=== PATIENT | male | born 1935 | race Caucasian/White ===

== ENCOUNTER 2016-08-20 17:32 | Day surgery (SDC) | payer MEDICARE, OTHER ==
[~2016-08-20] VITALS: Ht 182.9 cm; Wt 130.1 kg
[~2016-08-20 17:32] MED LIST: ASPI-611 PO; FEXO1TAB11 PO; LISI-621 PO; LISI1TAB13 PO; NAPR220T61 PO; PANT40TA27 PO; PROP120C2 PO
--- OUTSIDE RECORDS SUMMARY | 2016-08-20 17:42 | XMS REPORT | Continuity of Care Document ---
Author Author [facility] Organization [facility] Address Unknown Phone Unavailable Support Name Relationship Address Phone TORIE NASH MD Caregiver [address] [place] [address] [phone] HEBER FRENCH MD Caregiver [facility] [address] [place] [address] SNEHAL DIETZ Next Of Kin [phone] [id number] Insurance Providers Payer Name Policy Number Subscriber Name Relationship Medicare [id number] Dion Dietz 20 Self Blue Cross Select Plan 65 [id number] Dion Dietz 20 Self Advance Directives Directive Response Recorded Date/Time Ordered Resuscitation Status Full Code 05/01/14 1:49pm Problems No known problems or medical conditions. Medications Medication Dose Route Sig Days/Qty Instructions Order Date Discontinued Date Status Tamsulosin Hcl 0.4 Mg PO DAILY 08/11/08 Active Pantoprazole Sodium 40 Mg PO DAILY 08/11/08 Active Propranolol Hcl 120 Mg PO TWICE A DAY 08/11/08 Active Triamterene/Hydrochlorothiazid 1 Cap PO DAILY 08/11/08 11/10/12 Discontinued Amlodipine Besylate 5 Mg PO DAILY 08/11/08 Active Aspirin 81 Mg PO DAILY 08/11/08 Active Bumetanide 2 Mg PO DAILY 11/10/12 05/01/14 Discontinued Lisinopril 1 Tab PO DAILY 05/01/14 Active Lisinopril/Hydrochlorothiazide 1 Tab PO DAILY 05/01/14 Active Fexofenadine/Pseudoephedrine 0.5 Tab PO DAILY 05/01/14 Active Naproxen Sodium 220 Mg PO NEEDED PRN PAIN Take 1 tablet, by mouth, daily with breakfast. 05/01/14 Active Sulfamethoxazole/Trimethoprim 1 Tab PO TWICE A DAY 28 Qty 05/03/14 Active Social History Social History Problem Response Recorded Date/Time Smoking Status Never smoker 05/01/2014 12:09pm Chewing Tobacco Status No 11/09/2012 12:52pm Hx Substance Use No 05/01/2014 12:09pm Hx Alcohol Use No 05/01/2014 12:09pm Has the pt used tobacco in the last 12 months No 05/01/2014 12:09pm Query Response Start Date Stop Date Smoking Status Never smoker Hospital Discharge Instructions No hospital discharge instructions. Plan of Care No plan of care. Functional Status No functional status results. Allergies, Adverse Reactions, Alerts Allergen Type Severity Reaction Status Last Updated No Known Drug Allergies Allergy Unknown Active 01/14/11 Immunizations Name Given Type Hx Influenza Vaccination Y MAR 2014 Historical Hx Pneumococcal Vaccination Y 2007 Historical Hx Influenza Vaccination Y MAR 2014 Historical Hx Tetanus Diptheria Yes Historical Vital Signs Acute Vital Signs Vital Response Date/Time Temperature (Fahrenheit) 97.0 deg F (96.8 - 99.1) Temperature (Calculated Celsius) 36.45548 degrees C (36.0 - 37.3) Temperature Source Oral Pulse Rate (adult) 48 bpm (60 - 100) Respiratory Rate 16 breaths/min (10 - 20) O2 Sat by Pulse Oximetry 95 % (90 - 100) Oxygen Delivery Method Room Air Blood Pressure 149/65 mm Hg Blood Pressure Source Automatic Cuff Height 6 ft 0 in Weight 274 lb Body Mass Index 37.0 kg/m^2 Results Test Source Date Result Interp. Ref. Range Comments Activated Partial Thromboplast Time May 02, 2014 7:56am 32.3 SEC N 24-36 COMMENT TO SCU AT 0700 Alanine Aminotransferase (ALT/SGPT) May 02, 2014 7:56am 31 U/L N 21 -72 COMMENT TO SCU AT 0700 Albumin May 02, 2014 7:56am 4.1 G/DL N 3.5-5.0 COMMENT TO SCU AT 0700 Albumin/Globulin Ratio May 02, 2014 7:56am 1.3 RATIO N 1.1-2.2 COMMENT TO SCU AT 0700 Alkaline Phosphatase May 02, 2014 7:56am 68 U/L N 38-126 COMMENT TO SCU AT 0700 Anion Gap May 02, 2014 7:56am 13 MEQ/L N 5-15 COMMENT TO SCU AT 0700 Aspartate Amino Transf (AST/SGOT) May 02, 2014 7:56am 24 U/L N 17- 59 COMMENT TO SCU AT 0700 B-Type Natriuretic Peptide July 31, 2009 9:30pm 76 PG/ML N 15-100 BUN/Creatinine Ratio May 02, 2014 7:56am 20 RATIO N 6-26 COMMENT TO SCU AT 0700 Basophils # (Auto) May 02, 2014 7:56am 0.1 T/MM3 N 0-0.2 COMMENT TO SCU AT 0700 Basophils (%) (Auto) May 02, 2014 7:56am 1.1 % N 0-2 COMMENT TO SCU AT 0700 Blood Urea Nitrogen May 02, 2014 7:56am 18.0 MG/DL N 9-20 COMMENT TO SCU AT 0700 Calcium Level May 02, 2014 7:56am 9.5 MG/DL N 8.4-10.2 COMMENT TO SCU AT 0700 Calculated Osmolality May 02, 2014 7:56am 279 MOSM/KG N 261-280 COMMENT TO SCU AT 0700 Carbon Dioxide Level May 02, 2014 7:56am 29 MEQ/L N 22-30 COMMENT TO SCU AT 0700 Chemistry Specimen Hemolysis May 02, 2014 7:56am < 15 0-25 0-25 : No Hemolysis.26-70: Slight Hemolysis - can falsely elevate K and Urine Protein. 71-285: Moderate Hemolysis - can falsely elevate K, Troponin I, CA 19-9, PTH, CSF GLucose, and Urine Protein, and can falsely decrease Phenytoin. 286-999: Gross Hemolysis - can falsely elevate K, Troponin I, CA 19-9, PTH, CSF Glucose, and Urine Protine, and can falsely decrease Phenytoin. Recommend specimen recollection. Chloride Level May 02, 2014 7:56am 102 MEQ/L N 98-107 COMMENT TO SCU AT 0700 Creatine Kinase MB December 24, 2012 11:46am 1.3 NG/ML N 0-3.4 Creatinine May 02, 2014 7:56am 0.9 MG/DL N 0.8-1.5 COMMENT TO SCU AT 0700 D-Dimer December 24, 2012 11:46am < 150 NG/ML 0-230 <224 NG/ML= PRESUMPTIVE NEGATIVE FOR PE OR DVT>224 NG/ML=ADDITIONAL EVALUATION FOR PE OR DVT RECOMMENDED Eosinophils # (Auto) May 02, 2014 7:56am 0.3 T/MM3 N 0-0.5 COMMENT TO SCU AT 0700 Eosinophils (%) (Auto) May 02, 2014 7:56am 3.1 % N 0-4 COMMENT TO SCU AT 0700 Erythrocyte Sedimentation Rate January 14, 2011 1:40pm 11 MM/HR N 0-15 Globulin May 02, 2014 7:56am 3.2 G/DL N 2.4-3.6 COMMENT TO SCU AT 0700 Glomerular Filtration Rate Calc May 02, 2014 7:56am 82 - COMMENT TO SCU AT 0700 Glucose Level May 02, 2014 7:56am 104 MG/DL N 75-110 COMMENT TO SCU AT 0700 Hematocrit May 02, 2014 7:56am 45.4 % N 41-53 COMMENT TO SCU AT 0700 Hemoglobin May 02, 2014 7:56am 15.3 GM/DL N 13.5-17.5 COMMENT TO SCU AT 0700 Icterus Index May 02, 2014 7:56am < 2 0-7 COMMENT TO SCU AT 0700 Immature Granulocyte # (Auto) May 02, 2014 7:56am 0.01 T/MM3 N 0.00 -0.03 COMMENT TO SCU AT 0700 Immature Granulocyte % (Auto) May 02, 2014 7:56am 0.1 % N 0.0-0.5 COMMENT TO SCU AT 0700 Lab Scanned Report February 14, 2014 12:05pm LAB TEST FORM REQUEST [id number] - Lymphocytes # (Auto) May 02, 2014 7:56am 2.6 T/MM3 N 1-4.8 COMMENT TO SCU AT 0700 Lymphocytes (%) (Auto) May 02, 2014 7:56am 31.4 % N 23-45 COMMENT TO SCU AT 0700 Mean Corpuscular Hemoglobin May 02, 2014 7:56am 29.0 UUG N 26-34 COMMENT TO SCU AT 0700 Mean Corpuscular Hemoglobin Concent May 02, 2014 7:56am 33.7 GM/DL N 31-37 COMMENT TO SCU AT 0700 Mean Corpuscular Volume May 02, 2014 7:56am 86.0 UM3 N 80-100 COMMENT TO SCU AT 0700 Mean Platelet Volume May 02, 2014 7:56am 10.9 UM3 N 9.4-12.4 COMMENT TO SCU AT 0700 Monocytes # (Auto) May 02, 2014 7:56am 0.6 T/MM3 N 0-0.8 COMMENT TO SCU AT 0700 Monocytes (%) (Auto) May 02, 2014 7:56am 7.4 % N 0-9.0 COMMENT TO SCU AT 0700 Neutrophils # (Auto) May 02, 2014 7:56am 4.8 T/MM3 N 1.8-7.7 COMMENT TO SCU AT 0700 Neutrophils (%) (Auto) May 02, 2014 7:56am 56.9 % N 33-66 COMMENT TO SCU AT 0700 Platelet Count May 02, 2014 7:56am 204 T/MM3 N 130-400 COMMENT TO SCU AT 0700 Potassium Level May 02, 2014 7:56am 3.8 MEQ/L N 3.6-5 COMMENT TO SCU AT 0700 Prothromb Time International Ratio May 02, 2014 7:56am 1.05 N 0.81- 1.09 THERAPUTIC RANGE=2.00-3.00 FOR ANTI-THROMBOSIS THERAPUTIC RANGE=2.50- 3.50 FOR IMPLANTED VALVE RDW Standard Deviation May 02, 2014 7:56am 43.5 FL N 36.9-50.2 COMMENT TO SCU AT 0700 Red Blood Count May 02, 2014 7:56am 5.28 M/MM3 N 4.50-5.90 COMMENT TO SCU AT 0700 Sodium Level May 02, 2014 7:56am 144 MEQ/L N 134-144 COMMENT TO SCU AT 0700 Total Bilirubin May 02, 2014 7:56am 1.10 MG/DL N 0.20-1.30 COMMENT TO SCU AT 0700 Total Protein May 02, 2014 7:56am 7.3 G/DL N 6.3-8.2 COMMENT TO SCU AT 0700 Troponin I December 24, 2012 11:46am 0.015 ng/ml N 0-0.12 Turbidity May 02, 2014 7:56am < 20 0-20 COMMENT TO SCU AT 0700 Urine Bacteria February 14, 2014 11:15am 3+ H - Urine Bilirubin February 14, 2014 11:15am Negative - Urine Blood February 14, 2014 11:15am 2+ H - Urine Collection Type February 14, 2014 11:15am Voided-not cc-midstr - Urine Color February 14, 2014 11:15am [place] - Urine Culture Indicated February 14, 2014 11:15am Cult reflexed &setup - Urine Glucose (UA) February 14, 2014 11:15am Trace H - Urine Ketones February 14, 2014 11:15am 1+ H - Urine Leukocyte Esterase February 14, 2014 11:15am 2+ H - Urine Nitrite February 14, 2014 11:15am Positive H - Urine Protein February 14, 2014 11:15am 2+ H - Urine RBC February 14, 2014 11:15am 10-20 /HPF H - Urine Renal Epithelial Cells February 14, 2014 11:15am 1-3 /HPF - Urine Specific [place] February 14, 2014 11:15am 1.025 - Urine Squamous Epithelial Cells February 14, 2014 11:15am 0-5 - Urine Turbidity February 14, 2014 11:15am Clear - Urine Urobilinogen February 14, 2014 11:15am >=8.0 EU/DL H - Urine WBC February 14, 2014 11:15am Tntc /HPF H - Urine WBC Clumps February 14, 2014 11:15am Moderate H - Urine pH February 14, 2014 11:15am 5.0 - White Blood Count May 02, 2014 7:56am 8.4 T/MM3 N 4.5-11.0 COMMENT TO SCU AT 0700 Urine Culture Urine, Voided-Not Cc-Midstream February 14, 2014 12:04pm Enterobacter Aerogenes Name: DION DIETZ Unit #: [id number] : 1935 Sex: M Loc / Svc: [facility] DOS: 02/14/14 Signed Report #: [id number] DIAGNOSTIC IMAGING REPORT TYPE OF EXAM: US BLADDER Dictated By: AYSE QUINN MD INDICATION: ITS.REASON: 600.2, 595.0 BPH WITH URINARY PROBLEM US BLADDER: Comparison: None Findings: Grayscale and color Doppler imaging of the bladder shows the presence of bilateral ureteral jets. Bladder volume is somewhat low. There is an impression on the bladder base by the prostate which appears mildly enlarged, but is incompletely evaluated. Very minimal emptying of the bladder on postvoid images with some debris seen in the dependent aspect. Pre-void bladder volume was 250.2 mL. Postvoid bladder volume is 186.1 mL. Impression: Very minimal bladder emptying with a postvoid residual of 74%. . Procedures Procedure Status Date Provider(s) Transurethral resection of prostate (TURP) completed 05/02/14 TORIE NASH MD Encounters Encounter Location Date/Time Registered [facility] 02/14/14 11:52am Registered [facility] 02/14/14 11:37am
--- OUTSIDE RECORDS SUMMARY | 2016-08-20 17:42 | XMS REPORT | Summary of Care ---
Author Author Gordon Ayoub M.D. Organization Unknown Address [address] [place], [place] [id number] Phone Unavailable Care Team Providers Care Dba Developer Name Role Phone Naima Arauznuno MORGAN Unavailable Functional Status Functional Status Health Issues* Name Dates Details Functional status health issues are not documented Status: Cognitive Status Health Issues* Name Dates Details Cognitive status health issues are not documented Status: Problems Name Dates Details Migraine without aura, intractable (346.11, G43.019) Status: Active Medications Name Dates Details Inderal LA 120 MG Oral Capsule Extended Release 24 Hour TAKE 1 CAPSULE TWICE DAILY. Quantity: 60 * Started 08-Feb-2013 ActiveFexofenadine HCl - 180 MG Oral Tablet TAKE 1/2 TABLET DAILY * Refills: 0 * Started 08-Feb-2013 ActiveLisinopril 20 MG Oral Tablet TAKE 1 TABLET DAILY. * Refills: 0 * Started 08-Feb-2013 ActiveLisinopril-Hydrochlorothiazide 20-25 MG Oral Tablet * Refills: 0 * Started 08-Feb-2013 ActivePantoprazole Sodium 40 MG Oral Tablet Delayed Release TAKE 1 TABLET DAILY. * Quantity: 30 Refills: 12 * Started 08-Feb-2013 ActiveMeloxicam 7.5 MG Oral Tablet 10mg, patient is using this medicine as a research drug for arthritis * Refills: 0 * Started 08-Feb-2013 ActiveAspirin 81 MG Oral Tablet TAKE 1 TABLET DAILY. 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, K22.70) Status: Resolved History of cluster headache (V12.49, Z86.69) Status: Resolved History of deafness (V12.49, Z86.69) Status: Resolved History of dizziness (V13.89, Z87.898) Status: Resolved History of head injury (V15.59, Z87.828) Status: Resolved History of hypertension (V12.59, Z86.79) Status: Resolved History of Numbness (782.0, R20.0) Status: Resolved History of pollen-food allergy (V15.05, Z91.018) Status: Resolved History of sleep apnea (V13.89, Z87.898) Status: Resolved History of tinnitus (V12.49, Z86.69) Status: Resolved History of Vision problems (V41.0, H54.2) Status: Resolved Procedures Procedure Dates Details History of Back Surgery History of Knee Surgery History of Gallbladder Surgery History of Appendectomy Procedures not documented Immunization Name Dates Details Immunizations not documented Family History Mother* Name Dates Details Family history of Mother At Age ____ Status: Active Family history of Hypertension (V17.49) Status: Active Father* Name Dates Details Family history of Father At Age ____ Status: Active Family history of Hypertension (V17.49) Status: Active Family history of Stroke Syndrome (V17.1) Status: Active Social History Name Dates Details Smoking Status* Never smoker Vital Signs Date Test Result Details 20-Jul-2014 15:34 BP Systolic 136 mm[Hg] Status: BP Diastolic 60 mm[Hg] Status: Heart Rate 60 /min Status: Weight 287.5 lb Status: Results Date Description Value Details Results not documented Plan of Care Planned Observations* Name Dates Details Planned Goals not documented Goal Planned Encounters* Appointment; Provider: Gordon Ayoub On 19-Jul-2015 16:00 Instructions * Instructions not documented Encounters Appointment; Gordon Ayoub Encounter Diagnosis: Problem not documented On 20-Jul-2014 15:15 Appointment; Gordon Ayoub Encounter Diagnosis: Problem not documented On 14-Feb-2014 14:15 Appointment; Gordon Ayoub Encounter Diagnosis: Problem not documented On 08-Feb-2013 10:00
--- OUTSIDE RECORDS SUMMARY | 2016-08-20 17:42 | XMS REPORT | Summary of Care ---
Author Author Lul Argueta M.D. Unknown Address [address] [place] [address] [place] [address] Phone Unavailable Care Team Providers Care Cloth Measurer Name Role Phone Carlito Arauz PP Unavailable Functional Status Functional Status Health Issues* Name Dates Details Functional status health issues are not documented Status: Cognitive Status Health Issues* Name Dates Details Cognitive status health issues are not documented Status: Problems Name Dates Details Migraine without aura, intractable (346.11, G43.019) Status: Active BPH (benign prostatic hypertrophy) with urinary obstruction (600.01, N40.1) Status: Active Incomplete bladder emptying (788.21, R33.9) Status: Active Prostate cancer (185, C61) Status: Active Medications Name Dates Details Inderal [...] dizziness (V13.89, Z87.898) Status: Resolved History of Encounter for postoperative care (V58.49, Z48.89) Status: Resolved History of head injury (V15.59, Z87.828) Status: Resolved History of hypertension (V12.59, Z86.79) Status: Resolved History of Numbness (782.0, R20.0) Status: Resolved History of pollen-food allergy (V15.05, Z91.018) Status: Resolved History of sleep apnea (V13.89, Z87.09) Status: Resolved History of tinnitus (V12.49, Z86.69) Status: Resolved History of urinary tract infection (V13.02, Z87.440) Status: Resolved History of Vision problems (V41.0, H54.7) Status: Resolved Procedures Procedure Dates Details History of Back Surgery History of Knee Surgery History of Gallbladder Surgery History of Appendectomy History of Colonoscopy History of Reported Hx Of Knee Replacement History of Cholecystectomy Laparoscopic History of Hernia Repair History of Transurethral Resection Of Prostate (TURP) Procedures not documented Immunization Name Dates Details Immunizations not documented Family History Unknown Family Member* Name Dates Details No family history of breast cancer Comments: Other Status: Active No family history of kidney disease (V49.89, Z78.9) Comments: Family History Status: Active Family history of cerebrovascular accident (CVA) (V17.1, Z82.3) Comments: Family History Status: Active Mother* Name Dates Details Family history of Mother At Age ____ Status: Active Family history of Hypertension (V17.49) Status: Active Father* Name Dates Details Family history of Father At Age ____ Status: Active Family history of Hypertension (V17.49) Status: Active Family history of Stroke Syndrome (V17.1) Status: Active Social History Name Dates Details Smoking Status* Never smoker Vital Signs Date Test Result Details 16-May-2015 14:18 BP Systolic 140 mm[Hg] Status: BP Diastolic 78 mm[Hg] Status: Heart Rate 65 /min Status: Height 73 in Status: Weight 287 lb Status: Body Mass Index Calculated 37.87 kg/m2 Status: Body Surface Area Calculated 2.51 m2 Status: Results Date Description Value Details Results not documented Plan of Care Planned Observations* Name Dates Details Planned Goals not documented Goal Planned Encounters* Appointment; Provider: Lul Argueta On 21-May-2016 13:30 * Appointment; Provider: Gordon Ayoub On 19-Jul-2015 16:00 Instructions * Instructions not documented Encounters Appointment; Lul Argueta Encounter Diagnosis: Problem not documented On 16-May-2015 14:00 Appointment; Gordon Ayoub Encounter Diagnosis: Problem not documented On 20-Jul-2014 15:15 Appointment; Gordon Ayoub Encounter Diagnosis: Problem not documented On 14-Feb-2014 14:15
--- OUTSIDE RECORDS SUMMARY | 2016-08-20 17:42 | XMS REPORT | Summary of Care ---
Author Author Lul Argueta M.D. Unknown Address [address] [place] [address] [place] [address] Phone Unavailable Care Team Providers Care Case Making Machine Operator Name Role Phone Lul Argueta M.D. Unavailable Unavailable Mason Banks Unavailable Unavailable Functional Status Name Dates Details Functional status health issues are not documented Status: Name Dates Details Cognitive status health issues are not documented Status: Problems Name Dates Details Incomplete bladder emptying (788.21, R33.9) Status: Active Diplopia (368.2, H53.2) Status: Active Migraine without aura, intractable (346.11, G43.019) Status: Active Prostate cancer (185, C61) Status: Active BPH (benign prostatic hypertrophy) with urinary obstruction (600.01, N40.1) Status: Active Medications Name Dates Details Inderal LA 120 MG Oral Capsule Extended Release 24 Hour TAKE 1 CAPSULE TWICE DAILY. Quantity: 60 * Start 08-Feb-2013 Active Fexofenadine HCl - 180 MG Oral Tablet TAKE 1/2 TABLET DAILY * Refills: 0 * Start 08-Feb-2013 Active Lisinopril 20 MG Oral Tablet TAKE 1 TABLET DAILY. * Refills: 0 * Start 08-Feb-2013 Active Lisinopril-Hydrochlorothiazide 20-25 MG Oral Tablet * Refills: 0 * Start 08-Feb-2013 Active Pantoprazole Sodium 40 MG Oral Tablet Delayed Release TAKE 1 TABLET DAILY. * Quantity: 30 Refills: 12 * Start 08-Feb-2013 Active Meloxicam 7.5 MG Oral Tablet 10mg, patient is using this medicine as a research drug for arthritis * Refills: 0 * Start 08-Feb-2013 Active Aspirin 81 MG TABS TAKE 1 TABLET DAILY. * Refills: 0 * Start 08-Feb-2013 Active Allergies and Adverse Reactions Name Dates Details No Known Drug Allergies (Allergy) Status: Active Past Medical History Name Dates [...] History of Transurethral Resection Of Prostate (TURP) PSA ( PROSTATE SPECIFIC ANTIGEN) 3100 Ordered: 21-May-2016 Immunization Name Dates Details Immunizations not documented Family History Name Dates Details No family history of breast cancer Comments: Other Status: Active No family history of kidney disease (V49.89, Z78.9) Comments: Family History Status: Active Family history of cerebrovascular accident (CVA) (V17.1, Z82.3) Comments: Family History Status: Active Name Dates Details Family history of Mother At Age ____ Status: Active Family history of Hypertension (V17.49) Status: Active Name Dates Details Family history of Father At Age ____ Status: Active Family history of Hypertension (V17.49) Status: Active Family history of Stroke Syndrome (V17.1) Status: Active Social History Name Dates Details - Status: Name Dates Details Never smoker Vital Signs Date Test Result Details 21-May-2016 13:45 Weight 285 lb Status: Body Mass Index Calculated 37.6 kg/m2 Status: Body Surface Area Calculated 2.5 m2 Status: Results Date Description Value Details Results not documented Plan of Care Name Dates Details Planned Observations Planned Goals not documented Planned Encounters Appointment; Provider: Lul Argueta M.D. On 22-May-2017 13:30 Appointment; Provider: Gordon Ayoub M.D. On 17-Jul-2016 16:00 Interventions Provided Labs/Procedures/Imaging* PSA ( PROSTATE SPECIFIC ANTIGEN) 3100; To be Done: 21 May 2016 Instructions Name Dates Details Instructions not documented Encounters Appointment; Gordon Ayoub M.D. Encounter Diagnosis: Problem not documented On 19-Jul-2015 16:00 Appointment; Lul Argueta M.D. Encounter Diagnosis: Problem not documented On 16-May-2015 14:00 Appointment; Gordon Ayoub M.D. Encounter Diagnosis: Problem not documented On 20-Jul-2014 15:15
--- OUTSIDE RECORDS SUMMARY | 2016-08-20 17:42 | XMS REPORT | Summary of Care ---
Author Author Lul Argueta M.D. Unknown Address [address] [place] [address] [place] [address] Phone Unavailable Care Team Providers Care Drill Press Operator Helper Name Role Phone Mason Banks Unavailable Unavailable Functional Status Name [...] m2 Status: Results Date Description Value Details 22-May-2016 09:40 PSA ( PROSTATE SPECIFIC ANTIGEN) 3100 PROSTATE SPECIFIC ANTIGEN 0.090 ng/mL Range: 0.000-4.000 Plan of Care Name Dates Details Planned Observations Planned Goals not documented Planned Encounters Appointment; Provider: Lul Argueta M.D. On 22-May-2017 13:30 Appointment; Provider: Gordon Ayoub M.D. On 17-Jul-2016 16:00 Instructions Name Dates Details Instructions not documented Encounters Appointment; Lul Argueta M.D. Encounter Diagnosis: Problem not documented On 21-May-2016 13:30 Appointment; Gordon Ayoub M.D. Encounter Diagnosis: Problem not documented On 19-Jul-2015 16:00 Appointment; Lul Argueta M.D. Encounter Diagnosis: Problem not documented On 16-May-2015 14:00 Appointment; Gordon Ayoub M.D. Encounter Diagnosis: Problem not documented On 20-Jul-2014 15:15
--- OUTSIDE RECORDS SUMMARY | 2016-08-20 17:43 | XMS REPORT | Continuity of Care Document ---
Author Author [facility] Organization [facility] Address Unknown Phone Unavailable Support Name Relationship Address Phone HEBER FRENCH MD Caregiver [address] [place] [address] Unavailable VALARIE JAY MD Caregiver [address] [place] [address] Unavailable SNEHAL DITEZ Next Of Kin [phone] [address] Insurance Providers Guarantor J LuisDion C Address [address] [address] Email [email or web address] Payer [employer] Medicare Supplement Policy Number [id number] Subscriber's Name Dion Dietz Relationship 18 Self Group Number [id number] Effective Date 14 Payer Medicare Policy Number [id number] Subscriber's Name Dion Dietz Relationship 18 Self Effective Date 02 Advance Directives Directive Response Recorded Date/Time Advanced Directives Type Living Will DPOA for Healthcare 11/30/15 5:29pm Chief Complaint and Reason for Visit Chief Complaint Laceration Reason for Visit Laceration of thumb Problems Active Problems Medical Problem Onset Date Status BPH (benign prostatic hypertrophy) Unknown Chronic Bradycardia with 31 - 40 beats per minute Unknown Acute Chest pain Unknown Acute Cluster headaches Unknown Chronic HTN (hypertension) Unknown Chronic Leukocytosis Unknown Acute SUMEET on CPAP Unknown Chronic Obesity (BMI 30-39.9) Unknown Chronic Osteoarthritis Unknown Chronic Past Problems Medical Problem Onset Date Laceration of thumb Unknown Medications Current Home Medications Medication Dose Units Route Directions Days Qty Instructions Start Date Aspirin 81 Mg Tablet 81 Mg Oral Daily 08/11/08 Fexofenadine/Pseudoephedrine (Rowan-D 24 Hour Tablet) 1 Each Tab.er.24h 0.5 Tab Oral Daily 05/01/14 Lisinopril 20 Mg Tablet 20 Mg Oral Daily 05/01/14 Lisinopril/Hydrochlorothiazide (Lisinopril-Hctz 20-25 Mg Tab) 1 Each Tablet 1 Tab Oral Daily 05/01/14 Naproxen Sodium (Aleve) 220 Mg Tablet 220 Mg Oral As Needed as needed for Pain 05/01/14 Pantoprazole Sodium 40 Mg Tablet. 40 Mg Oral Twice A Day Propranolol Hcl 120 Mg Cap.sa.24h 120 Mg Oral Twice A Day Past Home Medications Medication Directions Ordered Status Amlodipine Besylate (Norvasc) 10 Mg Tablet, 5 Mg Oral Daily 08/11/08 Discontinued Bumetanide (Bumex) 2 Mg Tablet, 2 Mg Oral Daily 11/10/12 Discontinued Pantoprazole Sodium (Protonix) 40 Mg Tablet., 40 Mg Oral Daily 08/11/08 Discontinued Propranolol Hcl 120 Mg Cap.sa.24h, 120 Mg Oral Twice A Day 08/11/08 Discontinued Triamterene/Hydrochlorothiazid (Triamterene-Hctz 37.5/25 Cp) 1 Cap Capsule, 1 Cap Oral Daily 08/11/08 Discontinued Social History Social History Problem Response Recorded Date/Time Onset Date Status Chewing Tobacco Status No 11/09/2012 12:52pm Not Applicable Not Applicable Hx Substance Use No 11/30/2015 5:47pm Not Applicable Not Applicable Hx Alcohol Use No 11/30/2015 5:47pm Not Applicable Not Applicable Has the pt used tobacco in the last 12 months No 10/18/2014 7:42am Not Applicable Not Applicable Tobacco Usage none 10/15/2014 9:43am Not Applicable Not Applicable Query Response Start Date Stop Date Smoking Status Never smoker Hospital Discharge Instructions No hospital discharge instructions. Plan of Care Discharge Date 11/30/15 6:48pm Disposition 01 DISCHARGED HOME, SELF-CARE Condition at Discharge Stable Instructions/Education Provided DI for Laceration Repair -- Simple Prescriptions See Medication Section Referrals HEBER FRENCH MD Address: [address] [place] [address] [place] [phone] Additional Instructions/Education Keep the dressing on until this evening. May remove and replace daily. Wash daily with soap and water. Have sutures removed in 7-10 days at your primary care provider's office. If any further concerns then return to ER. Care Plan and Goals Physician Care Plan Problem:Thumb Laceration Goal: Follow up with primary care provider Instructions: Take medications and follow care plan as discussed/written Functional Status No functional status results. Allergies, Adverse Reactions, Alerts Allergen Type Severity Reaction Status Last Updated No Known Drug Allergies Allergy Unknown Active 11/30/15 Immunizations Immunization Event Date Type Not Given Reason Dose Number Lot Number Sap Senior Developer VIS Given Td (adult), adsorbed 11/30/15 Administered 1 [id number] [employer] Query Response on File Recorded Date/Time Hx Influenza Vaccination Y MAR 2014 10/18/14 7:42am Hx Pneumococcal Vaccination Y 2007-SEE NOTE ON CLINICAL RESEARCH FOR PNEUMONIA. 10/18/14 7:42am Hx Influenza Vaccination Y MAR 2014 10/18/14 7:42am Hx Tetanus Diptheria Yes 10/14/14 11:00pm Influenza Vaccine Hx 201411/30/15 5:47pm Tetanus Diptheria Vaccine History 11/30/15 11/30/15 5:59pm Tdap Vaccine Hx UNKNOWN 11/30/15 5:47pm Vital Signs Acute Vital Signs Vital Response Date/Time Temperature (Fahrenheit) 98.3 deg F (96.8 - 99.1) 11/30/2015 5:29pm Temperature (Calculated Celsius) 36.49498 degrees C (36.0 - 37.3) 11/30/2015 5:29pm Pulse Rate (adult) 57 bpm (60 - 100) 11/30/2015 5:29pm Respiratory Rate 20 breaths/min (10 - 20) 11/30/2015 5:29pm O2 Sat by Pulse Oximetry 95 % (90 - 100) 11/30/2015 5:29pm Blood Pressure 188/90 mm Hg 11/30/2015 5:29pm Height (Feet) 6 feet 11/30/2015 5:29pm Height (Inches) 1.00 inches 11/30/2015 5:29pm Weight (Kilograms) 125.700 kg 11/30/2015 5:29pm Body Mass Index (BMI) 36.0 11/30/2015 5:29pm Results No known relevant diagnostic tests, laboratory data and/or discharge summary. Procedures Procedure Status Date Provider(s) X-RAY EXAM OF KNEE 1 OR 2 Completed 09/05/15 X-RAY EXAM OF KNEES Completed 09/05/15 Encounters Encounter Location Arrival/Admit Date Discharge/Depart Date Attending Provider Departed Emergency Room [facility] 11/30/15 5:27pm 11/30/15 6: 48pm VALARIE JAY MD Registered Clinic [facility] 09/05/15 11:04am HEBER FRENCH MD Recent Diagnosis
--- OUTSIDE RECORDS SUMMARY | 2016-08-20 17:43 | XMS REPORT | Summary of Care ---
Author Author Gordon Ayoub M.D. Unknown Address Unknown Phone Unavailable Care Team Providers Care Nurse Head Name Role Phone Bibi Ayoub M.D. 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 Quantity: 60 * Start 08-Feb-2013 Active Fexofenadine [...] 30 Refills: 12 * Start 08-Feb-2013 Active Aspirin 81 MG TABS TAKE 1 TABLET DAILY. * Refills: 0 * Start 08-Feb-2013 Active Inderal LA 80 MG Oral Capsule Extended Release 24 Hour TAKE 1 CAPSULE Daily Alternate with 120mg every other day. * Refills: 0 * Start 17-Jul-2016 Active AmLODIPine Besylate 5 MG Oral Tablet TAKE 1 TABLET DAILY. * Refills: 0 * Start 17-Jul-2016 Active Allergies and Adverse Reactions Name Dates [...] Status: Resolved History of sleep apnea (V13.89, Z86.69) Status: Resolved History of tinnitus (V12.49, Z86.69) [...] smoker Vital Signs Date Test Result Details 17-Jul-2016 16:05 BP Systolic 140 mm[Hg] Status: Comments: Location: ; Position: BP Diastolic 80 mm[Hg] Status: Comments: Location: ; Position: Heart Rate 80 /min Status: Comments: Location: ; Weight 289 lb Status: Body Mass Index Calculated 38.13 kg/m2 Status: Body Surface Area Calculated 2.52 m2 Status: Results Date Description Value Details Results not documented Plan of Care Name Dates Details Planned Observations Planned Goals not documented Planned Encounters Appointment; Provider: Gordon Ayoub M.D. On 21-Jul-2017 15:30 Appointment; Provider: Lul Argueta M.D. On 22-May-2017 13:30 Instructions Name Dates Details Instructions not documented Encounters Appointment; Lul Argueta M.D. Encounter Diagnosis: Problem not documented On 21-May-2016 13:30 Appointment; Gordon Ayoub M.D. Encounter Diagnosis: Problem not documented On 19-Jul-2015 16:00 Appointment; Lul Argueta M.D. Encounter Diagnosis: Problem not documented On 16-May-2015 14:00 Appointment; Gordon Ayoub M.D. Encounter Diagnosis: Problem not documented On 20-Jul-2014 15:15
--- OUTSIDE RECORDS SUMMARY | 2016-08-20 17:43 | XMS REPORT | Summary of Care ---
Author Author Lul Argueta M.D. Unknown Address [address] [place] [address] [place] [address] Phone Unavailable Care Team Providers Care Relay Assembler Name Role Phone Lul Argueta M.D. Unavailable [...]
--- OUTSIDE RECORDS SUMMARY | 2016-08-20 17:43 | XMS REPORT | Continuity of Care Document ---
Author Author [facility] Organization [facility] Address Unknown Phone Unavailable Allergies Medications Problems Date Dx Coded Attending Type Code Diagnosis Diagnosed By 10/11/2012 Gilberto Gooden MD 416.[address] [facility] PULMON HEART DIS NEC 10/11/2012 Gilberto Gooden MD 416.8 [facility] PULMON HEART DIS NEC 10/11/2012 Gilberto Gooden MD 416.[address] [facility] PULMON HEART DIS NEC Procedures Results Test Result Range BLOOD UREA NITROGEN - 10/11/12 12:39 BLOOD UREA NITROGEN 17 mg/dL 7-20 CREATININE - 10/11/12 12:39 CREATININE 1.1 mg/dL 0.8-1.3 Encounters ACCT No. Visit Date/Time Discharge Status Pt. Type Provider Facility Loc./Unit Complaint [id number] 10/11/2012 12:19:00 2012 12:19:00 DIS Outpatient Giacomo HUSTON, Gilberto [facility] W.LAB
--- OUTSIDE RECORDS SUMMARY | 2016-08-20 17:43 | XMS REPORT | Summary of Care ---
Author Author Gordon Ayoub M.D. 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 Evaluation [id number] Ordered:19-Jul-2015 Immunization Name Dates Details Immunizations not documented [...] smoker Vital Signs Date Test Result Details 19-Jul-2015 16:09 BP Systolic 130 mm[Hg] Status: BP Diastolic 82 mm[Hg] Status: Heart Rate 78 /min Status: Weight 285 lb Status: Body Mass Index Calculated 37.6 kg/m2 Status: Body Surface Area Calculated 2.5 m2 Status: Results Date Description Value Details Results not documented Plan of Care Planned Observations* Name Dates Details Planned Goals not documented Goal Planned Encounters* Appointment; Provider: Gordon Ayoub On 17-Jul-2016 16:00 * Appointment; Provider: Lul Argueta On 21-May-2016 13:30 Instructions * Instructions not documented Encounters Appointment; Gordon Ayoub Encounter Diagnosis: Problem not documented On 19-Jul-2015 16:00 Appointment; Lul Argueta Encounter Diagnosis: Problem not documented On 16-May-2015 14:00 Appointment; Gordon Ayoub Encounter Diagnosis: Problem not documented On 20-Jul-2014 15:15 Appointment; Gordon Ayoub Encounter Diagnosis: Problem not documented On 14-Feb-2014 14:15
[2016-08-20] MEDS ORDERED: FEXO180T94 PO (17:58)
[2016-08-20] MEDS ORDERED: FEXO-11 PO (17:58)
--- NOTE | 2016-08-20 18:01 | ERPDOC ---
Departure Disposition Decision Date: Aug 20, 2016 Disposition Decision Time: 20:05 Disposition: 02 TO [facility] Impression Impression Impression: Primary Impression: Chest pain, rule out acute myocardial infarction Condition: Improved Seen By: Mid-level only Referrals: HEBER FRENCH MD (Family) Problems/Meds/Labs Reviewed?: Yes Medications reviewed and manag: Yes Follow up care ordered?: Yes Mental Status: Alert, Oriented HPI - Chest Pain General Chief Complaint: Chest Pain Stated Complaint: CHEST PAIN Time Seen by Provider: 17:50 Source: patient HPI - Chest Pain Initial Comments 80-year-old male presents to ER with onset of substernal and left anterior chest pain around 1700 today. Patient reports pain has improved at this time. Rating pain a 1-2/10 at this time. Pain was accompanied by nausea and diaphoresis. Patient says he felt like he needed to burp but could not. Patient states that he had been working outside today shoveling and pulling tree stump prior to onset. Patient heart cauterization October of 2014 minimal occlusive disease. 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 Occurred At: home Pain/Severity Scale: Now: 1/10, Worst: 8/10 Location: substernal, anterior L Quality: pressure Associated Symptoms: diaphoresis, nausea/vomiting, DENIES: abdominal pain, back pain, dizziness, edema, fast HR, fatigue, fever/chills, headache, heartburn , irregular HR, rash, shortness of breath, slow HR, swelling/lump in chest, syncope, weakness Chest Pain Radiation: no radiation Nitro Today/Relief: 0.4 mg x 2, complete relief Aspirin Treatment Today: 81 mg x 4, provided by ED Prior Chest Pain/Cardiac Hallie: cardiac cath Allergies: Coded Allergies: No Known Drug Allergies (Verified Allergy, Unknown, 08/20/16) Past History Past Medical History Metabolic: hypertension, DENIES: diabetes Cardiac: angina Respiratory: DENIES: COPD, asthma GI: other (Gross's esophagus), DENIES: ulcers Male: DENIES: renal insufficiency Neurological: headaches Musculoskeletal: back pain, osteoarthritis Surgical History General: appendix, back, gallbladder, hernia Cardiac: cardiac cath Reproductive/: TURP Joint: knee Family History Family PMH: FOUND: CVA, hypertension Vaccines Hx Influenza Vaccination: Yes (MAR 2014) Hx Pneumococcal Vaccination: Yes (2008-SEE NOTE ON CLINICAL RESEARCH FOR PNEUMONIA.) Hx Tetanus Diptheria: Yes Social History Sexuality: female partner Review of Systems Constitutional Constitutional: DENIES: chills, dizziness, fever, weakness Eyes General: DENIES: erythema, exudate Lids/Accessories: DENIES: erythema, swelling ENMT Ears: DENIES: pain Sinuses: DENIES: congestion, rhinorrhea Mouth/Throat: DENIES: sore throat Cardiovascular Cardiac: chest pain, see HPI, DENIES: murmur Rhythm/Rate: DENIES: palpitations Pulmonary Respiratory: cough, see HPI, DENIES: dyspnea GI Upper Abdomen: nausea, see HPI, DENIES: pain, vomiting Lower Abdomen: DENIES: diarrhea, pain General: DENIES: dysuria, pain Musculoskeletal General: DENIES: joint pain, pain, tenderness Integumentary Skin: DENIES: color change, itching, rash Neurological General: DENIES: ataxia, change in strength, numbness, paralysis/paresis, weakness Psychiatric Psychiatric: DENIES: anxiety, depression, nervousness Physical Exam General General Nourishment: well nourished, well developed, no acute distress, adult, obese Vitals and Pain First Documented Vital Signs Date Time Temp Pulse Resp B/P Pulse Ox O2 Delivery O2 Flow Rate FiO2 08/20/16 17:36 98.3 54 22 176/77 98 Room Air Weight: Kilograms: 129.000 Height (feet): 6 Height (inches): 0 Triage Pain Scale: Eyes (brief) Eyes Brief: found: EOMI, PERRL ENMT (brief) ENMT Brief: FOUND: mucosa moist, NOT FOUND: nasal exudate, nasal swelling, pharnyx erythema Neck (brief) Neck: FOUND: trachea midline, NOT FOUND: adenopathy, spasm, tenderness, thyromegaly Respiratory (brief) Respiratory: FOUND: clear all wells, equal bilaterally, symmetrical Cardiovascular Auscultation: FOUND: S1, S2 Edema : Edema Site: bilateral Edema Location: leg Edema Degree: 2+ Abdomen (brief) Abdominal Brief: FOUND: bowel normo active x4, soft, NOT FOUND: distended, tender Musculoskeletal (brief) Musculoskeletal Brief: NOT FOUND: deformity, tenderness Integumentary (brief) Integumentary Brief: FOUND: dry, pink, warm Neurologic (brief) Neurological Brief: FOUND: CN w/o gross def to obs, motor-no gross deficits, sensory-no gross deficits Psychiatric (brief) Psychiatric Brief: FOUND: alert, normal affect, oriented Differential Diagnoses Considering: Acute FL, Angina, CHF, Esophageal Spasm, Hypertensive Emergency, Pulmonary Edema, Pulmonary Embolus, Muscle Spasm Progress Results/Orders Orders Procedure Category Date Status Time EKG EKG 08/20/16 Taken 17:33 Cmp - Comprehensive LAB 08/20/16 Complete Metabolic 18:13 Probnp LAB 08/20/16 Complete 18:13 Cbc W/Auto LAB 08/20/16 Complete Diff-Reflex Manual 18:13 INR LAB 08/20/16 Complete 18:13 PTT LAB 08/20/16 Complete 18:13 Troponin I W LAB 08/20/16 Complete Hemolysis Index 18:13 Chest, Pa & Lateral RAD 08/20/16 Taken 18:16 Iv Lock (Ed Only) EDM 08/20/16 Transmitted 18:16 Aspirin (Asa) PHA 08/20/16 Complete 18:30 Nitroglycerin PHA 08/20/16 In Process (Nitrostat) 18:30 Normal Saline (Ns) PHA 08/20/16 In Process 19:00 Place In Facility As: ADMIT 08/20/16 Transmitted 20:14 Place In Facility As: ADMIT 08/20/16 Transmitted 20:16 Ambulate SAI 08/20/16 In Process 20:16 Activity As Tolerated SAI 08/20/16 In Process 20:16 Telemetry SAI 08/20/16 In Process 20:16 Manage Oxygen SAI 08/20/16 In Process Administration 20:16 Regular Diet DIET 08/21/16 Transmitted Breakfast Normal Saline (Normal PHA 08/20/16 Logged Saline Iv) 20:16 Hydrocodone/Acetaminophen PHA 08/20/16 Logged ([place] 5/325) 20:30 Hydromorphone PHA 08/20/16 Logged (Dilaudid) 20:30 Ondansetron Inj PHA 08/20/16 Logged (Zofran) 20:30 Cbc W/Auto LAB 08/21/16 Verified Diff-Reflex Manual 04:00 Bmp - Basic Metabolic LAB 08/21/16 Verified Panel 04:00 Measure Vital Signs SAI 08/20/16 In Process 20:16 Oxygen, Continuous RT 08/20/16 Logged 20:16 Lisinopril (Prinivil) PHA 08/21/16 Logged 09:00 Pantoprazole PHA 08/20/16 Logged (Protonix) 21:00 Propranolol La PHA 08/20/16 Logged (Inderal La) 21:00 (Nf) Aspirin PHA 08/21/16 Pending 09:00 Troponin I W LAB 08/21/16 Verified Hemolysis Index 05:00 Troponin I W LAB 08/21/16 Verified Hemolysis Index 01:00 Lab Results Laboratory Tests Test 08/20/16 18:13 White Blood Count 9.0T/MM3 Red Blood Count 5.39M/MM3 Hemoglobin 15.9GM/DL Hematocrit 47.1% Mean Corpuscular Volume 87.4UM3 Mean Corpuscular Hemoglobin 29.5UUG Mean Corpuscular Hemoglobin Concent 33.8GM/DL RDW Standard Deviation 44.4FL Platelet Count 205T/MM3 Mean Platelet Volume 11.3UM3 Immature Granulocyte % (Auto) 0.2% Neutrophils (%) (Auto) 60.1% Lymphocytes (%) (Auto) 28.1% Monocytes (%) (Auto) 6.0% Eosinophils (%) (Auto) 4.9% Basophils (%) (Auto) 0.7% Absolute Immature Granulocyte (auto 0.02T/MM3 Absolute Neutrophils (auto) 5.4T/MM3 Absolute Lymphocytes (auto) 2.5T/MM3 Absolute Monocytes (auto) 0.5T/MM3 Absolute Eosinophils (auto) 0.4T/MM3 Absolute Basophils (auto) 0.1T/MM3 Prothromb Time International Ratio 1.07 Activated Partial Thromboplast Time 28.9SEC Turbidity < 20 Sodium Level 149MEQ/L Potassium Level 3.6MEQ/L Chloride Level 108MEQ/L Carbon Dioxide Level 27MEQ/L Anion Gap 14MEQ/L Blood Urea Nitrogen 14.0MG/DL Creatinine 1.0MG/DL Glomerular Filtration Rate Calc 72 BUN/Creatinine Ratio 14RATIO Glucose Level 103MG/DL Calculated Osmolality 287MOSM/KG Calcium Level 9.5MG/DL Total Bilirubin 1.40MG/DL Icterus Index < 2 Aspartate Amino Transf (AST/SGOT) 23U/L Alanine Aminotransferase (ALT/SGPT) 35U/L Alkaline Phosphatase 63U/L Troponin I 0.013ng/ml MM-Suo-U-Type Natriuretic Peptide 470PG/ML Total Protein 7.6G/DL Albumin 4.3G/DL Globulin 3.3G/DL Albumin/Globulin Ratio 1.3RATIO Chemistry Specimen Hemolysis < 15 Medications Current ED Medications Aspirin (ASA) 324 mg O ONCE PO Last administered on 08/20/16 17:48; Start 08/20 at 18:30; Stop 08/20/16 at 18:31; Status DC Nitroglycerin 0.4 mg 0.4 mg Q5MIN PRN SL CHEST PAIN Last administered on 18:32; Start 08/20/16 at 18:30 Sodium Chloride (NS) 500 ml @ 0 mls/hr Q0M IV Last administered on 08/20/16 18: 49; Start 08/20/16 at 19:00 Progress Progress Patient had complete resolution of chest pain after 2 nitro. CBC unremarkable, CMP normal except for NA 149 and total bilirubin 1.40. Troponin 0.013 ProBNP [address] elevation CXR normal Patient has remained chest pain free since nitro was given. I discussed conversation I had with Dr. Raines with patient and his family. Patient agrees to admission observation for r/o. EKG EKG : Rate: <60 Rhythm: sinus QRS: normal Intervals: normal ST/T: normal Interpreted by: signing physician (Dr. Gudino) Consult/PCP Consult/PCP #1: Time Called: 19:49 Type of discussion: Phone Consult/PCP Discussion Details I discussed patient's HPI, PMH, labs, EKG, VS, CXR, exam findings, treatment in the ED with Dr. 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 Dr. Raines said that patient could be admitted for R/O for FL under hospitalist service and then follow with him in clinic. If patient does not want to stay he will follow in clinic (low suspicion for concern since patient had negative cath October of 2014). Consult/PCP #2: Time Called: 20:05 Type of discussion: Admit Discussion/PCP Discussion Details discussed patient's HPI, PMH, labs, EKG, VS, CXR, exam findings, treatment in the ED and conversation I had with Dr. Adilson Raines with Dr. Shepherd. Dr. Shepherd will admit outpatient. Xray Xray : Xray: CXR PA/Lat Interpretation: Normal (no acute cardiopulmonary findings (Dr. Gudino)) RAUL LEÓN APRN Aug 20, 2016 18:00
--- OUTSIDE RECORDS SUMMARY | 2016-08-20 18:05 | XMS REPORT | Continuity of Care Document ---
Author Author [facility] Organization [facility] Address Unknown Phone Unavailable Support Name Relationship Address Phone TORIE NASH MD Caregiver [address] [place] [phone] HEBER FRENCH MD Caregiver [facility] [address] [facility] [address] [place] [address] SNEHAL DIETZ Next Of Kin [address] [id number] Insurance Providers Payer Name Policy Number Subscriber Name Relationship Medicare [id number] Dion Dietz 18 Self Blue Cross Select Plan 65 [id number] Dion Dietz 18 Self Advance Directives Directive [...] F (96.8 - 99.1) Temperature (Calculated Celsius) 36.01125 degrees C (36.0 - 37.3) Temperature Source [...] 14, 2014 12:05pm LAB TEST FORM REQUEST [id number] - Lymphocytes # (Auto) May 02, 2014 [...] - Urine Color February 14, 2014 11:15am [place] - Urine Culture Indicated February 14, 2014 [...] 2014 11:15am 1-3 /HPF - Urine Specific [place] February 14, 2014 11:15am 1.025 - Urine [...] Enterobacter Aerogenes Name: DION DIETZ Unit #: [id number] : 1935 Sex: M Loc / Svc: [facility] DOS: 02/14/14 Signed Report #: [id number] DIAGNOSTIC IMAGING REPORT TYPE OF EXAM: US [...] NASH MD Encounters Encounter Location Date/Time Registered [facility] 02/14/14 11:52am Registered [facility] 02/14/14 11:37am
--- OUTSIDE RECORDS SUMMARY | 2016-08-20 18:06 | XMS REPORT | Continuity of Care Document ---
Author Author [facility] Organization [facility] Address Unknown Phone Unavailable Allergies Medications Problems Date Dx Coded Attending Type Code Diagnosis Diagnosed By 10/11/2012 Gilberto Gooden MD 416.8 [facility] PULMON HEART DIS NEC 10/11/2012 Gilberto Gooden MD 416.8 [facility] PULMON HEART DIS NEC 10/11/2012 Gilberto Gooden MD 416.8 [facility] PULMON HEART DIS NEC Procedures Results Test Result Range BLOOD UREA NITROGEN - 10/11/12 12:39 BLOOD UREA NITROGEN 17 mg/dL 7-20 CREATININE - 10/11/12 12:39 CREATININE 1.1 mg/dL 0.8-1.3 Encounters ACCT No. Visit Date/Time Discharge Status Pt. Type Provider Facility Loc./Unit Complaint [id number] 10/11/2012 12:19:00 2012 12:19:00 DIS Outpatient Giacomo HUSTON, Gilberto [facility] W.LAB
[2016-08-20 18:17] LABS: ALBUMIN 4.3 G/DL (3.5-5.0); ALBUMIN/GLOBULIN RATIO 1.3 RATIO (1.1-2.2); ALKALINE PHOSPHATASE 63 U/L (38-126); ALT (SGPT) 35 U/L (21-72); ANION GAP 14 MEQ/L (5-15); AST (SGOT) 23 U/L (17-59); BUN/CREATININE RATIO 14 RATIO (6-26); CALCIUM 9.5 MG/DL (8.4-10.2); CHLORIDE 108 MEQ/L (98-107); CO2 - CARBON DIOXIDE 27 MEQ/L (22-30); GLOMERULAR FILTRATION RATE 72; GLUCOSE 103 MG/DL (75-110); POTASSIUM 3.6 MEQ/L (3.6-5); PROBNP 470 PG/ML (0-175); SODIUM 149 MEQ/L (134-144); TOTAL PROTEIN 7.6 G/DL (6.3-8.2)
[2016-08-20 18:19] LABS: BASOPHILS # (AUTO) 0.1 T/MM3 (0-0.2); BASOPHILS % (AUTO) 0.7 % (0-2); EOSINOPHILS # (AUTO) 0.4 T/MM3 (0-0.5); EOSINOPHILS % (AUTO) 4.9 % (0-4); HCT - HEMATOCRIT 47.1 % (41-53); HGB - HEMOGLOBIN 15.9 GM/DL (13.5-17.5); IMMATURE GRANULOCYTE # (AUTO) 0.02 T/MM3 (0.00-0.03); IMMATURE GRANULOCYTE % (AUTO) 0.2 % (0.0-0.5); LYMPHOCYTES # (AUTO) 2.5 T/MM3 (1-4.8); LYMPHOCYTES % (AUTO) 28.1 % (23-45); MEAN CORPUSCULAR HGB 29.5 UUG (26-34); MEAN CORPUSCULAR HGB CONC(MCHC 33.8 GM/DL (31-37); MEAN CORPUSCULAR VOLUME 87.4 UM3 (80-100); MEAN PLATELET VOLUME 11.3 UM3 (9.4-12.4); MONOCYTES # (AUTO) 0.5 T/MM3 (0-0.8); NEUTROPHILS #(AUTO)-ABSOLUTE 5.4 T/MM3 (1.8-7.7); NEUTROPHILS % (AUTO) 60.1 % (33-66); RED BLOOD COUNT 5.39 M/MM3 (4.50-5.90)
[2016-08-20 18:24] LABS: INR 1.07 (0.76-1.04); PROTHROMBIN TIME 11.7 SEC (9.31-12.49); PTT 28.9 SEC (24-36)
[2016-08-20] MEDS: NITROGLYCERIN 0.4 MG SUBLINGUAL TABLET SL PRN ×2 (18:24→18:32)
[2016-08-20] MEDS ORDERED: ASPIRIN 81 MG CHEWABLE TABLET PO ONE (18:30)
--- NOTE | 2016-08-20 18:33 | NUR ---
TO XRAY PER W/C.
--- NOTE | 2016-08-20 18:41 | NUR ---
BACK FROM XRAY
--- NOTE | 2016-08-20 18:45 | NUR ---
STATUS RATES PAIN 0/10. STATED, "IT IS GONE".
[2016-08-20] MEDS ORDERED: NORMAL SALINE 500 ML IV SCH (19:00)
--- NOTE | 2016-08-20 19:52 | NUR ---
PROVIDER Shelli LEÓN FINGERER IN TO SEE PATIENT.
[2016-08-20] MEDS ORDERED: ONDANSETRON 4mg/2ml INJECTION IV PRN (20:30)
[2016-08-20] MEDS ORDERED: HYDROCODONE/APAP 5 mg/325 mg TABLET PO PRN (20:30)
[2016-08-20] MEDS ORDERED: HYDROMORPHONE 2mg/ml INJECTION IV PRN (20:30)
--- OUTSIDE RECORDS SUMMARY | 2016-08-20 20:30 | XMS REPORT | Continuity of Care Document ---
Author Author [facility] Organization [facility]IVE Address Unknown Phone Unavailable Support Name Relationship Address Phone TORIE NASH MD Caregiver [id number] [place] [address] [phone] HEBER FRENCH MD Caregiver [facility] [address] [facility] [address] [place] [address] SNEHAL DIETZ Next Of Kin [phone] [id number] Insurance Providers Payer Name Policy Number Subscriber Name Relationship Medicare [id number] Dion Dietz 20 Self Blue Cross Select Plan 65 [id number] Dion Dietz 20 Self Advance Directives Directive [...] F (96.8 - 99.1) Temperature (Calculated Celsius) 36.19024 degrees C (36.0 - 37.3) Temperature Source [...] 14, 2014 12:05pm LAB TEST FORM REQUEST [id number] - Lymphocytes # (Auto) May 02, 2014 [...] - Urine Color February 14, 2014 11:15am [place] - Urine Culture Indicated February 14, 2014 [...] 2014 11:15am 1-3 /HPF - Urine Specific [place] February 14, 2014 11:15am 1.025 - Urine [...] Enterobacter Aerogenes Name: DION DIETZ Unit #: [id number] : 1935 Sex: M Loc / Svc: [facility] DOS: 02/14/14 Signed Report #: [id number] DIAGNOSTIC IMAGING REPORT TYPE OF EXAM: US [...] NASH MD Encounters Encounter Location Date/Time Registered [facility] 02/14/14 11:52am Registered [facility] 02/14/14 11:37am
--- OUTSIDE RECORDS SUMMARY | 2016-08-20 20:32 | XMS REPORT | Continuity of Care Document ---
Author Author [facility] Organization [facility] Address Unknown Phone Unavailable Allergies Medications Problems Date Dx Coded Attending Type Code Diagnosis Diagnosed By 10/11/2012 Gilberto Gooden MD 416.8 [facility] PULMON HEART DIS NEC 10/11/2012 Gilberto Gooden MD 416.8 [facility] PULMON HEART DIS NEC 10/11/2012 Gilberto Gooden MD 416.8 [facility] PULMON HEART DIS NEC Procedures Results Test Result Range BLOOD UREA NITROGEN - 10/11/12 12:39 BLOOD UREA NITROGEN 17 mg/dL 7-20 CREATININE - 10/11/12 12:39 CREATININE 1.1 mg/dL 0.8-1.3 Encounters ACCT No. Visit Date/Time Discharge Status Pt. Type Provider Facility Loc./Unit Complaint [id number] 10/11/2012 12:19:00 2012 12:19:00 DIS Outpatient Giacomo HUSTON, Gilberto [facility] W.LAB
--- NOTE | 2016-08-20 20:33 | NUR ---
REPORT GIVEN TO SNEHAL VAZQUEZ. NO QUESTIONS NOTED.
[2016-08-20 20:44] VITALS: Ht 182.9 cm; Wt 130.1 kg
--- NOTE | 2016-08-20 20:45 | NUR ---
ADMIT TO ROOM 148 PER CART. ABLE TO TRANSFER WITH ASSIST OF 1, STANDBY.
[2016-08-20 20:48] VITALS: BP 159/79; PULSE 51; RESP 18; TEMP 96; O2SAT 97
[2016-08-20] MEDS: PROPRANOLOL LA 120 MG CAPSULE PO SCH (21:00)
[2016-08-20] MEDS ORDERED: PANTOPRAZOLE 40 MG TABLET PO SCH (21:00)
[2016-08-20 21:31] VITALS: PULSE 51; RESP 18
[2016-08-20] MEDS: NORMAL SALINE 1,000 ML IV SCH (22:00)
--- NOTE | 2016-08-20 22:56 | HPPDOC ---
HPI - Adult Date DATE: 08/20/16 TIME: 23:27 General Chief Complaint: chest pain History of Present Illness This is a 80-year-old male that has been working outside today. Patient had onset chest pressure discomfort nonradiating. The symptoms persisted and the patient was concerned about the severity of the pain. The patient presents to the emergency department or a cardiac workup was unrevealing. The patient had a previous heart catheterization 2 years ago that showed no occlusive disease. The patient has been followed by cardiology in the past. The ER physician did discuss the patient with android programmer on-call. Mine Safety Manager felt that with a normal heart catheter, normal workup in the emergency department, that the patient did not be acute cardiac evaluation. The family was concerned about the possibility of occult disease, and as such patient is admitted for observation and rule out. Past Medical History Past Medical History barretts esophagus morbid obesity HTN cluster LEWIS allergie Surgical History Patient's Surgical History: cholecystectomy appendectomy bilateral total knee lumbar back surgery Current Medications Home Meds Reported Medications Fexofenadine HCl (Rowan Allergy) 60 Mg Tablet, 60 MG PO QOD, TAB Do not drink Apple, [place], or Grapefruit juice within 4 hours of this medication, causes decreased absorption 08/20/16 Fexofenadine HCl (Rowan Allergy) 180 Mg Tablet, 180 MG PO DAILY 08/20/16 Pantoprazole Sodium (Pantoprazole Sodium) 40 Mg Tablet.dr, 40 MG PO BID 11/30/15 Propranolol HCl (Propranolol HCl) 120 Mg Cap.sa.24h, 120 MG PO BID, CAP 10/17/14 Naproxen Sodium (Aleve) 220 Mg Tablet, 220 MG PO PRN Y for PAIN 05/01/14 Lisinopril/Hydrochlorothiazide (Lisinopril-Hctz 20-25 mg Tab) 1 Each Tablet, 1 TAB PO DAILY 05/01/14 Lisinopril (Lisinopril) 20 Mg Tablet, 20 MG PO DAILY 05/01/14 Aspirin (Aspirin) 81 Mg Tablet, 81 MG PO DAILY 08/11/08 Allergies: Coded Allergies: No Known Drug Allergies (Verified Allergy, Unknown, 08/20/16) Family History Family History: non contributory Social History Sexuality: female partner Advance Directives: Yes DPOA for Healthcare Only (AT HOME (PAPERWORK)) Social History Comments 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 The patients symptoms were relieved with nitroglycerin in the emergency department. The patients symptoms did not radiate to shoulder neck or jaw. The patient does not describe any previous symptoms like this. The patient denies any abdominal pain, no nausea or vomiting, no change in bowel movements, no blood in his stools, patient has noted increased swelling in his legs. No focal neurological complaints. A 10 point review of systems is otherwise negative except outlined above. Patients exercise tolerance is unchanged. No PND, no orthopnea Physical Exam General General Nourishment: well nourished, well developed, obese, adult Vital Signs Vital Signs Date Time Temp Pulse Resp B/P Pulse Ox O2 Delivery O2 Flow Rate FiO2 08/20/16 21:31 51 18 08/20/16 20:48 96.0 159/79 97 Room Air Height (Feet): 6 Height (Inches): 0.00 Telemetry Rhythm: Sinus Rhythm Eyes Brief: FOUND: EOMI Neck Brief: FOUND: midline, NOT FOUND: JVD, nuchal rigidity, other, spasm, tenderness, tracheal deviation Respiratory Brief: FOUND: clear all wells, equal bilaterally, NOT FOUND: other , rales, spasm, symmetrical, tenderness, wheezes Cardiovascular (brief) Cardiac Brief: FOUND: regular rate, regular rhythm, NOT FOUND: click, gallop, murmur, other, pedal edema, peripheral edema, rub Capillary Refill: <2 sec Abdomen (brief) Abdominal Brief: FOUND: BS normo active x4, pulsatile mass, soft, NOT FOUND: distended, other, tender Musculoskeletal (brief) Musculoskeletal Brief: FOUND: extremities move equally, NOT FOUND: deformity, loss of motion, other, spasm, tenderness Integumentary (brief) Integumentary Brief: FOUND: dry, pink, warm Neurologic (brief) Comments no focal deficit Neurologic RN Documented GCS Eye Opening: Verbal: Motor: Total: Psychiatric (brief) FOUND: alert, normal affect, oriented Laboratory Laboratory Tests Test 3/8/17 18:13 White Blood Count 9.0T/MM3 Red Blood Count 5.39M/MM3 Hemoglobin 15.9GM/DL Hematocrit 47.1% Mean Corpuscular Volume 87.4UM3 Mean Corpuscular Hemoglobin 29.5UUG Mean Corpuscular Hemoglobin Concent 33.8GM/DL RDW Standard Deviation 44.4FL Platelet Count 205T/MM3 Mean Platelet Volume 11.3UM3 Immature Granulocyte % (Auto) 0.2% Neutrophils (%) (Auto) 60.1% Lymphocytes (%) (Auto) 28.1% Monocytes (%) (Auto) 6.0% Eosinophils (%) (Auto) 4.9% Basophils (%) (Auto) 0.7% Absolute Immature Granulocyte (auto 0.02T/MM3 Absolute Neutrophils (auto) 5.4T/MM3 Absolute Lymphocytes (auto) 2.5T/MM3 Absolute Monocytes (auto) 0.5T/MM3 Absolute Eosinophils (auto) 0.4T/MM3 Absolute Basophils (auto) 0.1T/MM3 Prothromb Time International Ratio 1.07 Activated Partial Thromboplast Time 28.9SEC Turbidity < 20 Sodium Level 149MEQ/L Potassium Level 3.6MEQ/L Chloride Level 108MEQ/L Carbon Dioxide Level 27MEQ/L Anion Gap 14MEQ/L Blood Urea Nitrogen 14.0MG/DL Creatinine 1.0MG/DL Glomerular Filtration Rate Calc 72 BUN/Creatinine Ratio 14RATIO Glucose Level 103MG/DL Calculated Osmolality 287MOSM/KG Calcium Level 9.5MG/DL Total Bilirubin 1.40MG/DL Icterus Index < 2 Aspartate Amino Transf (AST/SGOT) 23U/L Alanine Aminotransferase (ALT/SGPT) 35U/L Alkaline Phosphatase 63U/L Troponin I 0.013ng/ml [id number] Natriuretic Peptide 470PG/ML Total Protein 7.6G/DL Albumin 4.3G/DL Globulin 3.3G/DL Albumin/Globulin Ratio 1.3RATIO Chemistry Specimen Hemolysis < 15 Radiology CXR no acute process EKG: non ischemic Assessment & Plan Assessment 1. Chest pain acute present on admission: At this time the patient has had a recent heart catheter which is reassuring. Cardiology was contacted by the ER, no recommended interventions. Well admit to a observation bed with telemetry monitoring. Serial cardiac markers. Make further recommendations by morning. Differential diagnosis includes gastroesophageal reflux disease, possible skeletal, pleurisy, unlikely unstable angina 2. History of Barretts esophagus chronic present on admission: Is quite possible that the patient has had worsening of his esophagus symptoms. The patient most recently was placed on steroids for URI symptoms. It is possible this is exacerbated his GI complaints. This has resulted in chest pain. Well continue proton pump inhibitor 3. Hypertension chronic present on admission: Well continue HANSEL inhibitor 4. DVT prophylaxis: SCD Observation admission Code Status Full Code, unverified Hospital Course Summary Disclaimer The hospital course summary below is not to be considered part of the above Progress Note. HEYDI MOHAMUD MD Aug 20, 2016 22:49
--- NOTE | 2016-08-20 23:10 | NUR ---
LOW HEART RATE: REC'D CALL FROM TELE SAYING PT'S HRT WAS RUNNING THE IN THE UPPER 40'S (47-48). SENT TIGER TEXT, REC'D CALL BACK FROM DR. MOHAMUD. HE SAID TO WITHHOLD INDERAL AND TO LET HIM KNOW IF PT'S HRT DROPS LOWER OR IF PT BECOMES SYMPTOMATIC. INDERAL WITHHELD, PT NOT SYMPTOMATIC, RESTING, WATCHING TV. WILL CONTINUE TO MONITOR.
[2016-08-21] VITALS (17 sets, daily range): BP systolic 129–195; BP diastolic 66–82; PULSE 42–52; RESP 9–27; TEMP 95.7–96.8; O2SAT 93–98
--- NOTE | 2016-08-21 02:28 | NUR ---
LOW HEART RATE: SENT TIGER TEXT REGARDING LOW HEART RATE; TELEMETRY CALLED TO STATE PT IS RUNNING A [place]ACH. CHECKED PT, PT IS NOT SYMPTOMATIC (NO PAIN OR SOA). REC'D CALL BACK FROM DR. MCGOWAN. HE ORDERED AN EKG AND DR. LEONG'S OFFICE TO BE CONSULTED AND TO READ THE EKG. I CONTACTED SALO'S OFFICE AND SPOKE WITH DARLENE TO GIVE A HEAD'S UP ON THE EKG AND THE PT'S STATUS. WILL CONTINUE TO MONITOR.
--- NOTE | 2016-08-21 04:56 | NUR ---
HEART: SENT TIGER TEXT REGARDING PT'S RECENT TELEMETRY READING, INVERTED P AND T WAVES IN V1. REC'D CALL BACK FROM DR. MCGOWAN. WILL CONTINUE TO MONITOR.
--- NOTE | 2016-08-21 05:03 | NUR ---
SHIFT SUMMARY: PT IS A&OX3, VERY FRIENDLY AND COOPERATIVE, DENIES SOA OR PAIN. PT'S , SON-IN-LAW AND GRANDDAUGHTER CAME WITH PT TO HIS ROOM, ONLY REMAINED FOR A FEW HOURS, THEN WENT HOME FOR THE NIGHT. PT IS UP WITH ONE STANDBY ASSIST TO THE BATHROOM. PT SLEEPS WITH C-PAP THAT HE BROUGHT IN FROM HOME. PT'S HEART RATE HAS BEEN LOW DURING THE NIGHT AND CONSTANT COMMUNICATION WITH THE TELEHOSPITALIST HAS TAKEN PLACE (SEE PREVIOUS NURSE NOTES). CALL LIGHT WITHIN REACH, BED ALARM ON, FREQUENT ROUNDING.
[2016-08-21 05:39] LABS: BASOPHILS % (AUTO) 0.6 % (0-2); EOSINOPHILS # (AUTO) 0.5 T/MM3 (0-0.5); EOSINOPHILS % (AUTO) 7.9 % (0-4); HCT - HEMATOCRIT 42.3 % (41-53); HGB - HEMOGLOBIN 14.3 GM/DL (13.5-17.5); IMMATURE GRANULOCYTE # (AUTO) 0.01 T/MM3 (0.00-0.03); IMMATURE GRANULOCYTE % (AUTO) 0.2 % (0.0-0.5); LYMPHOCYTES # (AUTO) 2.3 T/MM3 (1-4.8); LYMPHOCYTES % (AUTO) 36.3 % (23-45); MEAN CORPUSCULAR HGB CONC(MCHC 33.8 GM/DL (31-37); MEAN CORPUSCULAR VOLUME 88.7 UM3 (80-100); MONOCYTES # (AUTO) 0.5 T/MM3 (0-0.8); MONOCYTES % (AUTO) 8.5 % (0-9.0); NEUTROPHILS #(AUTO)-ABSOLUTE 2.9 T/MM3 (1.8-7.7); NEUTROPHILS % (AUTO) 46.5 % (33-66); RED BLOOD COUNT 4.77 M/MM3 (4.50-5.90); WBC - WHITE BLOOD COUNT 6.3 T/MM3 (4.5-11.0)
[2016-08-21 05:51] LABS: ANION GAP 10 MEQ/L (5-15); BUN/CREATININE RATIO 15 RATIO (6-26); CALCIUM 8.6 MG/DL (8.4-10.2); CHLORIDE 106 MEQ/L (98-107); CO2 - CARBON DIOXIDE 27 MEQ/L (22-30); GLOMERULAR FILTRATION RATE 72; GLUCOSE 123 MG/DL (75-110); POTASSIUM 3.2 MEQ/L (3.6-5); SODIUM 143 MEQ/L (134-144)
--- NOTE | 2016-08-21 07:23 | NUR ---
AMBULATING: PT AMBULATED TO THE BATHROOM DURING THE NIGHT TO RELIEVE HIMSELF. WHEN PT'S HRT STARTED DROPPING IN THE 40's AND 30'S, I STRONGLY DISCOURAGED PT FROM DOING SO AND OFFERED PT A URINAL, PT REFUSED TO USE THE URINAL. THE LAST TIME HE AMBULATED TO THE BATHROOM THIS MORNING BEFORE 6:00 AM, PT WAS VISIBLY OUT OF BREATH, THIS WAS NEW IN MY OBSERVATION OF THE PT. I ASKED HIM IF HE GETS SOA, PT SAID "OH, ITS PROBABLY MY ALLERGIES." I PASSED THIS INFORMATION AND THE LOW HEART RATE INFORMATION ON TO DAY SHIFT.
--- NOTE | 2016-08-21 08:08 | DI ---
INDICATION: ITS.REASON: cough and chest pain PROCEDURE: CHEST 2-VIEWS UPRIGHT (PA \T\ LAT) Encounter: Initial Comparison: October 14, 2014 Findings: The lungs are stable in appearance without new focal airspace consolidation. Hyperinflation. There is no pleural effusion or pneumothorax. The heart size, pulmonary vascularity and mediastinal contours are unchanged. IMPRESSION: Stable appearance of the chest without acute cardiopulmonary disease. .
[2016-08-21] MEDS: PROPRANOLOL LA 120 MG CAPSULE PO SCH (08:38)
[2016-08-21] MEDS: NORMAL SALINE 1,000 ML IV SCH ×2 (08:42→16:16)
--- NOTE | 2016-08-21 08:53 | NUR ---
med Dr Banks call for report on pt, gave. Reported morning dose of hrt meds given this am and hrt 53-60, SBP hard to read top number. N.O. to stop propranolol for rest of day.
[2016-08-21] MEDS ORDERED: LISINOPRIL 20 MG TABLET PO SCH (09:00)
[2016-08-21] MEDS ORDERED: ASPIRIN *EC* 81mg TABLET PO SCH (09:00)
--- NOTE | 2016-08-21 11:36 | NUR ---
CM CM IN TO VISIT PATIENT, HE IS A&O. IS PRESENT AT THE BEDSIDE. HE PLANS TO DISCHARGE HOME, DENIES ANY DISCHARGE NEEDS. CM CONTACT INFORMATION PROVIDED. Addendum: 08/21/16 at 1136 by LUDWIG HDZ RN Amended: Links added.
[2016-08-21] MEDS ORDERED: PNEUMOCOCCAL 13 VACCINE 0.5 ML SYRINGE IM ONE (13:15)
[2016-08-21] MEDS ORDERED: PNEUMOCOCCAL VAC. ADMIN. CHARGE INJ ONE (13:24)
[2016-08-21] MEDS ORDERED: LIDOCAINE 1% (10mg/ml) 30ml SDV ONE ×2 (13:27→13:29)
[2016-08-21] MEDS ORDERED: HEPARIN 1,000units in NS 500ml BAG IV ONE (13:27)
[2016-08-21] MEDS ORDERED: MIDAZOLAM 2mg/2ml INJECTION ONE (14:22)
[2016-08-21] MEDS ORDERED: FENTANYL 100mcg/2ml INJECTION ONE (14:22)
[2016-08-21] MEDS ORDERED: POTASSIUM CHLORIDE 10 MEQ TABLET PO ONE ×2 (14:29→14:30)
--- NOTE | 2016-08-21 14:29 | CONSPD ---
FAITH PILLAI RAILROAD DETECTIVE 08/21/16 1124: Consultation Info Date DATE: 08/21/16 TIME: 11:20 Date of Consultation: Aug 21, 2016 Attending Physician: Mason Banks MD Reason for Consultation: chest pain HPI - Adult Date DATE: 08/21/16 TIME: 11:20 General Date of Admission Date of Admission: Aug 20, 2016 at 20:15 Chief Complaint: chest pain History of Present Illness Darvin is a 80-year-old male patient of Dr. Juan Raines who was working outside [employer] most of yesterday and at 5:00pm had mid sternal chest pain which was nonradiating. He reports some nausea but attributed this to not eating any food since breakfast. The pain persisted after stopping work and he was concerned about the severity of the pain. He presented to the ED for a cardiac workup which was unrevealing. He had a previous heart catheterization 2 years ago that showed a few scattered irregular plaques with no occlusive disease. He and his family was concerned about the possibility of occult disease, and as such patient is admitted for observation and rule out. Dr. Santizo is consulted by Dr. Banks the patient's PCP. He is examined in his room, denies having any further chest pain, palpitations, dyspnea, nausea or diaphoresis. He reports his cholesterol is "low." Past Medical History Past Medical History Metabolic: hypertension, DENIES: diabetes Cardiac: angina Respiratory: DENIES: COPD, asthma GI: other (Gross's esophagus), DENIES: ulcers Male: DENIES: renal insufficiency Neurological: headaches Musculoskeletal: back pain, osteoarthritis Surgical History General: appendix, back, gallbladder, hernia Cardiac: cardiac cath Reproductive/: TURP Joint: knee Current Medications Home Meds Reported Medications Fexofenadine HCl (Rowan Allergy) 60 Mg Tablet, 60 MG PO QOD, TAB Do not drink Apple, Boston, or Grapefruit juice within 4 hours of this medication, causes decreased absorption 08/20/16 Fexofenadine HCl (Rowan Allergy) 180 Mg Tablet, 180 MG PO DAILY 08/20/16 Pantoprazole Sodium (Pantoprazole Sodium) 40 Mg Tablet.dr, 40 MG PO BID 11/30/15 Propranolol HCl (Propranolol HCl) 120 Mg Cap.sa.24h, 60 MG PO BID, CAP PT TO BEGIN TAKING 60MG BY MOUTH TWICE A DAY ON 08/22/16. WILL DISCUSS IN OFFICE 08/25/16 10/17/14 Naproxen Sodium (Aleve) 220 Mg Tablet, 220 MG PO PRN Y for PAIN 05/01/14 Lisinopril/Hydrochlorothiazide (Lisinopril-Hctz 20-25 mg Tab) 1 Each Tablet, 1 TAB PO DAILY 05/01/14 Lisinopril (Lisinopril) 20 Mg Tablet, 20 MG PO DAILY 05/01/14 Aspirin (Aspirin) 81 Mg Tablet, 81 MG PO DAILY 08/11/08 Allergies: Coded Allergies: No Known Drug Allergies (Verified Allergy, Unknown, 08/20/16) Family History FOUND: CVA, hypertension Vaccines 201411/30/15 UNKNOWN Social History Smoking Status: Unknown if ever smoked Marital Status: Sexuality: female partner Housing: house Advance Directives: Yes DPOA for Healthcare Only (AT HOME (PAPERWORK)) Review of Systems Constitutional: REPORTS: dizziness (at times), DENIES: chills, fever, weakness Eyes General: DENIES: pain Vision: DENIES: double vision ENMT Balance: DENIES: vertigo Sinuses: FOUND: congestion (recent resp. illness), NOT FOUND: rhinorrhea Mouth/Throat: DENIES: sore throat Cardiovascular chest pain, dyspnea on exertion Rhythm/Rate: bradycardia (reports due to Betablocker), DENIES: irregular beat, palpitations Pulmonary Respiratory: cough (everyday, due to allergies and drainage from allergy medicine), sputum (clear) GI Upper Abdomen: nausea (with chest pain, he atributed this to he hadn't eaten since breakfast), DENIES: vomiting Lower Abdomen: DENIES: blood in stool, diarrhea General: DENIES: dysuria Integumentary Skin: DENIES: rash, sores Neurological General: DENIES: headache, numbness, seizures, syncope, weakness All Other Systems All Other Systems: Reviewed (remainder of 10-point ROS Neg.) Physical Exam General General Nourishment: well nourished, well developed, obese, apparent age Vital Signs Vital Signs Date Time Temp Pulse Resp B/P Pulse Ox O2 Delivery O2 Flow Rate FiO2 08/21/16 08:00 96.8 52 16 129/82 95 Room Air Height (Feet): 6 Height (Inches): 0.00 Telemetry Rhythm: Sinus Rhythm ENMT Brief: FOUND: mucosa moist Neck Brief: NOT FOUND: JVD, carotid bruits Respiratory Brief: FOUND: clear all wells, equal bilaterally, NOT FOUND: rales , wheezes Cardiovascular (brief) Cardiac Brief: FOUND: pedal edema, regular rate, regular rhythm, NOT FOUND: click, gallop, murmur Abdomen (brief) Abdominal Brief: FOUND: BS normo active x4, soft, NOT FOUND: tender Integumentary (brief) Integumentary Brief: FOUND: dry, pink, warm Neurologic RN Documented GCS Eye Opening: Verbal: Motor: Total: Psychiatric (brief) FOUND: alert, attentive, oriented Laboratory Laboratory Tests Test 08/20/16 18:13 08/21/16 00:55 08/21/16 05:12 White Blood Count 9.0T/MM3 6.3T/MM3 Red Blood Count 5.39M/MM3 4.77M/MM3 Hemoglobin 15.9GM/DL 14.3GM/DL Hematocrit 47.1% 42.3% Mean Corpuscular Volume 87.4UM3 88.7UM3 Mean Corpuscular Hemoglobin 29.5UUG 30.0UUG Mean Corpuscular Hemoglobin Concent 33.8GM/DL 33.8GM/DL RDW Standard Deviation 44.4FL 44.2FL Platelet Count 205T/MM3 167T/MM3 Mean Platelet Volume 11.3UM3 11.0UM3 Immature Granulocyte % (Auto) 0.2% 0.2% Neutrophils (%) (Auto) 60.1% 46.5% Lymphocytes (%) (Auto) 28.1% 36.3% Monocytes (%) (Auto) 6.0% 8.5% Eosinophils (%) (Auto) 4.9% 7.9% Basophils (%) (Auto) 0.7% 0.6% Absolute Immature Granulocyte (auto 0.02T/MM3 0.01T/MM3 Absolute Neutrophils (auto) 5.4T/MM3 2.9T/MM3 Absolute Lymphocytes (auto) 2.5T/MM3 2.3T/MM3 Absolute Monocytes (auto) 0.5T/MM3 0.5T/MM3 Absolute Eosinophils (auto) 0.4T/MM3 0.5T/MM3 Absolute Basophils (auto) 0.1T/MM3 0.0T/MM3 Prothromb Time International Ratio 1.07 Activated Partial Thromboplast Time 28.9SEC Turbidity < 20 < 20 Sodium Level 149MEQ/L 143MEQ/L Potassium Level 3.6MEQ/L 3.2MEQ/L Chloride Level 108MEQ/L 106MEQ/L Carbon Dioxide Level 27MEQ/L 27MEQ/L Anion Gap 14MEQ/L 10MEQ/L Blood Urea Nitrogen 14.0MG/DL 15.0MG/DL Creatinine 1.0MG/DL 1.0MG/DL Glomerular Filtration Rate Calc 72 72 BUN/Creatinine Ratio 14RATIO 15RATIO Glucose Level 103MG/DL 123MG/DL Calculated Osmolality 287MOSM/KG 277MOSM/KG Calcium Level 9.5MG/DL 8.6MG/DL Total Bilirubin 1.40MG/DL Icterus Index < 2 < 2 Aspartate Amino Transf (AST/SGOT) 23U/L Alanine Aminotransferase (ALT/SGPT) 35U/L Alkaline Phosphatase 63U/L Troponin I 0.013ng/ml 0.016ng/ml 0.017ng/ml EB-Wdi-[id number]-Type Natriuretic Peptide 470PG/ML Total Protein 7.6G/DL Albumin 4.3G/DL Globulin 3.3G/DL Albumin/Globulin Ratio 1.3RATIO Chemistry Specimen Hemolysis < 15 < 15 < 15 Laboratory Tests Test 08/20/16 18:13 08/21/16 00:55 08/21/16 05:12 White Blood Count 9.0T/MM3 6.3T/MM3 Red Blood Count 5.39M/MM3 4.77M/MM3 Hemoglobin 15.9GM/DL 14.3GM/DL Hematocrit 47.1% 42.3% Mean Corpuscular Volume 87.4UM3 88.7UM3 Mean Corpuscular Hemoglobin 29.5UUG 30.0UUG Mean Corpuscular Hemoglobin Concent 33.8GM/DL 33.8GM/DL RDW Standard Deviation 44.4FL 44.2FL Platelet Count 205T/MM3 167T/MM3 Mean Platelet Volume 11.3UM3 11.0UM3 Immature Granulocyte % (Auto) 0.2% 0.2% Neutrophils (%) (Auto) 60.1% 46.5% Lymphocytes (%) (Auto) 28.1% 36.3% Monocytes (%) (Auto) 6.0% 8.5% Eosinophils (%) (Auto) 4.9% 7.9% Basophils (%) (Auto) 0.7% 0.6% Absolute Immature Granulocyte (auto 0.02T/MM3 0.01T/MM3 Absolute Neutrophils (auto) 5.4T/MM3 2.9T/MM3 Absolute Lymphocytes (auto) 2.5T/MM3 2.3T/MM3 Absolute Monocytes (auto) 0.5T/MM3 0.5T/MM3 Absolute Eosinophils (auto) 0.4T/MM3 0.5T/MM3 Absolute Basophils (auto) 0.1T/MM3 0.0T/MM3 Prothromb Time International Ratio 1.07 Activated Partial Thromboplast Time 28.9SEC Turbidity < 20 < 20 Sodium Level 149MEQ/L 143MEQ/L Potassium Level 3.6MEQ/L 3.2MEQ/L Chloride Level 108MEQ/L 106MEQ/L Carbon Dioxide Level 27MEQ/L 27MEQ/L Anion Gap 14MEQ/L 10MEQ/L Blood Urea Nitrogen 14.0MG/DL 15.0MG/DL Creatinine 1.0MG/DL 1.0MG/DL Glomerular Filtration Rate Calc 72 72 BUN/Creatinine Ratio 14RATIO 15RATIO Glucose Level 103MG/DL 123MG/DL Calculated Osmolality 287MOSM/KG 277MOSM/KG Calcium Level 9.5MG/DL 8.6MG/DL Total Bilirubin 1.40MG/DL Icterus Index < 2 < 2 Aspartate Amino Transf (AST/SGOT) 23U/L Alanine Aminotransferase (ALT/SGPT) 35U/L Alkaline Phosphatase 63U/L Troponin I 0.013ng/ml 0.016ng/ml 0.017ng/ml [id number]-Type Natriuretic Peptide 470PG/ML Total Protein 7.6G/DL Albumin 4.3G/DL Globulin 3.3G/DL Albumin/Globulin Ratio 1.3RATIO Chemistry Specimen Hemolysis < 15 < 15 < 15 EKG Sinus Bradycardia, 1st degree AV block Radiology DATE OF EXAM: 08/20/16 ORDERING DOCTOR: RAUL LEÓN APRN TYPE OF EXAM: CHEST, PA & LATERAL REASON FOR EXAM: cough and chest pain INDICATION: ITS.REASON: cough and chest pain PROCEDURE: CHEST 2-VIEWS UPRIGHT (PA \\T\\ LAT) Encounter: Initial Comparison: October 14, 2014 Findings: The lungs are stable in appearance without new focal airspace consolidation. Hyperinflation. There is no pleural effusion or pneumothorax. The heart size, pulmonary vascularity and mediastinal contours are unchanged. IMPRESSION: Stable appearance of the chest without acute cardiopulmonary disease. Impression/Recommendation Problems: (1) Chest pain, rule out acute myocardial infarction Status: Acute Assessment & Plan: Sternal chest pain with exertion, responded to Nitro. Serial troponin are all negative. Sinus Bradycardia with 1st Degree AV block on EKG. Last heart cath 10/2014 without occlusive disease. Patient and his were presented with the options of stress test as an outpatient or heart catheterization today; they were explained the risks and benefits of both and together they decided to proceed with heart cath. (2) Bradycardia Status: Chronic Assessment & Plan: Reports his Neurologist Dr. Santa has him on Beta blockers for his headaches and this works well. He knows it causes bradycardia and has tried reduction of dose but was not effective for headache. He reports occasional dizziness but denies syncope (3) HTN (hypertension) Status: Chronic Assessment & Plan: Suboptimal control, takes Lisinopril and Lisinopril/Hctz, as well as Beta giacomo for headache. Recommendation Chest pain: Sternal chest pain with exertion, responded to Nitro. Serial troponin are all negative. Sinus Bradycardia with 1st Degree AV block on EKG. Last heart cath 10/2014 without occlusive disease. Patient and his were presented with the options of stress test as an outpatient or heart catheterization today; they were explained the risks and benefits of both and together they decided to proceed with heart cath. Bradycardia: Reports his Neurologist Dr. Santa has him on Beta blockers for his headaches and this works well. He knows it causes bradycardia and has tried reduction of dose but was not effective for headache. He reports occasional dizziness but denies syncope. HTN: Suboptimal control, takes Lisinopril and Lisinopril/Hctz, as well as Beta giacomo for headache. Thank you for allowing us to participate in the care of this patient. DEANA SANTIZO MD 09/01/16 1027: Past Medical History Current Medications Home Meds Reported Medications Fexofenadine HCl (Rowan Allergy) 60 Mg Tablet, 60 MG PO QOD, TAB Do not drink Apple, [place], or Grapefruit juice within 4 hours of this medication, causes decreased absorption 08/20/16 Fexofenadine HCl (Rwoan Allergy) 180 Mg Tablet, 180 MG PO DAILY 08/20/16 Pantoprazole Sodium (Pantoprazole Sodium) 40 Mg Tablet.dr, 40 MG PO BID 11/30/15 Propranolol HCl (Propranolol HCl) 120 Mg Cap.sa.24h, 60 MG PO BID, CAP PT TO BEGIN TAKING 60MG BY MOUTH TWICE A DAY ON 08/22/16. WILL DISCUSS IN OFFICE 08/25/16 10/17/14 Naproxen Sodium (Aleve) 220 Mg Tablet, 220 MG PO PRN Y for PAIN 05/01/14 Lisinopril/Hydrochlorothiazide (Lisinopril-Hctz 20-25 mg Tab) 1 Each Tablet, 1 TAB PO DAILY 05/01/14 Lisinopril (Lisinopril) 20 Mg Tablet, 20 MG PO DAILY 05/01/14 Aspirin (Aspirin) 81 Mg Tablet, 81 MG PO DAILY 08/11/08 Allergies: Coded Allergies: No Known Drug Allergies (Verified Allergy, Unknown, 08/20/16) Impression/Recommendation Recommendation After examining the patient I agree with the above assessment. I am involved in the formulation of the patient's plan of care. FAITH PILLAI APRN Aug 21, 2016 11:24 DEANA SANTIZO MD Sep 01, 2016 10:27
--- NOTE | 2016-08-21 14:32 | NUR ---
status Pt A/O x3, V/S stable on RA. Pt denies C.P. , no PRN meds given. Pt ambulating well in room, denies dizziness or SOA. Pt remains NPO after breakfast. Dr Gooden in to see, decision to have heart cath. Pt taken down to clinical laboratory aides teacher via cart at 1400.
[2016-08-21] MEDS ORDERED: BISACODYL 10 MG SUPPOSITORY RECTALLY PRN (14:45)
[2016-08-21] MEDS ORDERED: LORAZEPAM 1 MG TABLET PO PRN (14:45)
[2016-08-21] MEDS ORDERED: MILK OF MAGNESIA 30 ML SUSP PO PRN (14:45)
[2016-08-21] MEDS ORDERED: PROMETHAZINE 25 MG INJECTION IV PRN (14:45)
[2016-08-21] MEDS ORDERED: NITROGLYCERIN 0.4 MG SUBLINGUAL TABLET SL PRN (14:45)
[2016-08-21] MEDS ORDERED: BISACODYL 5 MG E.C. TABLET PO PRN (14:45)
[2016-08-21] MEDS ORDERED: LORAZEPAM 2 MG/ML INJECTION IV PRN (14:45)
[2016-08-21] MEDS ORDERED: METOCLOPRAMIDE 10mg/2ml INJECTION IV PRN (14:45)
[2016-08-21] MEDS ORDERED: HYDROCODONE/APAP 5 mg/325 mg TABLET PO PRN (14:45)
[2016-08-21] MEDS ORDERED: MAG-AL + SIM LIQUID 30 ML UDC PO PRN (14:45)
[2016-08-21] MEDS ORDERED: ATROPINE 1 MG/ML VIAL IV PRN (14:45)
[2016-08-21] MEDS ORDERED: ACETAMINOPHEN 325 MG TABLET PO PRN (14:45)
[2016-08-21] MEDS ORDERED: ONDANSETRON 4mg/2ml INJECTION IV PRN (14:45)
[2016-08-21] MEDS ORDERED: MORPHINE SULFATE 4 MG SYRINGE IV PRN ×2 (14:45)
--- NOTE | 2016-08-21 14:54 | NUR ---
ADMIT PT TO ROOM 118 PER CATH CART. TRANSFERRED TO .U. BED WITH ASSIST OF 2 USING SLIDE BOARD. RT GROIN SITE NOTED TO HAVE DRESSING THAT IS D&I. PEDAL PULSES STRONG AND PALPABLE BI-LAT. PT DOZING, AROUSES TO VERBAL STIMULI. AT BEDSIDE.
--- NOTE | 2016-08-21 18:14 | NUR ---
ACTIVITY PT UP TO BR WITH STAND BY ASSIST WELL WALKING IN [place]. NO C/O DISCOMFORT. RT GROIN DRESSING REMAINS D&I AT THIS TIME.
[2016-08-21 18:18] LABS: POTASSIUM 3.4 MEQ/L (3.6-5)
--- NOTE | 2016-08-21 19:31 | CVPROF ---
CARDIAC CATHETERIZATION DATE OF PROCEDURE August 21, 2016 The patient is a pleasant 80-year-old gentleman with coronary artery disease who was admitted with symptoms of unstable angina and was referred for further evaluation by cardiac catheterization and possible intervention. Informed consent was obtained after explaining the procedure and the potential risks to the patient and who agreed to proceed with the procedure. PROCEDURE 1. Left heart catheterization. 2. Coronary angiography. 3. Left ventriculography. 4. Right femoral angiography to visualize the vessel for Mynx deployment. 5. Successful Mynx deployment for hemostasis. TECHNIQUE The patient was prepped and draped in the usual sterile techniques. 1% lidocaine was used for local anesthesia. Using modified Seldinger technique, arterial access was obtained into the right femoral artery with placement of a 6-Kiswahili arterial sheath. Conscious sedation was performed using Versed and fentanyl. LEFT VENTRICULOGRAPHY Left ventriculography in single-plane MG shallow projection showed LV function mildly reduced with ejection fraction of about 45% with no mitral regurgitation or gradient across the aortic valve. LVEDP was about 13. CORONARY ANGIOGRAPHY Left main was free of significant lesions. Left anterior descending artery wrapped around the apex and was diffusely diseased of up to about 30% stenosis. Diagonals were free of significant lesions. Left circumflex artery had a large first marginal which had minor irregularities. Distal to this marginal circumflex was somewhat small with about 50% stenosis with a small second marginal. Right coronary artery was technically dominant with minor irregularities. Right femoral angiography showed patent common femoral, proximal SFA and profunda and therefore Mynx was used for hemostasis. IMPRESSION 1. [id number] coronary artery disease as described above. 2. Mild LV dysfunction with ejection fraction of about 45%. 3. Successful Mynx deployment for hemostasis. PLAN Medical management. DENNY
--- NOTE | 2016-08-21 19:45 | NUR ---
DISMISSAL WENT OVER WRITTEN DISMISSAL INSTRUCTIONS WITH PT AND PT'S INCLUDING MEDS, F/U APPT, WOUND CARE, S/SX TO REPORT, ACTIVITY/RESTRICTIONS. BOTH VERBALIZED UNDERSTANDING. HOME MEDS RETURNED. NO NEW SCRIPTS WERE GIVEN. PT'S PERSONAL BELONGINGS GATHERED INCLUDING CPAP. [place]AK[place] [facility] [place]SP[place] BY .
[2016-08-21] MEDS ORDERED: PANTOPRAZOLE 40 MG TABLET PO SCH (20:00)
--- OUTSIDE RECORDS SUMMARY | 2016-08-22 08:52 | XMS REPORT | Continuity of Care Document ---
Author Author [facility] Organization [facility] Address Unknown Phone Unavailable Support Name Relationship Address Phone DOMINGA BANKS MD Caregiver [address] [place] [address] Unavailable DOMINGA BANKS MD Caregiver [address] [place] [address] Unavailable AICHA BROUSSARD MD Caregiver [address] [place] [address] Unavailable HEYDI MOHAMUD MD Caregiver [address] [place] [address] [place] [address] Unavailable SNEHAL DIETZ Next Of Kin [address] [place] [address] Insurance Providers Guarantor Dion Dietz Address [address] [phone] Email [email or web address] Payer Aetna Medicare Supplement Policy Number [id number] Subscriber's Name Dion Dietz Relationship 18 Self Group Number PLANF Effective Date 14 Payer Medicare Policy Number [id number] Subscriber's Name Dion Dietz Relationship 18 Self Effective Date 02 Advance Directives Directive Response Recorded Date/Time Ordered Resuscitation Status Full Code, unverified 08/20/16 8:15pm Resuscitation Documents on File N WANTS TO BE RESUCITATED 08/20/16 8:48pm DPOA for Healthcare Only Y AT HOME (PAPERWORK) 08/21/16 2:29pm Living Will Yes 08/20/16 8:48pm Chief Complaint and Reason for Visit Chief Complaint CHEST PAIN, R/O [place] Reason for Visit BPH (benign prostatic hypertrophy) Problems Active Problems Medical Problem Onset Date Status BPH (benign prostatic hypertrophy) Unknown Chronic Gross's esophagus Unknown Bradycardia Unknown Chronic Bradycardia with 31 - 40 beats per minute Unknown Acute Chest pain Unknown Acute Cluster headaches Unknown Chronic HTN (hypertension) Unknown Chronic Leukocytosis Unknown Acute Multiple allergies Unknown SUMEET on CPAP Unknown Chronic Obesity (BMI 30-39.9) Unknown Chronic Osteoarthritis Unknown Chronic Past Problems Medical Problem Onset Date Chest pain, rule out acute myocardial infarction Unknown Laceration of thumb Unknown Medications Current Home Medications Medication Dose Units Route Directions Days Qty Instructions Start Date Aspirin 81 Mg Tablet 81 Mg Oral Daily 08/11/08 Fexofenadine Hcl (Rowan Allergy) 60 Mg Tablet 60 Mg Oral Every Other Day Do not drink Apple, [place], or Grapefruit juice within 4 hours of this medication, causes decreased absorption 08/20/16 Fexofenadine Hcl (Rowan Allergy) 180 Mg Tablet 180 Mg Oral Daily 08/20/16 Lisinopril 20 Mg Tablet 20 Mg Oral Daily 05/01/14 Lisinopril/Hydrochlorothiazide (Lisinopril-Hctz 20-25 Mg Tab) 1 Each Tablet 1 Tab Oral Daily 05/01/14 Naproxen Sodium (Aleve) 220 Mg Tablet 220 Mg Oral As Needed as needed for Pain 05/01/14 Pantoprazole Sodium 40 Mg Tablet.dr 40 Mg Oral Twice A Day Propranolol Hcl 120 Mg Cap.sa.24h 60 Mg Oral Twice A Day PT TO BEGIN TAKING 60MG BY MOUTH TWICE A DAY ON 08/22/16. WILL DISCUSS IN OFFICE THURSDAY , 08/25/16 10/17/14 Past Home Medications Medication Directions Ordered Status Amlodipine Besylate (Norvasc) 10 Mg Tablet, 5 Mg Oral Daily 08/11/08 Discontinued Bumetanide (Bumex) 2 Mg Tablet, 2 Mg Oral Daily 11/10/12 Discontinued Pantoprazole Sodium (Protonix) 40 Mg Tablet.dr, 40 Mg Oral Daily 08/11/08 Discontinued Propranolol Hcl 120 Mg Cap.sa.24h, 120 Mg Oral Twice A Day 08/11/08 Discontinued Triamterene/Hydrochlorothiazid (Triamterene-Hctz 37.5/25 Cp) 1 Cap Capsule, 1 Cap Oral Daily 08/11/08 Discontinued Social History Social History Problem Response Recorded Date/Time Onset Date Status Reason for Hospitalization chest pain 08/21/2016 7:35pm Not Applicable Not Applicable Chewing Tobacco Status No 11/09/2012 12:52pm Not Applicable Not Applicable Hx Substance Use No 08/20/2016 6:01pm Not Applicable Not Applicable Hx Alcohol Use No 08/20/2016 6:01pm Not Applicable Not Applicable Has the pt used tobacco in the last 12 months No 10/18/2014 7:42am Not Applicable Not Applicable Tobacco Usage none 10/15/2014 9:43am Not Applicable Not Applicable Query Response Start Date Stop Date Smoking Status Never smoker Hospital Discharge Instructions Instructions: Care Instructions: I was in the hospital because (patient own words): CHEST PAIN CONCERN Discharge Diet: Resume heart healthy diet Discharge Activity: Limit activity for 2 days. No lifting more than 10 pounds, no pushing or pulling for 1 week. Follow Up Appointments: SEE Dr Banks THURSDAY, AUGUST 25, 2016 @1030 Pending Lab / Results: No Pending Lab Patient Instructions: Do not drive, operate machinery or drink alcohol for 2 days. New prescriptions: PROPANOLOL CHANGED TO 60MG BY MOUTH TWICE A DAY. DR. BANKS WILL DISCUSS HOW THIS CHANGE IS WORKING FOR YOU ON THURSDAY Expected Signs/Symptoms: Bruising and tenderness at the site. Notify Physician If: Site is bleeding, abnormal drainage, increased pain or fever of 101.5 or more. During Business Hours:: Call Dr. Gooden's office at [phone]. After Business Hours:: Please call [phone] and have the hydrochloric acid operator page the physician. Pain Management/Treatment: Over the counter pain medication if needed. Wound/Incision Care: Keep site clean and dry. No tub baths or swimming for 1 week. You may shower. Condition at time of discharge: Good Plan of Care Discharge Date 08/21/16 7:45pm Disposition 01 DISCHARGED HOME, SELF-CARE Instructions/Education Provided [facility] [place] Heart Cath Chest Pain (DC) Prescriptions See Medication Section Care Plan and Goals See Discharge Instructions Section Functional Status Query Response Date Recorded Mobility Status Ambulatory August 20, 2016 8:34pm Assistive Devices None August 20, 2016 8:34pm Activity Limitations Weakness August 20, 2016 8:34pm Feeding Ability Independent August 20, 2016 8:34pm Toileting Ability Independent August 20, 2016 8:34pm Grooming Ability Independent August 20, 2016 8:34pm Dressing Ability Independent August 20, 2016 8:34pm Driving Ability Independent August 20, 2016 8:34pm Housework Ability Independent August 20, 2016 8:34pm Meal Preparation Ability Independent August 20, 2016 8:34pm Stair Climbing Ability Independent August 20, 2016 8:34pm Ability to complete ADL's impeded by No change August 20, 2016 8:48pm Cognitive/Perceptual Impairments Impaired vision August 20, 2016 8:34pm Visual Assistive Devices Glasses August 20, 2016 8:34pm Preferred Method of Learning Reading Demonstration Listening Hands on August 20, 2016 8:34pm Allergies, Adverse Reactions, Alerts Allergen Type Severity Reaction Status Last Updated No Known Drug Allergies Allergy Unknown Active 08/20/16 Immunizations Immunization Event Date Type Not Given Reason Dose Number Lot Number Assessment Expert VIS Given Pneumococcal conjugate PCV 13 08/21/16 Administered 1 [id number] Pfizer Query Response on File Recorded Date/Time Hx Influenza Vaccination Y JUNE 2016 08/20/16 8:57pm Hx Pneumococcal Vaccination Y 200808/20/16 8:57pm Hx Influenza Vaccination Y JUNE 2016 08/20/16 8:57pm Hx Tetanus Diptheria Yes 10/14/14 11:00pm Influenza Vaccine Hx 07/0108/21/16 1:03pm Tetanus Diptheria Vaccine History 11/30/15 08/20/16 6:01pm Tdap Vaccine Hx UNKNOWN 11/30/15 5:47pm Vital Signs Acute Vital Signs Vital Response Date/Time Temperature (Fahrenheit) 96.3 deg F (96.8 - 99.1) 08/21/2016 11:18am Temperature (Calculated Celsius) 35.63377 degrees C (36.0 - 37.3) 08/21/2016 11:18am Pulse Rate (adult) 44 bpm (60 - 100) 08/21/2016 7:03pm Respiratory Rate 26 breaths/min (10 - 20) 08/21/2016 7:03pm O2 Sat by Pulse Oximetry 96 % (90 - 100) 08/21/2016 7:03pm Oxygen Delivery Method Room Air 08/21/2016 7:03pm Oxygen Delivery Method Room Air 08/21/2016 11:18am Blood Pressure 178/79 mm Hg 08/21/2016 7:03pm Blood Pressure Source Automatic Cuff 08/21/2016 7:03pm Height (Feet) 6 feet 08/21/2016 2:29pm Height (Inches) 0.00 inches 08/21/2016 2:29pm Weight (Kilograms) 130.100 kg 08/21/2016 3:00pm Body Mass Index (BMI) 39.2 08/20/2016 8:44pm Results Laboratory Results Test Name Result Units Flags Reference Collection Date/Time Result Date/ Time Comments White Blood Count 6.3 T/MM3 4.5-11.0 08/21/2016 5:08/21/2016 5: 39am Red Blood Count 4.77 M/MM3 4.50-5.90 08/21/2016 5:08/21/2016 5: 39am Hemoglobin 14.3 GM/DL 13.5-17.5 08/21/2016 5:08/21/2016 5:39am Hematocrit 42.3 % 41-53 08/21/2016 5:08/21/2016 5:39am Mean Corpuscular Volume 88.7 UM3 80-100 08/21/2016 5:08/21/2016 5: 39am Mean Corpuscular Hemoglobin 30.0 UUG 26-34 08/21/2016 5:2016 5:39am Mean Corpuscular Hemoglobin Concent 33.8 GM/DL 31-37 08/21/2016 5:08/21/2016 5:39am RDW Standard Deviation 44.2 FL 36.9-50.2 08/21/2016 5:08/21/2016 5 :39am Platelet Count 167 T/MM3 130-400 08/21/2016 5:08/21/2016 5:39am Mean Platelet Volume 11.0 UM3 9.4-12.4 08/21/2016 5:08/21/2016 5: 39am Neutrophils (%) (Auto) 46.5 % 33-66 08/21/2016 5:08/21/2016 5: 39am Lymphocytes (%) (Auto) 36.3 % 23-45 08/21/2016 5:08/21/2016 5: 39am Monocytes (%) (Auto) 8.5 % 0-9.0 08/21/2016 5:08/21/2016 5:39am Eosinophils (%) (Auto) 7.9 % H 0-4 08/21/2016 5:08/21/2016 5:39am Basophils (%) (Auto) 0.6 % 0-2 08/21/2016 5:08/21/2016 5:39am Immature Granulocyte % (Auto) 0.2 % 0.0-0.5 08/21/2016 5:12am 2016 5:39am Absolute Neutrophils (auto) 2.9 T/MM3 1.8-7.7 08/21/2016 5:12am 2016 5:39am Absolute Lymphocytes (auto) 2.3 T/MM3 1-4.8 08/21/2016 5:122016 5:39am Absolute Monocytes (auto) 0.5 T/MM3 0-0.8 08/21/2016 5:1208/21/2016 5:39am Absolute Eosinophils (auto) 0.5 T/MM3 0-0.5 08/21/2016 5:122016 5:39am Absolute Basophils (auto) 0.0 T/MM3 0-0.2 08/21/2016 5:12am 08/21/2016 5:39am Absolute Immature Granulocyte (auto 0.01 T/MM3 0.00-0.03 08/21/2016 5: 1208/21/2016 5:39am Prothromb Time International Ratio 1.07 H 0.76-1.04 08/20/2016 6:13pm 08/20/2016 6:24pm THERAPUTIC RANGE=2.00-3.00 FOR ANTI-THROMBOSIS THERAPUTIC RANGE=2.50-3.50 FOR IMPLANTED VALVE Activated Partial Thromboplast Time 28.9 SEC 24-36 08/20/2016 6:13pm 6:24pm Icterus Index < 2 0-7 08/21/2016 5:12am 08/21/2016 5:51am Chemistry Specimen Hemolysis < 15 0-25 08/21/2016 5:55pm 08/21/2016 6 :18pm 0-25: Specimen Exhibited No Hemolysis. Turbidity < 20 0-20 08/21/2016 5:12am 08/21/2016 5:51am Sodium Level 143 MEQ/L D 134-144 08/21/2016 5:12am 08/21/2016 5:51am Potassium Level 3.4 MEQ/L L 3.6-5 08/21/2016 5:55pm 08/21/2016 6:18pm Chloride Level 106 MEQ/L 98-107 08/21/2016 5:12am 08/21/2016 5:51am Carbon Dioxide Level 27 MEQ/L 22-30 08/21/2016 5:12am 08/21/2016 5: 51am Anion Gap 10 MEQ/L 5-15 08/21/2016 5:12am 08/21/2016 5:51am Blood Urea Nitrogen 15.0 MG/DL 9-20 08/21/2016 5:12am 08/21/2016 5: 51am Creatinine 1.0 MG/DL 0.8-1.5 08/21/2016 5:12am 08/21/2016 5:51am BUN/Creatinine Ratio 15 RATIO 6-26 08/21/2016 5:12am 08/21/2016 5:51am Glomerular Filtration Rate Calc 72 08/21/2016 5:12am 08/21/2016 5: 51am Glucose Level 123 MG/DL H 75-110 08/21/2016 5:12am 08/21/2016 5:51am Calculated Osmolality 277 MOSM/KG 261-280 08/21/2016 5:1208/21/2016 5:51am Calcium Level 8.6 MG/DL D 8.4-10.2 08/21/2016 5:12am 08/21/2016 5:51am Total Bilirubin 1.40 MG/DL H 0.20-1.30 08/20/2016 6:13pm 08/20/2016 6: 17pm Alkaline Phosphatase 63 U/L 38-126 08/20/2016 6:13pm 08/20/2016 6:17pm Total Protein 7.6 G/DL 6.3-8.2 08/20/2016 6:13pm 08/20/2016 6:17pm Albumin 4.3 G/DL 3.5-5.0 08/20/2016 6:13pm 08/20/2016 6:17pm Globulin 3.3 G/DL 2.4-3.6 08/20/2016 6:13pm 08/20/2016 6:17pm Albumin/Globulin Ratio 1.3 RATIO 1.1-2.2 08/20/2016 6:13pm 08/20/2016 6 :17pm Aspartate Amino Transf (AST/SGOT) 23 U/L 17-59 08/20/2016 6:13pm 2016 6:17pm Alanine Aminotransferase (ALT/SGPT) 35 U/L 21-72 08/20/2016 6:13pm 01/2017 6:17pm Troponin I 0.017 ng/ml 0-0.12 08/21/2016 5:12am 08/21/2016 5:54am Troponin values with a difference of 55% increase from orginal troponin value represent a true biological DELTA value. (%increase Calc=Orginal Troponin value, divided by subsequent Troponin value, multiplied by 100) JY-Svm-O-Type Natriuretic Peptide 470 PG/ML H 0-175 08/20/2016 6:13pm 6:17pm Rule in cut points: <50 years old=450; 50-75 years old=900; >75 years old=1800; When utilizing ProBNP rule-in cut points, adjustment for impaired renal function is typically not required. Magnesium Level 1.8 MG/DL 1.6-2.3 08/21/2016 5:09am 08/21/2016 2:42pm Name: DION DIETZ Unit #: [id number] : 1935 Sex: M Admit Date: 08/20/16 Loc / Svc: MED Discharge Date: DIAGNOSTIC IMAGING REPORT Report #: [id number] [place], [place] INDICATION: ITS.REASON: cough and chest pain PROCEDURE: CHEST 2-VIEWS UPRIGHT (PA \T\ LAT) Encounter: Initial Comparison: October 14, 2014 Findings: The lungs are stable in appearance without new focal airspace consolidation. Hyperinflation. There is no pleural effusion or pneumothorax. The heart size, pulmonary vascularity and mediastinal contours are unchanged. IMPRESSION: Stable appearance of the chest without acute cardiopulmonary disease. . Procedures No known history of procedures. Encounters Encounter Location Arrival/Admit Date Discharge/Depart Date Attending Provider Discharged Inpatient (obs) [facility] 08/20/16 8:15pm 08/21/16 7: 45pm DOMINGA BANKS MD Recent Diagnosis BPH (benign prostatic hypertrophy)
--- OUTSIDE RECORDS SUMMARY | 2016-08-22 08:53 | XMS REPORT | Continuity of Care Document ---
Author Author [facility] Organization [facility] Address Unknown Phone Unavailable Support Name Relationship Address Phone TORIE NASH MD Caregiver [address] [facility] [address] [place] [address] [phone] HEBER FRENCH MD Caregiver [facility] MEDICINE [address] [facility] [address] [place] [address] SNEHAL DIETZ Next Of Kin [address] [phone] Insurance Providers Payer Name Policy Number Subscriber Name Relationship Medicare [id number] Dion Dietz 18 Self Blue Cross Select Plan 65 [id number] Dion Dietz 18 Self Advance Directives Directive [...] F (96.8 - 99.1) Temperature (Calculated Celsius) 36.26266 degrees C (36.0 - 37.3) Temperature Source [...] 14, 2014 12:05pm LAB TEST FORM REQUEST [id number] - Lymphocytes # (Auto) May 02, 2014 [...] - Urine Color February 14, 2014 11:15am [place] - Urine Culture Indicated February 14, 2014 [...] 2014 11:15am 1-3 /HPF - Urine Specific [place] February 14, 2014 11:15am 1.025 - Urine [...] Enterobacter Aerogenes Name: DION DIETZ Unit #: [id number] : 1935 Sex: M Loc / Svc: [facility] DOS: 02/14/14 Signed Report #: [id number] DIAGNOSTIC IMAGING REPORT TYPE OF EXAM: US [...] NASH MD Encounters Encounter Location Date/Time Registered [facility] 02/14/14 11:52am Registered [facility] 02/14/14 11:37am
--- OUTSIDE RECORDS SUMMARY | 2016-08-22 08:53 | XMS REPORT | Continuity of Care Document ---
Author Author [facility] Organization [facility] Address Unknown Phone Unavailable Support Name Relationship Address Phone DOMINGA BANKS MD Caregiver [address] [place] [address] Unavailable DOMINGA BANKS MD Caregiver [address] [place] [address] Unavailable DEANA SANTIZO MD Caregiver [address] [facility] [place] [address] Unavailable AICHA BROUSSARD MD Caregiver [address] [place] [phone] Unavailable HEYDI MOHAMUD MD Caregiver [address] [place] [address] [employer] [place] [address] Unavailable SNEHAL DIETZ Next Of Kin [address] [id number] Insurance Providers Guarantor Dion Dietz Address [address] [phone] Email [email or web address] Payer Aetna Medicare Supplement Policy Number [id number] Subscriber's Name J LuisDion cabello Cj Relationship 18 Self Group Number PLANF Effective Date 14 Payer Medicare Policy Number [id number] Subscriber's Name Dion Dietz Cj Relationship 18 Self Effective Date 02 Advance Directives Directive Response Recorded Date/Time Ordered Resuscitation Status Full Code, unverified 08/20/16 8:15pm Resuscitation Documents on File N WANTS TO BE RESUCITATED 08/20/16 8:48pm DPOA for Healthcare Only Y AT HOME (PAPERWORK) 08/21/16 2:29pm Living Will Yes 08/20/16 8:48pm Problems Active Problems Medical Problem Onset Date [...] Every Other Day Do not drink Apple, [place], or Grapefruit juice within 4 hours of [...] or more. During Business Hours:: Call Dr. Santizo's office at [phone]. After Business Hours:: Please call [phone] and have the gear machine operator general page the physician. Pain Management/Treatment: Over the counter pain medication if needed. Wound/Incision Care: Keep site clean and dry. No tub baths or swimming for 1 week. You may shower. Condition at time of discharge: Good Plan of Care Discharge Date 08/21/16 7:45pm Instructions/Education Provided [facility] Heart Cath Chest Pain (DC) Prescriptions See Medication Section Functional Status Query Response Date Recorded [...] Not Given Reason Dose Number Lot Number Director Shopper Marketing VIS Given Pneumococcal conjugate PCV 13 08/21/16 Administered 1 [id number] Pfizer Query Response on File Recorded Date/Time [...] - 99.1) 08/21/2016 11:18am Temperature (Calculated Celsius) 35.08813 degrees C (36.0 - 37.3) 08/21/2016 11:18am [...] Granulocyte % (Auto) 0.2 % 0.0-0.5 08/21/2016 5:122016 5:39am Absolute Neutrophils (auto) 2.9 T/MM3 1.8-7.7 08/21/2016 5:12am 2016 5:39am Absolute Lymphocytes (auto) 2.3 T/MM3 1-4.8 08/21/2016 5:12am 2016 5:39am Absolute Monocytes (auto) 0.5 T/MM3 0-0.8 08/21/2016 5:1208/21/2016 5:39am Absolute Eosinophils (auto) 0.5 T/MM3 0-0.5 08/21/2016 5:122016 5:39am Absolute Basophils (auto) 0.0 T/MM3 0-0.2 08/21/2016 5:1208/21/2016 5:39am Absolute Immature Granulocyte (auto 0.01 T/MM3 [...] 5:51am Calculated Osmolality 277 MOSM/KG 261-280 08/21/2016 5:12am 08/21/2016 5:51am Calcium Level 8.6 MG/DL D 8.4-10.2 08/21/2016 5:12am 08/21/2016 5:51am Total Bilirubin 1.40 MG/DL H 0.20-1.30 08/20/2016 6:13pm 08/20/2016 6: 17pm Alkaline Phosphatase 63 U/L 38-126 08/20/2016 6:13pm 08/20/2016 6:17pm Total Protein 7.6 G/DL 6.3-8.2 08/20/2016 6:13pm 08/20/2016 6:17pm Albumin 4.3 G/DL 3.5-5.0 08/20/2016 6:13pm 08/20/2016 6:17pm Globulin 3.3 G/DL 2.4-3.6 08/20/2016 6:1308/20/2016 6:17pm Albumin/Globulin Ratio 1.3 RATIO 1.1-2.2 08/20/2016 6:1308/20/2016 6 :17pm Aspartate Amino Transf (AST/SGOT) 23 U/L 17-59 08/20/2016 6:13pm 2016 6:17pm Alanine Aminotransferase (ALT/SGPT) 35 U/L 21-72 08/20/2016 6:13pm 01/2017 6:17pm Troponin I 0.017 ng/ml 0-0.12 08/21/2016 5:12am 08/21/2016 5:54am Troponin values with a difference of 55% increase from orginal troponin value represent a true biological DELTA value. (%increase Calc=Orginal Troponin value, divided by subsequent Troponin value, multiplied by 100) TM-Lsu-P-Type Natriuretic Peptide 470 PG/ML H 0-175 08/20/2016 6:13pm 6:17pm Rule in cut points: <50 years old=450; 50-75 years old=900; >75 years old=1800; When utilizing ProBNP rule-in cut points, adjustment for impaired renal function is typically not required. Magnesium Level 1.8 MG/DL 1.6-2.3 08/21/2016 5:09am 08/21/2016 2:42pm Name: DION DIETZ Unit #: [id number] : 1935 Sex: M Admit Date: 08/20/16 Loc / Svc: MED Discharge Date: DIAGNOSTIC IMAGING REPORT Report #: [id number] [place], [place] INDICATION: ITS.REASON: cough and chest pain [...] Arrival/Admit Date Discharge/Depart Date Attending Provider Departed [facility] 08/20/16 8:15pm 08/21/16 7: 45pm DEANA SANTIZO MD Recent Diagnosis BPH (benign prostatic hypertrophy)
--- OUTSIDE RECORDS SUMMARY | 2016-08-22 08:54 | XMS REPORT | Continuity of Care Document ---
Author Author [facility] Organization [facility] Address Unknown Phone Unavailable Allergies Medications Problems Date Dx Coded Attending Type Code Diagnosis Diagnosed By 10/11/2012 Gilberto Gooden MD 416.8 [facility] PULMON HEART DIS NEC 10/11/2012 Gilberto Gooden MD 416.8 [facility] PULMON HEART DIS NEC 10/11/2012 Gilberto Gooden MD 416.8 [facility] PULMON HEART DIS NEC Procedures Results Test Result Range BLOOD UREA NITROGEN - 10/11/12 12:39 BLOOD UREA NITROGEN 17 mg/dL 7-20 CREATININE - 10/11/12 12:39 CREATININE 1.1 mg/dL 0.8-1.3 Encounters ACCT No. Visit Date/Time Discharge Status Pt. Type Provider Facility Loc./Unit Complaint [id number] 10/11/2012 12:19:00 2012 12:19:00 DIS Outpatient Giacomo HUSTON, Gilberto [facility] W.LAB
--- NOTE | 2016-08-22 09:11 | HPF ---
HISTORY AND PHYSICAL ADDENDUM HPI The patient is a 80-year-old male who presented to [facility] via private vehicle yesterday around 5:00 p.m. after he sustained an acute onset of chest pain substernally approximately one hour prior to ER visit. The patient was worked up in the ER for a couple of hours. He had felt really tired before the acute onset of chest pain. At the same time he was having some shortness of breath, sweating, nausea, vomiting and lightheadedness. 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 Adilson Raines, in [place], [place]. The patient had a heart cath about two years ago that showed no significant occlusive cardiac disease at that time. Please note yesterday in the emergency room patient got sublingual nitro x 3 and the pain went away. PAST MEDICAL HISTORY Past medical history is listed as Gross's esophagus, morbid obesity, COPD, hypertension, cluster headaches and allergic rhinitis. The rest of the past medical history, family history as well as medication are listed by the telemedicine physician, Dr. Shepherd, on last night's history and physical examination. This is just an addendum basically. PHYSICAL EXAMINATION VITAL SIGNS: The patient's vital signs when I saw him were BP 163/70 with a pulse of 48, temperature 96.3, and O2 sat was 94% on room air. GENERAL: He looked comfortable, cheerful, in no distress. HEENT: Unremarkable. NECK: Supple. LUNGS: Clear. CARDIOVASCULAR: Regular rate and rhythm. ABDOMEN: Soft. EXTREMITIES: No cyanosis, clubbing or edema. NEURO EXAM: Grossly intact. LAB Thus far, patient has had multiple labs including a CBC that is entirely normal. Chemistry: Upon admission sodium was 149, potassium 3.6. Potassium this morning is 3.2. Troponin I on three occasions has been normal. EKG basically shows sinus bradycardia with a first-degree AV block. ASSESSMENT 1. Chest pain. 2. History of Gross's esophagus. 3. Hypertension. 4. Recent acute bronchitis. 5. Hypokalemia. PLAN Cardiology has been consulted. The patient then wanted a heart cath done. Follow up patient's potassium and magnesium. We will correct potassium as quickly as possible. [facility]
== END 2016-08-21 19:45 | disposition home or self-care (01) ==
LOC: ED 17:32 → UNDOADMOB 20:15 → MED 20:15 → CATH 20:15 → EDHOLD 20:15 → MED 20:44 → EDHOLD 20:44 → SRG 08-21 14:52 → MED 08-21 14:52 → CATH 08-21 19:45 → UNDODISOB 08-21 19:45
PROVIDERS: ATTEND Internal Medicine Cardiovascular Disease
DX: I25.10 Atherosclerotic heart disease of native coronary artery without angina pectoris (principal); R07.89 Other chest pain; R00.1 Bradycardia, unspecified; R61 Generalized hyperhidrosis; R11.2 Nausea with vomiting, unspecified; I10 Essential (primary) hypertension; Z98.61 Coronary angioplasty status; J44.9 Chronic obstructive pulmonary disease, unspecified; E66.01 Morbid (severe) obesity due to excess calories; Z68.38 Body mass index [BMI] 38.0-38.9, adult; G44.009 Cluster headache syndrome, unspecified, not intractable; J30.9 Allergic rhinitis, unspecified; Z79.82 Long term (current) use of aspirin; Z79.1 Long term (current) use of non-steroidal anti-inflammatories (NSAID); Z79.899 Other long term (current) drug therapy; Z87.19 Personal history of other diseases of the digestive system; E87.6 Hypokalemia; I44.0 Atrioventricular block, first degree; Z23 Encounter for immunization
CPT/HCPCS: 36415; 71020; 80048; 80053; 83735; 83880; 84132; 84484; 85025; 85610; 85730; 90732; 93005; 93458; 96360; 96361; 99284; A9270; C1760; C1769; C1887; C1893; G0009; G0378; J1644; J2250; J3010; J7030; Q9967; 99218

== ENCOUNTER → 2016-10-07 | Outpatient (CLI) | payer MEDICARE, OTHER ==
[~2016-10-07] MED LIST changes: +FEXO-11 PO; +FEXO180T94 PO; -FEXO1TAB11 PO
[2016-10-07 11:04] LABS: BASOPHILS # (AUTO) 0.1 T/MM3 (0-0.2); BASOPHILS % (AUTO) 0.9 % (0-2); EOSINOPHILS # (AUTO) 0.3 T/MM3 (0-0.5); HGB - HEMOGLOBIN 15.1 GM/DL (13.5-17.5); IMMATURE GRANULOCYTE # (AUTO) 0.01 T/MM3 (0.00-0.03); IMMATURE GRANULOCYTE % (AUTO) 0.2 % (0.0-0.5); LYMPHOCYTES # (AUTO) 1.9 T/MM3 (1-4.8); LYMPHOCYTES % (AUTO) 28.8 % (23-45); MEAN CORPUSCULAR HGB 29.4 UUG (26-34); MEAN CORPUSCULAR HGB CONC(MCHC 32.8 GM/DL (31-37); MEAN CORPUSCULAR VOLUME 89.5 UM3 (80-100); MEAN PLATELET VOLUME 10.5 UM3 (9.4-12.4); MONOCYTES # (AUTO) 0.5 T/MM3 (0-0.8); MONOCYTES % (AUTO) 7.5 % (0-9.0); NEUTROPHILS #(AUTO)-ABSOLUTE 3.9 T/MM3 (1.8-7.7); NEUTROPHILS % (AUTO) 58.6 % (33-66); RED BLOOD COUNT 5.14 M/MM3 (4.50-5.90); WBC - WHITE BLOOD COUNT 6.6 T/MM3 (4.5-11.0)
[2016-10-07 11:15] LABS: ALBUMIN 3.8 G/DL (3.5-5.0); ALBUMIN/GLOBULIN RATIO 1.3 RATIO (1.1-2.2); ALKALINE PHOSPHATASE 57 U/L (38-126); ALT (SGPT) 28 U/L (21-72); ANION GAP 13 MEQ/L (5-15); AST (SGOT) 21 U/L (17-59); BUN/CREATININE RATIO 18 RATIO (6-26); CALCIUM 9.5 MG/DL (8.4-10.2); CHLORIDE 105 MEQ/L (98-107); CO2 - CARBON DIOXIDE 31 MEQ/L (22-30); CREATININE 0.9 MG/DL (0.8-1.5); GLOMERULAR FILTRATION RATE 82; GLUCOSE 99 MG/DL (75-110); POTASSIUM 4.1 MEQ/L (3.6-5); SODIUM 149 MEQ/L (134-144); TOTAL PROTEIN 6.7 G/DL (6.3-8.2)
== END ==
LOC: LAB 10:43
PROVIDERS: ATTEND Surgery Plastic and Reconstructive Surgery
DX: Z01.818 Encounter for other preprocedural examination (principal)
CPT/HCPCS: 36415; 80053; 85025

== ENCOUNTER 2016-10-29 07:45 | Day surgery (SDC) | payer MEDICARE, OTHER ==
[~2016-10-29] VITALS: Ht 180.3 cm; Wt 129.5 kg
[2016-10-29] VITALS (15 sets, daily range): BP systolic 150–221; BP diastolic 68–113; PULSE 45–57; RESP 12–26; TEMP 97–98.1; O2SAT 93–96; Ht 180.3 cm; Wt 129.5 kg
[~2016-10-29 07:45] MED LIST changes: +AMLO5TAB2 PO; +FENTANYL 100mcg/2ml INJECTION IV PRN; +LIDOCAINE 1% (10mg/ml) 2ml SDV INJ ONE; +LR 1,000 ML IV SCH; +MIDAZOLAM 5mg/5ml INJECTION IV PRN; +PROP80CA2 PO
--- OUTSIDE RECORDS SUMMARY | 2016-10-29 07:50 | XMS REPORT | Continuity of Care Document ---
Author Author [facility] Organization [facility] Address Unknown Phone Unavailable Support Name Relationship Address Phone TORIE NASH MD Caregiver [address] [facility] [address] [address] [place] [address] [phone] HEBER FRENCH MD Caregiver [facility] MEDICINE [address] [facility] [address] [place] [address] SNEHAL DIETZ Next Of Kin [address] [phone] Insurance Providers Payer Name Policy Number Subscriber Name Relationship Medicare [id number] Dion Dietz 18 Self Blue Cross Select Plan 65 [id number] Dion Dietz 18 Self Advance Directives Directive [...] F (96.8 - 99.1) Temperature (Calculated Celsius) 36.17178 degrees C (36.0 - 37.3) Temperature Source [...] 14, 2014 12:05pm LAB TEST FORM REQUEST [id number] - Lymphocytes # (Auto) May 02, 2014 [...] - Urine Color February 14, 2014 11:15am [place] - Urine Culture Indicated February 14, 2014 [...] 2014 11:15am 1-3 /HPF - Urine Specific [place] February 14, 2014 11:15am 1.025 - Urine [...] Enterobacter Aerogenes Name: DION DIETZ Unit #: [id number] : 1935 Sex: M Loc / Svc: [facility] DOS: 02/14/14 Signed Report #: [id number] DIAGNOSTIC IMAGING REPORT TYPE OF EXAM: US [...] NASH MD Encounters Encounter Location Date/Time Registered [facility] 02/14/14 11:52am Registered [facility] 02/14/14 11:37am
--- OUTSIDE RECORDS SUMMARY | 2016-10-29 07:51 | XMS REPORT | Continuity of Care Document ---
Author Author [facility] Organization [facility] Address Unknown Phone Unavailable Allergies Medications Problems Date Dx Coded Attending Type Code Diagnosis Diagnosed By 10/11/2012 Gilberto Gooden MD 416.8 [facility] PULMON HEART DIS NEC 10/11/2012 Gilberto Gooden MD 416.8 [facility] PULMON HEART DIS NEC 10/11/2012 Gilberto Gooden MD 416.8 [facility] PULMON HEART DIS NEC Procedures Results Test Result Range BLOOD UREA NITROGEN - 10/11/12 12:39 BLOOD UREA NITROGEN 17 mg/dL 7-20 CREATININE - 10/11/12 12:39 CREATININE 1.1 mg/dL 0.8-1.3 Encounters ACCT No. Visit Date/Time Discharge Status Pt. Type Provider Facility Loc./Unit Complaint [id number] 10/11/2012 12:19:00 2012 12:19:00 DIS Outpatient Giacomo HUSTON, Gilberto [facility] W[facility]
[2016-10-29] MEDS ORDERED: CEFAZOLIN 1 GRAM INJECTION IV ONE (08:00)
[2016-10-29 08:33] LABS: ANION GAP 13 MEQ/L (5-15); BUN/CREATININE RATIO 16 RATIO (6-26); CALCIUM 9.2 MG/DL (8.4-10.2); CHLORIDE 107 MEQ/L (98-107); CO2 - CARBON DIOXIDE 28 MEQ/L (22-30); CREATININE 0.8 MG/DL (0.8-1.5); GLOMERULAR FILTRATION RATE 93; GLUCOSE 99 MG/DL (75-110); POTASSIUM 3.8 MEQ/L (3.6-5); SODIUM 148 MEQ/L (134-144)
--- NOTE | 2016-10-29 09:09 | ANESPREOP ---
Anesthesia Record Date and Time DATE: 10/29/16 TIME: 901 Proposed Surgical Procedure EXC. LT. FRONTAL SCALP Allergies: Coded Allergies: No Known Drug Allergies (Verified Allergy, Unknown, 10/29/16) Ht/Wt/BMI Height: 5 ' 11.00 " Weight: 129.500 kg BMI: 39.8 kg/m2 Vital Signs Date Time Temp Pulse Resp B/P Pulse Ox O2 Delivery O2 Flow Rate FiO2 10/29/16 08:00 98.1 50 16 221/97 94 Room Air Medications Inpatient Medications Current Medications Medications (Trade) Dose Ordered Sig/Kevin Start Time Stop Time Status Last Admin Dose Admin Lactated Ringer's (Lactated Ringers) 1,000 ml @ 50 mls/hr Q20H 10/29/16 07:00 10/29/16 08:39 50 MLS/HR Midazolam HCl (Versed) VERSED 0.5-3MG IV P... Q10MIN PRN 10/29/16 07:00 Fentanyl (Fentanyl) FENTANYL 25-50MCG IV P... PRN PRN 10/29/16 07:00 Amlodipine Besylate (Amlodipine Besylate) 5 Mg Tablet, 1 TAB PO DAILY, (Reported ) Last Taken: on 10/29/16 06 Aspirin (Aspirin) 81 Mg Tablet, 81 MG PO DAILY, (Reported) Last Taken: on 10/22/16 Fexofenadine HCl (Rowan Allergy) 180 Mg Tablet, 180 MG PO DAILY, (Reported) Fexofenadine HCl (Rowan Allergy) 60 Mg Tablet, 60 MG PO QOD, (Reported) Do not drink Apple, [place], or Grapefruit juice within 4 hours of this medication, causes decreased absorption Lisinopril (Lisinopril) 20 Mg Tablet, 20 MG PO DAILY, (Reported) Last Taken: on 10/29/16 06 Lisinopril/Hydrochlorothiazide (Lisinopril- Hctz 20-25 mg Tab) 1 Each Tablet, 1 TAB PO DAILY, (Reported) Last Taken: on 10/29/16629 Naproxen Sodium (Aleve) 220 Mg Tablet, 220 MG PO PRN PRN for PAIN, (Reported) Last Taken: on 10/29/1630 Pantoprazole Sodium (Pantoprazole Sodium) 40 Mg Tablet.dr, 40 MG PO BID, (Reported) Last Taken: on 10/29/16 0630 Propranolol HCl (Propranolol HCl) 120 Mg Cap.sa.24h, 60 MG PO BID, (Reported) PT TO BEGIN TAKING 60MG BY MOUTH TWICE A DAY ON 08/22/16. WILL DISCUSS IN OFFICE 08/25/16 Last Taken: on 10/29/16 0630 Propranolol HCl (Propranolol HCl) 80 Mg Cap.sa.24h, 1 TAB PO BID, (Reported) Last Taken: on 10/28/16 2200 Currently on Beta Brian: Yes Beta Brian Last Taken: PROPRANOLOL 10/29/16 0630 Medical/Surgical History Anesthesia PMH: Reports: *Angina, *Dyspnea (ON EXERTION), *Hypertension ( CONTROLLED WITH MEDS), Arthritis (OA ), Cancer (BCC-LEFT SCALP,BACK,PROSTATE ), Pneumonia ('YEARS AGO'), Reflux, Sleep Apnea (USES CPAP), Denies: *Diabetes, *HI , Anesthesia Reactions (NO AIRWAY ISSUES ), Asthma, Blood Transfusion Reac, CHF , COPD, CVA/Stroke/TIA, Clotting Problems, Deep Vein Thrombosis, Glaucoma, Hepatitis, Hiatal Hernia, Malignant Hyperthermia, Pacemaker, Renal Disease, Seizures, Thyroid Disease, Tuberculosis Smoking Status: Never smoker Has pt. smoked today?: No Use Chewing Tobacco?: No Substance Use Type: does not use Past Surgical History Orthopedic Surgeries: Yes - HANK. KNEE REPLACEMENT, BACK SURGERY Abdominal Surgeries: Yes - KIRT, APPY, Genitourinary Surgeries: Yes - TURP, PROSTATE BIOPSY Cardiac Surgeries: Yes - HEART CATH (2 SURGERIES) Endocrine Surgeries: No Reproductive Surgeries: Yes - RIGHT INGUINAL HERNIA Neurological Surgeries: No Ear Surgeries: No Nose Surgeries: Yes - NOSE RECONSTRUCTION Throat Surgeries: No Other Surgeries: Yes - COLONOSCOPY, HANK. CAT. Anesthesia Adverse Reactions: FOUND none Family Hx of Anesthesia Advers: none Hx of Motion Sickness: No Pertinent Findings Laboratory Tests 10/29/16 08:14 Physical Exam Respiratory: Lungs clear Cardiovascular: FOUND Regular rate, rhythm Airway Assessment Mallampati Score: II TMD: 3 Fingerbreadths Neck Extension: Good Overall Assessment: May Be Diff Mask Vent., May Be Diff Intubation ASA: 3 Plan Anesthesia Plan: MAC Discussion Discussed risks/options/alternatives of anesthesia and questions answered. Patient consents. Nursing pain assessment noted. Attestation Statement Prior to the delivery of any anesthetic medication, I examined the patient, developed the plan, obtained the patient's consent and discussed the risk and benefits of the procedure with the patient/guardian. ERNESTINE MCGILL CRNA October 29, 2016 09:09
--- NOTE | 2016-10-29 09:20 | NUR ---
MOHS EXCISION PT HERE FOR MOHS EXCISION TO BCC OF LEFT SCALP. LESION EXCISION DONE IN PREOP W/ PREOP RN GIVING SEDATION. PT WAS INTERVIEWED BY CAREER DEVELOPMENT DIRECTOR/ POLITICAL REPORTER AND DR PRIOR TO ANY SEDATION. TIME OUT WAS COMPLETED BY Brian GOMEZ RN AT 0908. DR BRUNSON IN ROOM AT 0905. PT WAS PREPPED AND DRAPED BY DR BRUNSON. LOCAL INJECTED AT START TIME OF 912. TOTAL AMOUNT 10CC OF LIDOCAINE 1% W/ EPI TO LEFT SCALP. CAUTERY USED AT 30 CUT AND 45 COAG. SPECIMEN SENT DIRECTLY TO PATHOLOGY FOR FROZEN SECTION. [id number] LABELED #1 MOHS EXCISION OF BASAL CELL CARCINOMA OF LEFT SCALP. DR BRUNSON ASSISTED BY Nuno TAN RN . SEDATION RN -Malvin FREEDMAN RN. PT TOLERATED PROCEDURE WELL. DRESSING OF 4X4 TO SCALP AT END OF PROCEDURE. PT TOLERATED PROCEDURE WELL.
--- NOTE | 2016-10-29 10:30 | PDPROCED ---
Procedure Note Date 10/29/16 Procedure Name Excision BCC left frontal scalp with frozen section guidance of margins and complex closure: Lesion size 1.3 cm, excision 2.3 cm, final defect 3.1 cm Procedure Detail Preop dx: BCC Left frontal scalp Postop dx: Same Anesthesia: MAC Case: Clean EBL: 30 ml Complications: None NIKKI BRUNSON MD October 29, 2016 10:30
--- NOTE | 2016-10-29 10:41 | ANESPO ---
Post-Op Note Date 10/29/16 Time: 10:41 Status Pt Participated in Evaluation: Pt participated in person Vital Signs Date Time Temp Pulse Resp B/P Pulse Ox O2 Delivery O2 Flow Rate FiO2 10/29/16 09:40 45 13 151/68 95 Room Air 10/29/16 08:00 98.1 Respiratory Function: Airway patent Cardiovascular Function: Regular pulse Mental Status: Alert/oriented Pain Level Intensity: 0 Hydration: IV infusing Complications during Recovery None apparent Follow-Up Instructions Instructions Per Surgeon ERNESTINE MCGILL CRNA October 29, 2016 10:41
[2016-10-29] MEDS ORDERED: ACET1TAB12 PO (10:44)
[2016-10-29] MEDS ORDERED: CEPH-583 PO (10:44)
[2016-10-29] MEDS ORDERED: ONDANSETRON 4mg/2ml INJECTION IV PRN (10:45)
[2016-10-29] MEDS ORDERED: ATROPINE 1mg/10ml Syringe IV PRN (10:45)
[2016-10-29] MEDS ORDERED: HYDROCODONE/APAP 5 mg/325 mg TABLET PO PRN (10:45)
--- NOTE | 2016-10-29 16:17 | OPNOTEF ---
DATE OF SURGERY October 29, [address] Dominguez PREOPERATIVE DIAGNOSIS Basal cell carcinoma, left frontal scalp. POSTOPERATIVE DIAGNOSIS Basal cell carcinoma, left frontal scalp. PROCEDURE Excision of basal cell carcinoma, left frontal scalp with frozen-section guidance of margins and complex closure. Lesion size was 1.3 cm, excision size 2.3 cm, final defect 3.1 cm. ANESTHESIA MAC. INDICATIONS The patient is a 80-year-old male who was referred by Dr. Banks for evaluation and management of a biopsy-proven basal cell carcinoma of the left scalp. The lesion had been present for about a year but had recently started to bleed. He had seen Dr. Banks and a punch biopsy was done which revealed a basal cell carcinoma. On exam, he had a 1.3-cm pearly lesion with telangiectasia and brown pigment of the left frontal scalp. In detailed discussion with the patient preoperatively, the risks, benefits and alternatives of excision of the lesion with frozen-section guidance of margins and closure were reviewed including, although not limited to, bleeding, infection, poor or keloid scarring, partial and/or complete loss of the flap and/or graft, residual and/or recurrent disease. The patient understood and wished to proceed. PROCEDURE The patient was marked preoperatively and then, after suitable IV sedation, the scalp was prepped and draped in the usual sterile manner. The area was then infiltrated with 1% lidocaine with epinephrine. Of note, he received 1 g Ancef preoperatively and wore sequential stockings throughout. First, the lesion was excised and handed off as a specimen with the tag at the 12 o'clock margin. Frozen section pathologic diagnosis revealed basal cell carcinoma with clear margins. He was then brought to the operating room and again prepped and draped in the usual sterile manner. The wound was undermined and dog ears were removed. It was then closed in one layer using interrupted 3-0 nylon. Bacitracin and a dry sterile dressing were applied. The patient was then brought to the recovery room in stable condition. Estimated blood loss was 30 mL. The case was clean. Specimen was a basal cell carcinoma of the left frontal scalp. [facility]
== END 2016-10-29 12:05 | disposition home or self-care (01) ==
LOC: SCU 07:45
PROVIDERS: ATTEND Surgery Plastic and Reconstructive Surgery
DX: C44.41 Basal cell carcinoma of skin of scalp and neck (principal)
CPT/HCPCS: 11623; 13121; 36415; 80048; 88305; 88331; 88332; J0690; J2250; J3010; J7120

== ENCOUNTER 2017-08-12 10:31 | Inpatient (IN) ==
--- NOTE | 2017-08-12 10:42 | Emergency Department Report ---
SOB HPI - General Chief Complaint: Shortness of Breath/Dyspnea Stated Complaint: TAHIR TORRES Time Seen by Provider: 08/12/17 10:40 - History of Present Illness 81-year-old male brought in by EMS, code red with respiratory distress. He fell by his kitchen table and may have passed out. He suddenly became short of breath with chest pressure. Very lightheaded and weak even on recovery from the initial event. EMS was contacted and transported him in. On arrival he is diaphoretic and complaining of chest pain. He was at home when he suddenly became very weak, developed chest pain and shortness of breath. He states he has never felt like this. He is relatively lethargic, lying back on the bed. Willing to answer questions, but obviously exhausted. 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 He takes baby aspirin, no other blood thinners. He thinks he may have lost control of his bowels when he passed out. This is not a normal occurrence for him. noone else at home has been sick. - Related Data Home Medications Medication Instructions Recorded Confirmed Amlodipine [Norvasc] 5 mg PO DAILY 08/12/17 08/12/17 Aspirin [Adult Aspirin Regimen] 81 mg PO DAILY 08/12/17 08/12/17 Fexofenadine/Pseudoephedrine 1 each PO DAILY PRN 08/12/17 08/12/17 [Rowan-D 24 Hour Tablet] Lisinopril [Prinivil] 20 mg PO DAILY 08/12/17 08/12/17 Pantoprazole Tab [Protonix Tab] 40 mg PO BID 08/12/17 08/12/17 Propranolol LA [Inderal LA] 80 mg PO Q2D 08/12/17 08/12/17 Previous Rx's Medication Instructions Recorded Inderal LA (propranolol ER) 120 mg 120 mg PO DAILY #90 cap 06/30/17 capsule,24 hr Zestoretic (lisinopril 20 1 tab PO DAILY #90 tab 06/30/17 mg-hydrochlorothiazide 25 mg) tablet Acetaminophen [Tylenol] 650 mg PO Q5H PRN tab 08/14/17 Fluticasone Nasal Jonancy [Flonase] 2 spray EA NOSTRIL DAILY bottle 08/14/17 Loperamide [Imodium] 2 mg PO PRN PRN cap 08/14/17 Allergies Allergy/AdvReac Type Severity Reaction Status Date / Time No Known Drug Allergies Allergy Unknown Verified 12/09/16 10:54 Review of Systems All systems: reviewed and negative except as stated PFSH Patient Stated Medical History Transient Ischemic Attacks ( Yes: POSSIBLY TIA) Cataracts Yes Cardiac Arrhythmia Yes: BRADYCARDIA - RESULTED IN [employer]AC[employer] Hypertension Yes Sleep Apnea Yes Gastroesophageal Reflux Yes Disease Clinic Medical History (Last Reviewed 12/09/16 @ 10:55 by Paola Grant RN) BCC (basal cell carcinoma of skin) (Resolved Medical) HTN (hypertension) (Acute Medical) GERD (gastroesophageal reflux disease) (Acute Medical) Migraine headache (Chronic Medical) Obstructive sleep apnea (Chronic Medical) Osteoarthritis (Chronic Medical) Tremor (Chronic Medical) Bronchitis (Resolved Medical) Cataracts, bilateral (Resolved Medical) Colon polyps (Resolved Medical) Surgical History: Excision of BCC L frontal scalp with complex closure: . Bilateral cataract removal. Colonoscopy with polypectomy Family History: Family History (Last Reviewed 12/09/16 @ 10:56 by Paola Grant RN) Mother Stroke HTN (hypertension) Arthritis Aneurysm Father Stroke Melanoma HTN (hypertension) Aneurysm Brother Diabetes mellitus Colon cancer - Social History Smoking status: Never smoker Substance use type: does not use Physical Exam - Limitations Limitations: altered mental status - General General appearance: lethargic, in distress - Normal Exams: Head:: Normocephalic without trauma Chest/Respirations:: Clear all wells, with good airflow, and symmetry bilaterally Cardiovascular:: Regular rate and rhythm, without murmur or gallop, Pulses 2+ all extremities, capillary refill, <2 seconds all extremities - Respiratory Respiratory exam: Present: normal lung sounds bilaterally - Cardiovascular Cardiovascular exam: Present: tachycardia. Absent: systolic murmur, diastolic murmur - Abdominal Exam Abdominal exam: Present: distention. Absent: tenderness, guarding, rebound, rigidity Course Vital Signs Pulse Rate 62 08/12/17 10:31 Respiratory Rate 21 08/12/17 10:31 Blood Pressure 166/68 H 08/12/17 10:31 Pulse Oximetry 100 08/12/17 10:31 Temperature 97.6 F 08/14/17 07:50 Pulse Rate 59 L 08/14/17 08:00 Respiratory Rate 18 08/14/17 07:50 Blood Pressure 169/78 H 08/14/17 07:50 Pulse Oximetry 95 08/14/17 07:50 Shortness of Breath/Dyspnea - [facility] Narrative Medical decision making narrative: Peripheral IV was started on transport by EMS. Patient was given a total of 3 L normal saline bolus throughout his ER visit before his heart rate slowed and blood pressure ry into an appropriate range. On arrival he appeared very mottled and became less coherent shortly after arrival also vomited times one and loss control of bowels again. Very foul-smelling stool, liquid and copious. My initial concern was that this may be cardiac despite the diarrhea. This was due mainly to his appearance.However, cardiology recommended full GI workup and he continued to have repeat explosive diarrhea with negative cardiac labs. Labs reviewed showing elevated sodium and creat. Stool PCR returned negative. DDimer elevated at [address] angio neg. Rectal tube placed after approx the 6th episode of diarrhea while in ED. Pt admitted to hospitalist for continued hydration and support. - Medical Records Attestation: I reviewed the patient's medical records. - Lab Data Attestation: I reviewed the patient's lab results. Result diagrams: 08/14/17 05:55 08/14/17 05:55 Lab Results 08/12/17 08/12/17 08/12/17 Range/Units 11:13 11:13 11:13 WBC 11.3 H (4.5-11.0) T/MM3 RBC 6.60 H (4.50-5.90) M/MM3 Hgb 18.8 H (13.5-17.5) GM/DL Hct 56.1 H (41-53) % MCV 85.0 (80-100) UM3 MCH 28.5 (26-34) UUG MCHC 33.5 (31-37) GM/DL RDW Std Deviation 43.8 (36.9-50.2) FL Plt Count 312 (130-400) T/MM3 MPV 11.0 (9.4-12.4) UM3 Immature Gran % (Auto) 0.3 (0.0-0.5) % Neut % (Auto) 78.4 H (33-66) % Lymph % (Auto) 16.8 L (23-45) % [place] % (Auto) 2.8 (0-9.0) % Eos % (Auto) 1.5 (0-4) % Baso % (Auto) 0.2 (0-2) % Neut # (Auto) 8.9 H (1.8-7.7) T/MM3 Lymph # (Auto) 1.9 (1-4.8) T/MM3 [place] # (Auto) 0.3 (0-0.8) T/MM3 Eos # (Auto) 0.2 (0-0.5) T/MM3 Baso # (Auto) 0.0 (0-0.2) T/MM3 Abs Immat Gran (auto) 0.03 (0.00-0.03) T/MM3 Neutrophils % (Manual) (33-66) % Band Neutrophils % (0-6) % Lymphocytes % (Manual) (23-45) % Monocytes % (Manual) (0-9.0) % Neutrophils # (Manual) (1.8-7.7) T/MM3 Band Neutrophils # T/MM3 Lymphocytes # (Manual) (1-4.8) T/MM3 Monocytes # (Manual) (0-0.8) T/MM3 Poikilocytosis Tear Drop Cells RBC Morph Comment D-Dimer 3595 H (0-230) NG/ML Turbidity < 20 (0-20) Sodium 146 H (134-144) MEQ/L Potassium 3.5 L (3.6-5) MEQ/L Chloride 107 (98-107) MEQ/L Carbon Dioxide 23 (22-30) MEQ/L Anion Gap 16 H (5-15) MEQ/L BUN 16.0 (9-20) MG/DL Creatinine 1.1 (0.8-1.5) MG/DL GFR Calculation 65 BUN/Creatinine Ratio 15 (6-26) RATIO Glucose 164 H (75-110) MG/DL Calculated Osmolality 286 H (261-280) MOSM/KG Calcium 8.8 (8.4-10.2) MG/DL Phosphorus (2.5-4.5) MG/DL Magnesium (1.6-2.3) MG/DL Total Bilirubin 1.70 H (0.20-1.30) MG/DL Icterus Index < 2 (0-7) AST 21 (17-59) U/L ALT 22 (21-72) U/L Alkaline Phosphatase 81 (38-126) U/L Troponin I < 0.012 (0-0.12) ng/ml B-Natriuretic Peptide 1340 H (0-175) pg/mL Total Protein 7.2 (6.3-8.2) G/DL Albumin 4.0 (3.5-5.0) G/DL Globulin 3.2 (2.4-3.6) G/DL Albumin/Globulin Ratio 1.3 (1.1-2.2) RATIO Plasma Lactate (0.6-2.2) MMOL/L Procalcitonin NG/ML Specimen Hemolysis < 15 (0-25) Ur Collection Type Urine Color (YELLOW) Urine Clarity Urine pH (5.0-8.0) Ur Specific [place] (1.015-1.025) Urine Protein (NEGATIVE) Urine Glucose (UA) (NEGATIVE) Urine Ketones (NEGATIVE) Urine Occult Blood (NEGATIVE) Urine Nitrate (NEGATIVE) Urine Bilirubin (NEGATIVE) Urine Urobilinogen (NORMAL) EU/DL Ur Leukocyte Esterase (NEGATIVE) Urine RBC (0-3) /HPF Urine WBC (0-5) /HPF Urine Bacteria (NEGATIVE) Granular Casts Ur Culture Indicated? Stool Occult Blood Stool for White Cells (Negative) Stl Cyclospora species (Negative) Stool Rotavirus A PCR (Negative) Stool Adenovirus (PCR) (Negative) Stool Astrovirus (PCR) (Negative) Stool Campylobacter PCR (Negative) Stl C.difficile Tox PCR (Negative) Stool Cryptosporidium PCR (Negative) Stl E.coli Shiga Toxins (Negative) Stl Enterotoxigenic E PCR (Negative) Stool EPEC (PCR) (Negative) Stool EAEC (PCR) (Negative) Stool Entamoeba (PCR) (Negative) Stool Giardia Lamblia PCR (Negative) Stool Salmonella PCR (Negative) Stool Sapovirus (PCR) (Negative) Stl P. shigelloides PCR (Negative) Stl Shigella/EIEC PCR (Negative) St Y.enterocolitica PCR (Negative) Stool Vibrio (PCR) (Negative) Stl Vibrio cholera PCR (Negative) Stl Norovirus GI/GII PCR (Negative) 08/12/17 08/12/17 08/12/17 Range/Units 11:24 12:00 13:40 WBC (4.5-11.0) T/MM3 RBC (4.50-5.90) M/MM3 Hgb (13.5-17.5) GM/DL Hct (41-53) % MCV (80-100) UM3 MCH (26-34) UUG MCHC (31-37) GM/DL RDW Std Deviation (36.9-50.2) FL Plt Count (130-400) T/MM3 MPV (9.4-12.4) UM3 Immature Gran % (Auto) (0.0-0.5) % Neut % (Auto) (33-66) % Lymph % (Auto) (23-45) % [place] % (Auto) (0-9.0) % Eos % (Auto) (0-4) % Baso % (Auto) (0-2) % Neut # (Auto) (1.8-7.7) T/MM3 Lymph # (Auto) (1-4.8) T/MM3 [place] # (Auto) (0-0.8) T/MM3 Eos # (Auto) (0-0.5) T/MM3 Baso # (Auto) (0-0.2) T/MM3 Abs Immat Gran (auto) (0.00-0.03) T/MM3 Neutrophils % (Manual) (33-66) % Band Neutrophils % (0-6) % Lymphocytes % (Manual) (23-45) % Monocytes % (Manual) (0-9.0) % Neutrophils # (Manual) (1.8-7.7) T/MM3 Band Neutrophils # T/MM3 Lymphocytes # (Manual) (1-4.8) T/MM3 Monocytes # (Manual) (0-0.8) T/MM3 Poikilocytosis Tear Drop Cells RBC Morph Comment D-Dimer (0-230) NG/ML Turbidity (0-20) Sodium (134-144) MEQ/L Potassium (3.6-5) MEQ/L Chloride (98-107) MEQ/L Carbon Dioxide (22-30) MEQ/L Anion Gap (5-15) MEQ/L BUN (9-20) MG/DL Creatinine (0.8-1.5) MG/DL GFR Calculation BUN/Creatinine Ratio (6-26) RATIO Glucose (75-110) MG/DL Calculated Osmolality (261-280) MOSM/KG Calcium (8.4-10.2) MG/DL Phosphorus (2.5-4.5) MG/DL Magnesium (1.6-2.3) MG/DL Total Bilirubin (0.20-1.30) MG/DL Icterus Index (0-7) AST (17-59) U/L ALT (21-72) U/L Alkaline Phosphatase (38-126) U/L Troponin I 0.013 (0-0.12) ng/ml B-Natriuretic Peptide (0-175) pg/mL Total Protein (6.3-8.2) G/DL Albumin (3.5-5.0) G/DL Globulin (2.4-3.6) G/DL Albumin/Globulin Ratio (1.1-2.2) RATIO Plasma Lactate (0.6-2.2) MMOL/L Procalcitonin NG/ML Specimen Hemolysis 158 H (0-25) Ur Collection Type Urine Color (YELLOW) Urine Clarity Urine pH (5.0-8.0) Ur Specific [place] (1.015-1.025) Urine Protein (NEGATIVE) Urine Glucose (UA) (NEGATIVE) Urine Ketones (NEGATIVE) Urine Occult Blood (NEGATIVE) Urine Nitrate (NEGATIVE) Urine Bilirubin (NEGATIVE) Urine Urobilinogen (NORMAL) EU/DL Ur Leukocyte Esterase (NEGATIVE) Urine RBC (0-3) /HPF Urine WBC (0-5) /HPF Urine Bacteria (NEGATIVE) Granular Casts Ur Culture Indicated? Stool Occult Blood Negative Stool for White Cells Negative (Negative) Stl Cyclospora species Negative (Negative) Stool Rotavirus A PCR Negative (Negative) Stool Adenovirus (PCR) Negative (Negative) Stool Astrovirus (PCR) Negative (Negative) Stool Campylobacter PCR Negative (Negative) Stl C.difficile Tox PCR Negative (Negative) Stool Cryptosporidium PCR Negative (Negative) Stl E.coli Shiga Toxins Negative (Negative) Stl Enterotoxigenic E PCR Negative (Negative) Stool EPEC (PCR) Negative (Negative) Stool EAEC (PCR) Negative (Negative) Stool Entamoeba (PCR) Negative (Negative) Stool Giardia Lamblia PCR Negative (Negative) Stool Salmonella PCR Negative (Negative) Stool Sapovirus (PCR) Negative (Negative) Stl P. shigelloides PCR Negative (Negative) Stl Shigella/EIEC PCR Negative (Negative) St Y.enterocolitica PCR Negative (Negative) Stool Vibrio (PCR) Negative (Negative) Stl Vibrio cholera PCR Negative (Negative) Stl Norovirus GI/GII PCR Negative (Negative) 08/12/17 08/12/17 08/12/17 Range/Units 14:57 18:47 18:53 WBC (4.5-11.0) T/MM3 RBC (4.50-5.90) M/MM3 Hgb (13.5-17.5) GM/DL Hct (41-53) % MCV (80-100) UM3 MCH (26-34) UUG MCHC (31-37) GM/DL RDW Std Deviation (36.9-50.2) FL Plt Count (130-400) T/MM3 MPV (9.4-12.4) UM3 Immature Gran % (Auto) (0.0-0.5) % Neut % (Auto) (33-66) % Lymph % (Auto) (23-45) % [place] % (Auto) (0-9.0) % Eos % (Auto) (0-4) % Baso % (Auto) (0-2) % Neut # (Auto) (1.8-7.7) T/MM3 Lymph # (Auto) (1-4.8) T/MM3 [place] # (Auto) (0-0.8) T/MM3 Eos # (Auto) (0-0.5) T/MM3 Baso # (Auto) (0-0.2) T/MM3 Abs Immat Gran (auto) (0.00-0.03) T/MM3 Neutrophils % (Manual) (33-66) % Band Neutrophils % (0-6) % Lymphocytes % (Manual) (23-45) % Monocytes % (Manual) (0-9.0) % Neutrophils # (Manual) (1.8-7.7) T/MM3 Band Neutrophils # T/MM3 Lymphocytes # (Manual) (1-4.8) T/MM3 Monocytes # (Manual) (0-0.8) T/MM3 Poikilocytosis Tear Drop Cells RBC Morph Comment D-Dimer (0-230) NG/ML Turbidity (0-20) Sodium (134-144) MEQ/L Potassium (3.6-5) MEQ/L Chloride (98-107) MEQ/L Carbon Dioxide (22-30) MEQ/L Anion Gap (5-15) MEQ/L BUN (9-20) MG/DL Creatinine (0.8-1.5) MG/DL GFR Calculation BUN/Creatinine Ratio (6-26) RATIO Glucose (75-110) MG/DL Calculated Osmolality (261-280) MOSM/KG Calcium (8.4-10.2) MG/DL Phosphorus (2.5-4.5) MG/DL Magnesium 1.7 (1.6-2.3) MG/DL Total Bilirubin (0.20-1.30) MG/DL Icterus Index (0-7) AST (17-59) U/L ALT (21-72) U/L Alkaline Phosphatase (38-126) U/L Troponin I 0.014 (0-0.12) ng/ml B-Natriuretic Peptide (0-175) pg/mL Total Protein (6.3-8.2) G/DL Albumin (3.5-5.0) G/DL Globulin (2.4-3.6) G/DL Albumin/Globulin Ratio (1.1-2.2) RATIO Plasma Lactate 2.7 H 3.3 H (0.6-2.2) MMOL/L Procalcitonin NG/ML Specimen Hemolysis < 15 (0-25) Ur Collection Type Urine Color (YELLOW) Urine Clarity Urine pH (5.0-8.0) Ur Specific [place] (1.015-1.025) Urine Protein (NEGATIVE) Urine Glucose (UA) (NEGATIVE) Urine Ketones (NEGATIVE) Urine Occult Blood (NEGATIVE) Urine Nitrate (NEGATIVE) Urine Bilirubin (NEGATIVE) Urine Urobilinogen (NORMAL) EU/DL Ur Leukocyte Esterase (NEGATIVE) Urine RBC (0-3) /HPF Urine WBC (0-5) /HPF Urine Bacteria (NEGATIVE) Granular Casts Ur Culture Indicated? Stool Occult Blood Positive A Stool for White Cells (Negative) Stl Cyclospora species (Negative) Stool Rotavirus A PCR (Negative) Stool Adenovirus (PCR) (Negative) Stool Astrovirus (PCR) (Negative) Stool Campylobacter PCR (Negative) Stl C.difficile Tox PCR (Negative) Stool Cryptosporidium PCR (Negative) Stl E.coli Shiga Toxins (Negative) Stl Enterotoxigenic E PCR (Negative) Stool EPEC (PCR) (Negative) Stool EAEC (PCR) (Negative) Stool Entamoeba (PCR) (Negative) Stool Giardia Lamblia PCR (Negative) Stool Salmonella PCR (Negative) Stool Sapovirus (PCR) (Negative) Stl P. shigelloides PCR (Negative) Stl Shigella/EIEC PCR (Negative) St Y.enterocolitica PCR (Negative) Stool Vibrio (PCR) (Negative) Stl Vibrio cholera PCR (Negative) Stl Norovirus GI/GII PCR (Negative) 08/12/17 08/13/17 08/13/17 Range/Units 20:44 02:29 02:30 WBC 18.0 H D (4.5-11.0) T/MM3 RBC 5.19 (4.50-5.90) M/MM3 Hgb 15.7 D 15.1 (13.5-17.5) GM/DL Hct 45.1 D (41-53) % MCV 86.9 (80-100) UM3 MCH 29.1 (26-34) UUG MCHC 33.5 (31-37) GM/DL RDW Std Deviation 43.8 (36.9-50.2) FL Plt Count 211 (130-400) T/MM3 MPV 11.5 (9.4-12.4) UM3 Immature Gran % (Auto) Not performed (0.0-0.5) % Neut % (Auto) Not performed (33-66) % Lymph % (Auto) Not performed (23-45) % [place] % (Auto) Not performed (0-9.0) % Eos % (Auto) Not performed (0-4) % Baso % (Auto) Not performed (0-2) % Neut # (Auto) Not performed (1.8-7.7) T/MM3 Lymph # (Auto) Not performed (1-4.8) T/MM3 [place] # (Auto) Not performed (0-0.8) T/MM3 Eos # (Auto) Not performed (0-0.5) T/MM3 Baso # (Auto) Not performed (0-0.2) T/MM3 Abs Immat Gran (auto) Not performed (0.00-0.03) T/MM3 Neutrophils % (Manual) 65.0 (33-66) % Band Neutrophils % 4.0 (0-6) % Lymphocytes % (Manual) 19.0 L (23-45) % Monocytes % (Manual) 12.0 H (0-9.0) % Neutrophils # (Manual) 11.7 H (1.8-7.7) T/MM3 Band Neutrophils # 0.7 T/MM3 Lymphocytes # (Manual) 3.4 (1-4.8) T/MM3 Monocytes # (Manual) 2.2 H (0-0.8) T/MM3 Poikilocytosis 1+ Tear Drop Cells 1+ RBC Morph Comment Abnormal D-Dimer (0-230) NG/ML Turbidity < 20 (0-20) Sodium 142 (134-144) MEQ/L Potassium 4.3 D (3.6-5) MEQ/L Chloride 105 (98-107) MEQ/L Carbon Dioxide 26 (22-30) MEQ/L Anion Gap 11 (5-15) MEQ/L BUN 25.0 H D (9-20) MG/DL Creatinine 1.6 H D (0.8-1.5) MG/DL GFR Calculation 42 BUN/Creatinine Ratio 16 (6-26) RATIO Glucose 113 H (75-110) MG/DL Calculated Osmolality 278 (261-280) MOSM/KG Calcium 8.4 (8.4-10.2) MG/DL Phosphorus (2.5-4.5) MG/DL Magnesium (1.6-2.3) MG/DL Total Bilirubin 1.10 (0.20-1.30) MG/DL Icterus Index < 2 (0-7) AST 14 L (17-59) U/L ALT 26 (21-72) U/L Alkaline Phosphatase 55 D (38-126) U/L Troponin I 0.014 (0-0.12) ng/ml B-Natriuretic Peptide (0-175) pg/mL Total Protein 6.0 L (6.3-8.2) G/DL Albumin 3.0 L (3.5-5.0) G/DL Globulin 3.0 (2.4-3.6) G/DL Albumin/Globulin Ratio 1.0 L (1.1-2.2) RATIO Plasma Lactate (0.6-2.2) MMOL/L Procalcitonin NG/ML Specimen Hemolysis < 15 (0-25) Ur Collection Type Urine Color (YELLOW) Urine Clarity Urine pH (5.0-8.0) Ur Specific [place] (1.015-1.025) Urine Protein (NEGATIVE) Urine Glucose (UA) (NEGATIVE) Urine Ketones (NEGATIVE) Urine Occult Blood (NEGATIVE) Urine Nitrate (NEGATIVE) Urine Bilirubin (NEGATIVE) Urine Urobilinogen (NORMAL) EU/DL Ur Leukocyte Esterase (NEGATIVE) Urine RBC (0-3) /HPF Urine WBC (0-5) /HPF Urine Bacteria (NEGATIVE) Granular Casts Ur Culture Indicated? Stool Occult Blood Stool for White Cells (Negative) Stl Cyclospora species (Negative) Stool Rotavirus A PCR (Negative) Stool Adenovirus (PCR) (Negative) Stool Astrovirus (PCR) (Negative) Stool Campylobacter PCR (Negative) Stl C.difficile Tox PCR (Negative) Stool Cryptosporidium PCR (Negative) Stl E.coli Shiga Toxins (Negative) Stl Enterotoxigenic E PCR (Negative) Stool EPEC (PCR) (Negative) Stool EAEC (PCR) (Negative) Stool Entamoeba (PCR) (Negative) Stool Giardia Lamblia PCR (Negative) Stool Salmonella PCR (Negative) Stool Sapovirus (PCR) (Negative) Stl P. shigelloides PCR (Negative) Stl Shigella/EIEC PCR (Negative) St Y.enterocolitica PCR (Negative) Stool Vibrio (PCR) (Negative) Stl Vibrio cholera PCR (Negative) Stl Norovirus GI/GII PCR (Negative) 08/13/17 08/13/17 08/13/17 Range/Units 02:30 04:32 08:56 WBC (4.5-11.0) T/MM3 RBC (4.50-5.90) M/MM3 Hgb (13.5-17.5) GM/DL Hct (41-53) % MCV (80-100) UM3 MCH (26-34) UUG MCHC (31-37) GM/DL RDW Std Deviation (36.9-50.2) FL Plt Count (130-400) T/MM3 MPV (9.4-12.4) UM3 Immature Gran % (Auto) (0.0-0.5) % Neut % (Auto) (33-66) % Lymph % (Auto) (23-45) % [place] % (Auto) (0-9.0) % Eos % (Auto) (0-4) % Baso % (Auto) (0-2) % Neut # (Auto) (1.8-7.7) T/MM3 Lymph # (Auto) (1-4.8) T/MM3 [place] # (Auto) (0-0.8) T/MM3 Eos # (Auto) (0-0.5) T/MM3 Baso # (Auto) (0-0.2) T/MM3 Abs Immat Gran (auto) (0.00-0.03) T/MM3 Neutrophils % (Manual) (33-66) % Band Neutrophils % (0-6) % Lymphocytes % (Manual) (23-45) % Monocytes % (Manual) (0-9.0) % Neutrophils # (Manual) (1.8-7.7) T/MM3 Band Neutrophils # T/MM3 Lymphocytes # (Manual) (1-4.8) T/MM3 Monocytes # (Manual) (0-0.8) T/MM3 Poikilocytosis Tear Drop Cells RBC Morph Comment D-Dimer (0-230) NG/ML Turbidity (0-20) Sodium (134-144) MEQ/L Potassium (3.6-5) MEQ/L Chloride (98-107) MEQ/L Carbon Dioxide (22-30) MEQ/L Anion Gap (5-15) MEQ/L BUN (9-20) MG/DL Creatinine (0.8-1.5) MG/DL GFR Calculation BUN/Creatinine Ratio (6-26) RATIO Glucose (75-110) MG/DL Calculated Osmolality (261-280) MOSM/KG Calcium (8.4-10.2) MG/DL Phosphorus (2.5-4.5) MG/DL Magnesium (1.6-2.3) MG/DL Total Bilirubin (0.20-1.30) MG/DL Icterus Index (0-7) AST (17-59) U/L ALT (21-72) U/L Alkaline Phosphatase (38-126) U/L Troponin I (0-0.12) ng/ml B-Natriuretic Peptide (0-175) pg/mL Total Protein (6.3-8.2) G/DL Albumin (3.5-5.0) G/DL Globulin (2.4-3.6) G/DL Albumin/Globulin Ratio (1.1-2.2) RATIO Plasma Lactate 1.0 (0.6-2.2) MMOL/L Procalcitonin 13.47 H* NG/ML Specimen Hemolysis (0-25) Ur Collection Type Urine, void-cc/notcc Urine Color Brown (YELLOW) Urine Clarity Sl cloudy Urine pH 5.0 (5.0-8.0) Ur Specific [place] <=1.005 L (1.015-1.025) Urine Protein 1+ A (NEGATIVE) Urine Glucose (UA) Negative (NEGATIVE) Urine Ketones Trace A (NEGATIVE) Urine Occult Blood Trace-intact (NEGATIVE) Urine Nitrate Positive A (NEGATIVE) Urine Bilirubin 2+ A (NEGATIVE) Urine Urobilinogen 2.0 (NORMAL) EU/DL Ur Leukocyte Esterase Negative (NEGATIVE) Urine RBC 1-3 (0-3) /HPF Urine WBC 0-1 (0-5) /HPF Urine Bacteria Trace H (NEGATIVE) Granular Casts 0-1 Ur Culture Indicated? Cult reflexed &setup Stool Occult Blood Stool for White Cells (Negative) Stl Cyclospora species (Negative) Stool Rotavirus A PCR (Negative) Stool Adenovirus (PCR) (Negative) Stool Astrovirus (PCR) (Negative) Stool Campylobacter PCR (Negative) Stl C.difficile Tox PCR (Negative) Stool Cryptosporidium PCR (Negative) Stl E.coli Shiga Toxins (Negative) Stl Enterotoxigenic E PCR (Negative) Stool EPEC (PCR) (Negative) Stool EAEC (PCR) (Negative) Stool Entamoeba (PCR) (Negative) Stool Giardia Lamblia PCR (Negative) Stool Salmonella PCR (Negative) Stool Sapovirus (PCR) (Negative) Stl P. shigelloides PCR (Negative) Stl Shigella/EIEC PCR (Negative) St Y.enterocolitica PCR (Negative) Stool Vibrio (PCR) (Negative) Stl Vibrio cholera PCR (Negative) Stl Norovirus GI/GII PCR (Negative) 08/14/17 08/14/17 Range/Units 05:55 05:55 WBC 12.0 H (4.5-11.0) T/MM3 RBC 4.72 (4.50-5.90) M/MM3 Hgb 13.6 (13.5-17.5) GM/DL Hct 41.4 (41-53) % MCV 87.7 (80-100) UM3 MCH 28.8 (26-34) UUG MCHC 32.9 (31-37) GM/DL RDW Std Deviation 44.0 (36.9-50.2) FL Plt Count 160 (130-400) T/MM3 MPV 11.4 (9.4-12.4) UM3 Immature Gran % (Auto) 0.2 (0.0-0.5) % Neut % (Auto) 69.2 H (33-66) % Lymph % (Auto) 20.2 L (23-45) % [place] % (Auto) 7.6 (0-9.0) % Eos % (Auto) 2.5 (0-4) % Baso % (Auto) 0.3 (0-2) % Neut # (Auto) 8.3 H (1.8-7.7) T/MM3 Lymph # (Auto) 2.4 (1-4.8) T/MM3 [place] # (Auto) 0.9 H (0-0.8) T/MM3 Eos # (Auto) 0.3 (0-0.5) T/MM3 Baso # (Auto) 0.0 (0-0.2) T/MM3 Abs Immat Gran (auto) 0.02 (0.00-0.03) T/MM3 Neutrophils % (Manual) (33-66) % Band Neutrophils % (0-6) % Lymphocytes % (Manual) (23-45) % Monocytes % (Manual) (0-9.0) % Neutrophils # (Manual) (1.8-7.7) T/MM3 Band Neutrophils # T/MM3 Lymphocytes # (Manual) (1-4.8) T/MM3 Monocytes # (Manual) (0-0.8) T/MM3 Poikilocytosis Tear Drop Cells RBC Morph Comment D-Dimer (0-230) NG/ML Turbidity < 20 (0-20) Sodium 148 H D (134-144) MEQ/L Potassium 3.7 (3.6-5) MEQ/L Chloride 111 H (98-107) MEQ/L Carbon Dioxide 26 (22-30) MEQ/L Anion Gap 11 (5-15) MEQ/L BUN 19.0 (9-20) MG/DL Creatinine 1.0 D (0.8-1.5) MG/DL GFR Calculation 72 BUN/Creatinine Ratio 19 (6-26) RATIO Glucose 98 (75-110) MG/DL Calculated Osmolality 286 H (261-280) MOSM/KG Calcium 8.7 (8.4-10.2) MG/DL Phosphorus 2.9 (2.5-4.5) MG/DL Magnesium 1.8 (1.6-2.3) MG/DL Total Bilirubin (0.20-1.30) MG/DL Icterus Index < 2 (0-7) AST (17-59) U/L ALT (21-72) U/L Alkaline Phosphatase (38-126) U/L Troponin I (0-0.12) ng/ml B-Natriuretic Peptide (0-175) pg/mL Total Protein (6.3-8.2) G/DL Albumin 3.4 L (3.5-5.0) G/DL Globulin (2.4-3.6) G/DL Albumin/Globulin Ratio (1.1-2.2) RATIO Plasma Lactate (0.6-2.2) MMOL/L Procalcitonin NG/ML Specimen Hemolysis < 15 (0-25) Ur Collection Type Urine Color (YELLOW) Urine Clarity Urine pH (5.0-8.0) Ur Specific [place] (1.015-1.025) Urine Protein (NEGATIVE) Urine Glucose (UA) (NEGATIVE) Urine Ketones (NEGATIVE) Urine Occult Blood (NEGATIVE) Urine Nitrate (NEGATIVE) Urine Bilirubin (NEGATIVE) Urine Urobilinogen (NORMAL) EU/DL Ur Leukocyte Esterase (NEGATIVE) Urine RBC (0-3) /HPF Urine WBC (0-5) /HPF Urine Bacteria (NEGATIVE) Granular Casts Ur Culture Indicated? Stool Occult Blood Stool for White Cells (Negative) Stl Cyclospora species (Negative) Stool Rotavirus A PCR (Negative) Stool Adenovirus (PCR) (Negative) Stool Astrovirus (PCR) (Negative) Stool Campylobacter PCR (Negative) Stl C.difficile Tox PCR (Negative) Stool Cryptosporidium PCR (Negative) Stl E.coli Shiga Toxins (Negative) Stl Enterotoxigenic E PCR (Negative) Stool EPEC (PCR) (Negative) Stool EAEC (PCR) (Negative) Stool Entamoeba (PCR) (Negative) Stool Giardia Lamblia PCR (Negative) Stool Salmonella PCR (Negative) Stool Sapovirus (PCR) (Negative) Stl P. shigelloides PCR (Negative) Stl Shigella/EIEC PCR (Negative) St Y.enterocolitica PCR (Negative) Stool Vibrio (PCR) (Negative) Stl Vibrio cholera PCR (Negative) Stl Norovirus GI/GII PCR (Negative) - Radiology Data Attestation: I reviewed the patient's radiology results. Disposition Clinical Impression: DEHYDRATION, Diarrhea Disposition: 02 To [facility] Condition: Stable Time of Disposition: 13:18 - Seen By: physician
[2017-08-12] MEDS ORDERED: ONDANSETRON 4 MG/2 ML INJECTION IVP ONE (10:58)
[2017-08-12] MEDS ORDERED: PROMETHAZINE 25 MG INJECTION IVP ONE (11:24)
[2017-08-12] MEDS: NS 1,000 ML IV SCH ×2 (11:28→15:46)
[2017-08-12] MEDS: SALINE FLUSH 10ml SYRINGE IVF PRN ×2 (11:32→18:15)
--- NOTE | 2017-08-12 11:37 | XRay Report ---
Indication: chest pain PROCEDURE: XR chest 1V: Encounter: Initial Comparison: 11/05/2016 Findings: The lungs are stable in appearance without new focal airspace consolidation. There is no pleural effusion or pneumothorax. The heart size, pulmonary vascularity and mediastinal contours are unchanged. Dual-lead left pacemaker is new. IMPRESSION: No acute cardiopulmonary disease. .
[2017-08-12] MEDS ORDERED: IOHEXOL 350mg/ml 100ml INJECTION ONE (11:43)
[2017-08-12] MEDS ORDERED: SALINE FLUSH 10ml SYRINGE ONE (11:44)
--- OUTSIDE RECORDS SUMMARY | 2017-08-12 11:47 | External Medical Summary | Summary of Care ---
:1935 Author Name Lul Argueta M.D. Address [address] [place] [address] [place] [address] Care Team Providers Name Role Phone Mason Banks Unavailable Unavailable Functional Status Functional Status Health Issues Name Dates Details Functional status health issues are not documented Status: Cognitive Status Health Issues Name Dates Details Cognitive status health issues [...] TAKE 1 CAPSULE TWICE DAILY. Quantity: 60 Refills: 3 Start 08-Feb-2013 Active Fexofenadine HCl - 180 MG Oral Tablet TAKE 1/2 TABLET DAILY Refills: 0 Start 08-Feb-2013 Active Lisinopril 20 MG Oral Tablet TAKE 1 TABLET DAILY. Refills: 0 Start 08-Feb-2013 Active Lisinopril-Hydrochlorothiazide 20-25 MG Oral Tablet Refills: 0 Start 08-Feb-2013 Active Pantoprazole Sodium 40 MG Oral Tablet Delayed Release TAKE 1 TABLET DAILY. Quantity: 30 Refills: 12 Start 08-Feb-2013 Active Meloxicam 7.5 MG Oral Tablet 10mg, patient is using this medicine as a research drug for arthritis Refills: 0 Start 08-Feb-2013 Active Aspirin 81 MG TABS TAKE 1 TABLET DAILY. Refills: 0 Start 08-Feb-2013 Active Allergies and Adverse Reactions [...] Immunizations not documented Family History Unknown Family Member Name Dates Details No family history of breast cancer Comments: Other Status: Active No family history of kidney disease (V49.89, Z78.9) Comments: Family History Status: Active Family history of cerebrovascular accident (CVA) (V17.1, Z82.3) Comments: Family History Status: Active Mother Name Dates Details Family history of Mother At Age ____ Status: Active Family history of Hypertension (V17.49) Status: Active Father Name Dates Details Family history of Father At Age ____ Status: Active Family history of Hypertension (V17.49) Status: Active Family history of Stroke Syndrome (V17.1) Status: Active Social History Name Dates Details - Status: Smoking Status Name Dates Details Never smoker Vital Signs [...] not documented Encounters Appointment; Lul Argueta M.D. On 21-May-2016 Encounter Diagnosis: Problem not documented 13:30 Appointment; Gordon Ayoub M.D. On 19-Jul-2015 Encounter Diagnosis: Problem not documented 16:00 Appointment; Lul Argueta M.D. On 16-May-2015 Encounter Diagnosis: Problem not documented 14:00 Appointment; Gordon Ayoub M.D. On 20-Jul-2014 Encounter Diagnosis: Problem not documented 15:15
--- OUTSIDE RECORDS SUMMARY | 2017-08-12 11:47 | External Medical Summary | Summary of Care ---
:1935 Author Name Bibi Ayoub M.D. Address Unavailable Unavailable , Care Team Providers Name Role Phone Mega Hogan, Bibi Leyva Unavailable Unavailable Mason Banks Unavailable Unavailable Functional Status Functional [...] mg Inderal every other day. Quantity: 60 Refills: 3 Start 08-Feb-2013 Active [...] Quantity: 30 Refills: 12 Start 08-Feb-2013 Active Aspirin 81 MG TABS TAKE 1 TABLET DAILY. Refills: 0 Start 08-Feb-2013 Active Inderal LA 80 MG Oral Capsule Extended Release 24 Hour TAKE 1 CAPSULE Daily Alternate with 120mg every other day. Refills: 0 Start 17-Jul-2016 Active AmLODIPine Besylate 5 MG Oral Tablet TAKE 1 TABLET DAILY. Refills: 0 Start 17-Jul-2016 Active Allergies and Adverse Reactions [...]
--- OUTSIDE RECORDS SUMMARY | 2017-08-12 11:47 | External Medical Summary | Summary of Care ---
:1935 Author Name Lul Argueta M.D. Address [address] [place] [address] [place] [address] Care Team Providers Name Role Phone Carlito Arauz Primary Care Provider Unavailable Functional Status Functional Status Health Issues [...] CAPSULE TWICE DAILY. Quantity: 60 Refills: 3 Started 08-Feb-2013 ActiveFexofenadine HCl - 180 MG Oral Tablet TAKE 1/2 TABLET DAILY Refills: 0 Started 08-Feb-2013 ActiveLisinopril 20 MG Oral Tablet TAKE 1 TABLET DAILY. Refills: 0 Started 08-Feb-2013 ActiveLisinopril-Hydrochlorothiazide 20-25 MG Oral Tablet Refills: 0 Started 08-Feb-2013 ActivePantoprazole Sodium 40 MG Oral Tablet Delayed Release TAKE 1 TABLET DAILY. Quantity: 30 Refills: 12 Started 08-Feb-2013 ActiveMeloxicam 7.5 MG Oral Tablet 10mg, patient is using this medicine as a research drug for arthritis Refills: 0 Started 08-Feb-2013 ActiveAspirin 81 MG Oral Tablet TAKE 1 TABLET DAILY. Refills: 0 Started 08-Feb-2013 Active Allergies and Adverse Reactions [...] Active Social History Name Dates Details Smoking StatusNever smoker Vital Signs Date Test Result Details 16-May-2015 14:18 BP Systolic 140 mm[Hg] Status: BP Diastolic 78 mm[Hg] Status: Heart Rate 65 /min Status: Height 73 in Status: Weight 287 lb Status: Body Mass Index Calculated 37.87 kg/m2 Status: Body Surface Area Calculated 2.51 m2 Status: Results Date Description Value Details Results not documented Plan of Care Planned Observations Name Dates Details Planned Goals not documented Goal Planned Encounters Appointment; Provider: Lul Argueta On 21-May-2016 13:30 Appointment; Provider: Gordon Ayoub On 19-Jul-2015 16:00 Instructions Instructions not documented Encounters Appointment; Lul Argueta On 16-May-2015 Encounter Diagnosis: Problem not documented 14:00 Appointment; Gordon Ayoub On 20-Jul-2014 Encounter Diagnosis: Problem not documented 15:15 Appointment; Gordon Ayoub On 14-Feb-2014 Encounter Diagnosis: Problem not documented 14:15
--- OUTSIDE RECORDS SUMMARY | 2017-08-12 11:47 | External Medical Summary | Summary of Care ---
:1935 Author Name Lul Argueta M.D. Address [address] [place] [address] [place] [address] Care Team Providers Name Role Phone Lul Argueta M.D. Unavailable [...] Ayoub M.D. On 17-Jul-2016 16:00 Interventions Provided Labs/Procedures/ImagingPSA ( PROSTATE SPECIFIC ANTIGEN) 3100; To be Done: 21 May 2016 Instructions Name Dates Details Instructions not documented Encounters Appointment; Gordon Ayoub M.D. On 19-Jul-2015 Encounter Diagnosis: Problem not documented 16:00 Appointment; Lul Argueta M.D. On 16-May-2015 Encounter Diagnosis: Problem not documented 14:00 Appointment; Gordon Ayoub M.D. On 20-Jul-2014 Encounter Diagnosis: Problem not documented 15:15
--- OUTSIDE RECORDS SUMMARY | 2017-08-12 11:47 | External Medical Summary | Summary of Care ---
:1935 Author Name Bibi Ayoub M.D. Address [address] [place], [place] [id number] Care Team Providers Name Role Phone Carlito [...] Resection Of Prostate (TURP) Myasthenia Gravis Evaluation 646109 Ordered:19-Jul-2015 Immunization Name Dates Details Immunizations not [...] not documented Goal Planned Encounters Appointment; Provider: Gordon Ayoub On 17-Jul-2016 16:00 Appointment; Provider: Lul Argueta On 21-May-2016 13:30 Instructions Instructions not documented Encounters Appointment; Gordon Ayoub On 19-Jul-2015 Encounter Diagnosis: Problem not documented 16:00 Appointment; Lul Argueta On 16-May-2015 Encounter Diagnosis: Problem not documented 14:00 Appointment; Gordon Ayoub On 20-Jul-2014 Encounter Diagnosis: Problem not documented 15:15 Appointment; Gordon Ayoub On 14-Feb-2014 Encounter Diagnosis: Problem not documented 14:15
--- OUTSIDE RECORDS SUMMARY | 2017-08-12 11:47 | External Medical Summary ---
:1935 Author Organization [facility] Address [address] [place] [address] Care Team Providers Name Role Phone Adilson aRines Unavailable Unavailable PROBLEMS Type Condition ICD9-CM Code [id number] Onset Condition SNOMED Code Code Dates Status Problem Dyspnea on exertion 786.09 Active 58708136 Problem Sleep apnea G47.30 Active 77492787 Problem Pulmonary 416.9 Active 77310558 Hypertension, Chronic, Unspecified Problem Hypertension 401.9 Active 82705252 Problem Sleep Apnea 780.57 Active 25174381 Problem Bradycardia 427.89 Active 16176160 Problem Abnormal 794.30 Active 666537458 Cardiovascular Study Problem 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
--- OUTSIDE RECORDS SUMMARY | 2017-08-12 11:47 | External Medical Summary | Summary of Care ---
:1935 Author Name Lul Argueta M.D. Address [address] [place] [address] [place] [address] Care Team Providers Name Role Phone Llu Argueta M.D. Unavailable Unavailable Mason Banks Unavailable [...]
--- OUTSIDE RECORDS SUMMARY | 2017-08-12 11:47 | External Medical Summary ---
:1935 Author Organization [employer] Care Team Providers Name Role Phone Adilson Raines Provider Role Unavailable Allergies, Adverse Reactions, Alerts Substance Reaction Event Type N.K.D.A. Info Not Available Non Drug Allergy Problems Problem Type Condition Code Onset Dates Condition Status Problem Bradycardia 427.89 Active Problem Dyspnea on exertion 786.09 Active Problem Abnormal Cardiovascular Study 794.30 Active Problem Essential (primary) hypertension I10 Active Problem Dyspnea on exertion R06.09 Active Problem Venous insufficiency I87.2 Active Problem Sleep apnea G47.30 Active Problem Pulmonary Hypertension, Chronic, 416.9 Active Unspecified Problem Bradycardia R00.1 Active Problem Chronic pulmonary hypertension I27.2 Active Assessment Venous insufficiency I87.2 Active Assessment Essential (primary) hypertension I10 Active Assessment Bradycardia R00.1 Active Assessment Sleep apnea G47.30 Active Problem Hypertension 401.9 Active Assessment Chronic pulmonary hypertension I27.2 Active Problem Sleep Apnea 780.57 Active Medications Medication Code System Code Instructions Start End Date Status Dosage Date Pantoprazole [facility] 83378-53 40 MG Orally 1 tablet Sodium 07-01 Once a day ASA 81 mg [facility] 29043-19 81MG Oral qd 1 tab 805 Propranolol HCl [facility] 62270-40 120 MG Orally in 1 tablet 72-01 the am and 80 mg in the pm Lisinopril [facility] 44818-73 20 MG Orally 1 tablet 68-01 Once a day Lisinopril-Hydroc [facility] 04262-92 20-25 MG Orally 1 tablet hlorothiazide 37-01 Once a day Amlodipine [facility] 99382-53 5 MG Orally Once 1 tablet Besylate 01-20 a day Rowan Allergy [facility] 11100-96 180 MG Orally 1 tablet 20-00 PRN Procedures Procedure Coding System Code Date Office Visit, Est Pt., Level 4 CPT-4 17120 December 04, 2015 ELECTROCARDIOGRAM, COMPLETE CPT-4 16151 December 04, 2015 Vital Signs Date/Time: December 04, 2015 BMI 36.62 Index Weight 277.6 lbs Height 6 ft 1 in in Cardiac Monitoring Heart Rate 48 /min Oximetry 96% % Blood Pressure Diastolic 78 mm Hg Blood Pressure Systolic 142 mm Hg Results No Known Results Summary Purpose [employer] Submission
--- OUTSIDE RECORDS SUMMARY | 2017-08-12 11:47 | External Medical Summary ---
:1935 Author Organization [facility] Address [address] [place] [address] Care Team Providers Name Role Phone Adilson Raines Unavailable Unavailable PROBLEMS Type Condition ICD9-CM Code [id number] Onset Condition SNOMED Code Code Dates Status Problem Dyspnea on exertion 786.09 Active 01279702 Problem Sleep apnea G47.30 Active 97266780 Problem Pulmonary 416.9 Active 73768352 Hypertension, Chronic, Unspecified Problem Hypertension 401.9 Active 17864168 Problem Sleep Apnea 780.57 Active 14017957 Problem Bradycardia 427.89 Active 88141222 Problem Abnormal 794.30 Active 164648234 Cardiovascular Study Problem Coronary artery I25.10 Active 24615742 disease Problem Venous I87.2 Active 06305284 insufficiency Problem Bradycardia R00.1 Active 28755347 Problem Chronic pulmonary I27.2 Active 53774875 hypertension Problem Essential (primary) I10 Active 60909149 hypertension Problem Dyspnea on exertion R06.09 Active 73412524 ALLERGIES Unknown Allergies SOCIAL HISTORY No smoking Hx information available PLAN OF CARE VITAL SIGNS MEDICATIONS Unknown Medications RESULTS No Results PROCEDURES No Known procedures IMMUNIZATIONS No Known Immunizations
--- OUTSIDE RECORDS SUMMARY | 2017-08-12 11:48 | External Medical Summary | Continuity of Care Document ---
:1935 Author Organization [facility] Allergies Active Description Code Type Severity Reaction Onset Reported/ Identified Relationship Clinical to Patient Status Yes No Known NKDA N/A N/A 07/12/2017 Drug Allergy Medications There is no data. 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 04/30/2017 F I49.9 Cardiac arrhythmia, unspecified 04/30/2017 F I50.9 Heart failure, unspecified 04/30/2017 F J30.2 Other seasonal allergic rhinitis 04/30/2017 F K21.9 Gastro-esophageal reflux disease without esophagitis 04/30/2017 F R53.83 Other fatigue 07/08/2017 BURT HUSTON, F G47.33 Obstructive sleep EMILE apnea (adult) (pediatric) 07/08/2017 BURT HUSTON, F I10 Essential (primary) EMILE hypertension 07/08/2017 BURT HUSTON, F I25.10 Atherosclerotic heart EMILE disease of [place] coronary artery without angina pectoris 07/08/2017 BURT HUSTON, F I49.9 Cardiac arrhythmia, EMILE unspecified 07/08/2017 BURT HUSTON, F I50.9 Heart failure, EMILE unspecified 07/08/2017 BURT HUSTON, F J30.2 Other seasonal EMILE allergic rhinitis 07/08/2017 BURT HUSTON, F K21.9 Gastro-esophageal EMILE reflux disease without esophagitis 07/08/2017 BURT HUSTON, F R53.83 Other fatigue EMILE Procedures Code Description [place] [address] EST PATIENT 04/30/2017 LEVEL 3 47613 EST PATIENT 07/08/2017 LEVEL 3 Results Test Result Range BLOOD UREA NITROGEN - 10/11/12 12:39 BLOOD UREA NITROGEN 17 mg/dL 7-20 CREATININE - 10/11/12 12:39 CREATININE 1.1 mg/dL 0.8-1.3 Encounters ACCT Visit Discharge Status Pt. Type Provider Facility Loc./Unit Complaint No. Date/Time [id number] 10/11/2012 10/11/2012 DIS Outpatient Giacomo HUSTON, [place] [facility] [id number] 12:19:00 12:19:00 [facility] [id number] 07/08/2017 07/08/2017 CLS Outpatient BURT CAO 13:29:00 23:59:59 , [facility] OFFICE [id number] 04/30/2017 Document 14:09:00 Registratio n
--- OUTSIDE RECORDS SUMMARY | 2017-08-12 11:48 | External Medical Summary ---
:1935 Author Organization [employer] Care Team Providers Name Role Phone Adilson Raines Provider Role Unavailable Allergies No Known Allergies Problems Problem Type Condition Code Onset Dates Condition Status Problem Bradycardia 427.89 Active Problem Dyspnea on exertion 786.09 Active Problem Abnormal Cardiovascular Study 794.30 Active Problem Hypertension 401.9 Active Problem Sleep Apnea 780.57 Active Problem Essential (primary) hypertension I10 Active Problem Dyspnea on exertion R06.09 Active Problem Venous insufficiency I87.2 Active Problem Sleep apnea G47.30 Active Problem Pulmonary Hypertension, Chronic, 416.9 Active Unspecified Problem Bradycardia R00.1 Active Problem Chronic pulmonary hypertension I27.2 Active Medications No Known Medications Results No Known Results Summary Purpose [employer] Submission
[2017-08-12] MEDS: LR 1,000 ML IV SCH ×3 (12:11→15:46)
[2017-08-12] MEDS ORDERED: PROCHLORPERAZINE 10 MG/2 ML INJECTION IVP ONE (13:20)
[2017-08-12] MEDS ORDERED: KETOROLAC 15 MG/ML INJECTION IVP ONE (13:20)
--- NOTE | 2017-08-12 13:20 | CT Scan Report ---
Indication: dyspnea PROCEDURE: CT angio pulm emboli and CT abdomen and pelvis with contrast: Encounter: Initial CT angiogram of the chest for pulmonary embolus: Comparison: Chest x-ray from today Technique: Axial CT pulmonary angiographic phase images were performed through the chest after the administration of intravenous contrast. Coronal and Sagittal MIP reconstructed images were created and reviewed. Automated Exposure Control and Iterative Reconstruction dose reducing techniques were utilized. Contrast: Omnipaque 350 100 mL Findings: Pulmonary arteries: Exam is diagnostic to the subsegmental pulmonary arterial level. There are no filling defects identified to suggest a pulmonary embolus. Other findings: Minimal dependent atelectasis in the lower lobes. No pneumothorax or pleural effusion. No lobar consolidative pneumonia. No pulmonary masses. The central airways are patent. Moderate respiratory motion artifact. No axillary or mediastinal adenopathy. Heart is severely enlarged. No pericardial effusion. Impression: No pulmonary embolus or acute intrathoracic disease process. CT abdomen and pelvis with contrast: Comparison: None Technique: Axial CT images were performed through the abdomen and pelvis after the administration of intravenous contrast. Coronal and sagittal two-dimensional reformats. Automated Exposure Control and Iterative Reconstruction dose reducing techniques were utilized. Contrast: Omnipaque 350 100 mL Findings: The liver is grossly normal. Gallbladder is surgically absent. Stomach is distended with fluid. Duodenal diverticulum noted incidentally. The spleen, pancreas and adrenal glands are normal. Small low-attenuation renal foci, too small to characterize. No renal mass or hydronephrosis. No abdominal or pelvic lymphadenopathy. Scattered arterial atherosclerotic plaque. Bladder is completely decompressed. Prominent stool ball in the rectum measuring 5.7 cm in diameter. No free fluid. No evidence of a bowel obstruction. There are fluid-filled loops of small and large bowel. No findings to suggest appendicitis. Mild small bowel wall thickening seen in the pelvis. Impression: Findings of a gastroenteritis. No acute obstruction. .
--- NOTE | 2017-08-12 17:52 | History & Physical Report ---
History of Present Illness Date: 08/12/17 Chief complaint: Breathing hard HPI: "Carlin" J Luis is a 81 y/o male who developed sudden onset shortness of breath while eating a sandwich. Over the next few minutes, it became much worse. He developed severe chest heaviness, and it felt like something was driving on top of his chest. He broke out into a "big horrible sweat". He felt nauseated and vomited. He reports "some" abdominal pain, and "sort of" diarrhea. He hasn't voided all day. He can't recall if he had a headache or felt dizzy at that time. He feels weak in general and complains of gait instability which he attributes to "age". He can't recall any numbness/tingling of late. His states that he's been ill with URI symptoms on and off since the beginning of the year, with a dry hacking cough, sinus drainage. He also had a tooth pulled in his right lower jaw and his family thinks that he probably hasn't been taking in PO as well as he usually would b/c of pain. He's had some low-grade temps just over 100 this past week. He took Amoxicillin x10 days the end of June, but no abx since then. Because of his chest pain and dyspnea, 911 was activated and he was transported to [facility] ED. He arrived on 15L NRB, and was weaned down quickly to 4L. He was hemodynamically stable. EKG showed paced rhythm. Trop was negative. D-dimer was 3595, and CTA was obtained, which was negative for PE or pneumonia. He also had profuse diarrhea, to the extent that a rectal tube was inserted to protect skin integrity. GI panel was negative. A CT scan of his abdomen was also done -- this revealed gastroenteritis. WBC was slightly elevated at 11.3, hgb was elevated at 18.8. Na was high at 146, K slightly low at 3.5. Renal function was stable with creatinine of 1.1 and BUN of 16. Total bili was 1.7 but other LFTs were normal. Lactate was elevated at 2.7 without a clear bacterial source. He received 3L of IVF in the ED, and multiple doses of antiemetics. Dr. Pennington was notified, and the patient was admitted to observation status to trend troponin, monitor electrolytes d/t GI losses, and provide hydration. Review of Systems All systems PM: 10-point ROS was reviewed, no additional remarkable complaints except - Constitutional Constitutional: Present: as per HPI - EENMT Eyes: Present: requires corrective lenses, other (difficulty focusing for quite some time - sees Dr. Waldron) Nose: Present: as per HPI Mouth/Throat: Present: as per HPI. Absent: changes in swallowing - Cardiovascular Cardiovascular: Present: as per HPI Vascular: Present: see HPI - Respiratory Respiratory: Present: as per HPI - Gastrointestinal Gastrointestinal: Present: as per HPI - Genitourinary Genitourinary: Present: as per HPI. Absent: dysuria - Musculoskeletal Musculoskeletal: Present: muscle weakness. Absent: back pain - Integumentary/Breasts Integumentary: Absent: rash, wounds - Neurological Neurological: Present: as per HPI - Psychiatric Psychiatric: Absent: depression - Endocrine Endocrine: Present: excessive sweating. Absent: palpitations - Hematologic/Lymphatic Hematologic/Lymphatic: Absent: easy bruising - Allergic/Immunologic Allergic/Immunologic: Absent: seasonal rhinorrhea Past Medical History CAD Systolic CHF, EF 45% HTN GERD BCC Migraine headache Obstructive sleep apnea - uses CPAP Osteoarthritis Tremor Allergic rhinitis Obesity, BMI 37.0 Surgical History: Heart cath 08/21/16: mild-moderate CAD, EF 45%. Excision of BCC L frontal scalp with complex closure: 10/29/16. Bilateral cataract removal. Colonoscopy with polypectomy. Back surgery. B/L knee replacements. Hernia repair. Cholecystectomy Family History: Family History (Last Reviewed 12/09/16 @ 10:56 by Paola Grant RN) Mother Stroke HTN (hypertension) Arthritis Aneurysm Father Stroke Melanoma HTN (hypertension) Aneurysm Brother Diabetes mellitus Colon cancer Family History Updates: Strong family history for strokes: Father had a stroke at age 49, he also had melanoma, an aneurysm, and HTN. Carlin's paternal unlce of a stroke at age 47. His paternal grandfather also had a stroke at an early age. Carlin's mother had a stroke, HTN, and an aneurysm - she in her 90s. He has a younger brother who has colon cancer and diabetes. His 2 sisters are healthy. 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 Darren QUAN _ Dr. Amirah Neumannthsheyla _ Dr. Waldron Medications Home Medications Medication Instructions Recorded Confirmed Type Inderal LA (propranolol ER) 120 mg 120 mg PO DAILY #90 cap 06/30/17 08/12/17 Rx capsule,24 hr Zestoretic (lisinopril 20 1 tab PO DAILY #90 tab 06/30/17 08/12/17 Rx mg-hydrochlorothiazide 25 mg) tablet Amlodipine [Norvasc] 5 mg PO DAILY 08/12/17 08/12/17 History Aspirin [Adult Aspirin Regimen] 81 mg PO DAILY 08/12/17 08/12/17 History Fexofenadine/Pseudoephedrine 1 each PO DAILY PRN 08/12/17 08/12/17 History [Rowan-D 24 Hour Tablet] Lisinopril [Prinivil] 20 mg PO DAILY 08/12/17 08/12/17 History Pantoprazole Tab [Protonix Tab] 40 mg PO BID 08/12/17 08/12/17 History Propranolol LA [Inderal LA] 80 mg PO Q2D 08/12/17 08/12/17 History Allergies Allergy/AdvReac Type Severity Reaction Status Date / Time No Known Drug Allergies Allergy Unknown Verified 12/09/16 10:54 Exam Vital Signs: Temperature 98.0 F 08/12/17 16:01 Pulse Rate 67 08/12/17 16:01 Respiratory Rate 18 08/12/17 16:01 Blood Pressure 150/73 H 08/12/17 16:01 Pulse Oximetry 94 08/12/17 16:01 Height/Weight/BMI: Height 1.83 m Weight 123.6 kg Body Mass Index 36.9 - Constitutional Present: no acute distress, well nourished, well developed, obese - Routine HEENT Exam Head: Present: normocephalic Eye: Present: PERRL. Absent: conjunctival icterus, scleral injection ENT: Present: mucous membranes dry, oropharynx clear Comments: a right lower tooth has been extracted. Gingiva is not erythemic and there is no visible drainage. The area is swollen and tender but not fluctuant. - Routine Neck Exam Present: supple - Routine Respiratory Exam Present: CTA bilaterally - Routine Cardiovascular Exam Present: RRR, S1, S2 - Routine Abdominal Exam Present: soft, non distended, non tender. Absent: normoactive bowel sounds ( hypoactive) - Routine Rectal Exam Comments: rectal tube in place. - Routine Extremities Exam Present: no edema, pulses intact - Routine Skin Exam Present: intact, dry, warm - Routine Neurological Exam Present: alert, oriented X3, CN II-XII intact, moving all extremities, vision grossly intact, hearing grossly intact (slightly EKUK), normal speech - Routine Psychiatric Exam Present: normal affect, normal thought process, cooperative Results - Labs CBC & Chem 7: 08/12/17 11:13 08/12/17 11:13 - ECG Data Tracing #1 I reviewed this ECG and interpreted as documented below: paced rhythm. - Imaging and Cardiology CT scan - chest Status: image reviewed by me Additional comments: Date of Exam: 08/12/17 Ordering Provider: Mamadou Caraballo MD Type of Exam(s): CT angio pulm emboli Reason for Exam(s): dyspnea Indication: dyspnea PROCEDURE: CT angio pulm emboli and CT abdomen and pelvis with contrast: Encounter: Initial CT angiogram of the chest for pulmonary embolus: Comparison: Chest x-ray from today Technique: Axial CT pulmonary angiographic phase images were performed through the chest after the administration of intravenous contrast. Coronal and Sagittal MIP reconstructed images were created and reviewed. Automated Exposure Control and Iterative Reconstruction dose reducing techniques were utilized. Contrast: Omnipaque 350 100 mL Findings: Pulmonary arteries: Exam is diagnostic to the subsegmental pulmonary arterial level. There are no filling defects identified to suggest a pulmonary embolus. Other findings: Minimal dependent atelectasis in the lower lobes. No pneumothorax or pleural effusion. No lobar consolidative pneumonia. No pulmonary masses. The central airways are patent. Moderate respiratory motion artifact. No axillary or mediastinal adenopathy. Heart is severely enlarged. No pericardial effusion. Impression: No pulmonary embolus or acute intrathoracic disease process. CT scan - abdomen Status: image reviewed by me Additional comments: CT abdomen and pelvis with contrast: Comparison: None Technique: Axial CT images were performed through the abdomen and pelvis after the administration of intravenous contrast. Coronal and sagittal two-dimensional reformats. Automated Exposure Control and Iterative Reconstruction dose reducing techniques were utilized. Contrast: Omnipaque 350 100 mL Findings: The liver is grossly normal. Gallbladder is surgically absent. Stomach is distended with fluid. Duodenal diverticulum noted incidentally. The spleen, pancreas and adrenal glands are normal. Small low-attenuation renal foci, too small to characterize. No renal mass or hydronephrosis. No abdominal or pelvic lymphadenopathy. Scattered arterial atherosclerotic plaque. Bladder is completely decompressed. Prominent stool ball in the rectum measuring 5.7 cm in diameter. No free fluid. No evidence of a bowel obstruction. There are fluid-filled loops of small and large bowel. No findings to suggest appendicitis. Mild small bowel wall thickening seen in the pelvis. Impression: Findings of a gastroenteritis. No acute obstruction. Chest x-ray Status: image reviewed by me Additional comments: Date of Exam: 08/12/17 Ordering Provider: Mamadou Caraballo MD Type of Exam(s): XR chest 1V Reason for Exam(s): chest pain Indication: chest pain PROCEDURE: XR chest 1V: Encounter: Initial Comparison: 11/05/2016 Findings: The lungs are stable in appearance without new focal airspace consolidation. There is no pleural effusion or pneumothorax. The heart size, pulmonary vascularity and mediastinal contours are unchanged. Dual-lead left pacemaker is new. IMPRESSION: No acute cardiopulmonary disease. Assessment and Plan (1) Chest pain Current visit: Yes Status: Acute (2) Gastroenteritis Current visit: Yes Status: Acute Assessment and Plan: IMPRESSION Chest pain, resolved Gastroenteritis Dehydration, as evidenced by hgb of 18.8 and sodium of 146 with profuse GI losses Leukocytosis, mild Hypokalemia, POA Hyperbilirubinemia, POA Rule out severe sepsis - Elevated lactate of 2.7 without suspicion of bacterial etiology Elevated d-dimer with negative CT chest Weakness and gait instability CAD Systolic CHF, EF 45% HTN GERD Migraine headache Obstructive sleep apnea - uses CPAP Osteoarthritis Tremor Allergic rhinitis Obesity, BMI 37.0 PLAN Admit, obs. status, Dr. Pennington attending. Chest pain - monitor tele, trend trop. Discussed with Dr. Mario Raines - he will see him in consultation. Monitor fluid balance closely, hx of mildly reduced LV function. Gastroenteritis/dehydration/hypernatremia/hemoconcentration - IVF with KCl. Check Mg. Check stool for occult blood (hold asa until we know this is neg). Hold amlodipine, lisinopril, HCTZ d/t dehydration and risk for hypotension + give time to monitor kidney function post-contrast. Elevated lactate - bacterial infection not suspected based on current results, though need to rule it out. Check UA and procalcitonin and blood cultures. Recheck lactate to ensure downward trend. Elevated d-dimer - consider doppler BLE. CTA chest neg for PE. Weakness and gait instability - consult PT/OT. GERD - cont home PPI. Recheck CBC and CMP in am to f/u on leukocytosis and hypernatremia and elevated total bili. Advanced directives: Names and 2 daughters as DPOAs; requests full code. Care to be returned to Dr. Banks at discharge. DVT Prophylaxis: SCD's GI Prophylaxis: Protonix Resuscitation Status: Full Code - Physician Narrative Physician: Curtis Pennington MD Narrative: Date: 08/12/17 Time: 2119 I have independently evaluated and examined this patient. I reviewed the chart, the patient's history, and the INSPECTOR TOOL/PA's documented findings as above. We discussed and formulated the assessment and plan as above with additions as below: 81 yo who presented to ED after sudden onset of dyspnea and chest pain. He says pain was 6 of 10. He does not think it radiated. He broke out in a cold sweat and had nausea. He was incontinent of stool. He was initially hypoxic in ED but was on RA when seen on medical floor. He has had low-grade fevers per . He had a tooth extracted about 10 days ago. He continues to have jaw pain and swelling. He had copious loose stools after arriving in the ED. A rectal tube was placed. CT a/p suggested gastroenteritis. He denies any diarrhea recently before today. Lactate 3.3. NAD. Mild swelling to right inferior aspect of jaw with slight warmth. CTAB. RRR. s/nt/nd +bs. No edema. Rectal tube in. oriented. cooperative Unclear source for sepsis. Check blood cx given recent dental surgery and continued pain/swelling. Continue IVF and monitor electrolytes with diarrhea. Also monitor for fluid overload as he has a reduced EF. Stool occult blood is positive. Continue PPI bid. Monitor hgb. Unclear whether bleeding related to placement of rectal tube. Dr. Malou Raines will be consulted. trial of flonase for allergic rhinitis. continue rowan SCD's for DVT ppx Hospital Course Summary Disclaimer: The visit summary below is not to be considered part of the above Progress Note. Hospital Course: 08/12/17 Admit, obs. status, Dr. Pennington attending. Chest pain - monitor tele, trend trop. Discussed with Dr. Mario Raines - he will see him in consultation. Monitor fluid balance closely, hx of mildly reduced LV function. Gastroenteritis/dehydration/hypernatremia/hemoconcentration - IVF with KCl. Check Mg. Check stool for occult blood (hold asa until we know this is neg). Hold amlodipine, lisinopril, HCTZ d/t dehydration and risk for hypotension + give time to monitor kidney function post-contrast. Elevated lactate - bacterial infection not suspected based on current results, though need to rule it out. Check UA and procalcitonin and blood cultures. Recheck lactate to ensure downward trend. Elevated d-dimer - consider doppler BLE. CTA chest neg for PE. Weakness and gait instability - consult PT/OT. GERD - cont home PPI. Recheck CBC and CMP in am to f/u on leukocytosis and hypernatremia and elevated total bili. Advanced directives: Names and 2 daughters as DPOAs; requests full code. Care to be returned to Dr. Banks at discharge.
[2017-08-12] MEDS ORDERED: POTASSIUM CHLORIDE INJ 20 MEQ in NS 1,000 ML IV SCH (18:00)
[2017-08-12] MEDS ORDERED: ONDANSETRON 4 MG/2 ML INJECTION IVP PRN (18:04)
[2017-08-12] MEDS ORDERED: MORPHINE SULFATE 4mg INJECTION IVP PRN (18:06)
[2017-08-12] MEDS: NS with KCL 20mEq 1,000ml IV SCH (18:15)
[2017-08-12] MEDS: FLUTICASONE NASAL SPRAY 50mcg EA NOSTRIL SCH (22:07)
[2017-08-12] MEDS: --POM--PANTOPRAZOLE 40 MG TABLET PO SCH (22:07)
[2017-08-13] MEDS: NS with KCL 20mEq 1,000ml IV SCH ×2 (05:37→16:08)
[2017-08-13] MEDS: --POM--PANTOPRAZOLE 40 MG TABLET PO SCH ×2 (06:11→17:46)
[2017-08-13] MEDS: FLUTICASONE NASAL SPRAY 50mcg EA NOSTRIL SCH (09:03)
[2017-08-13] MEDS: PROPRANOLOL 120 MG PO SCH (09:05)
--- NOTE | 2017-08-13 10:44 | Cardiology Consult Note ---
<Nalini Monroy - Last Filed: 08/13/17 16:24> History of Present Illness Consult reason: chest pain, shortness of breath History of present illness: Mr. Carlin Dietz is a 81 year old male who has a medical history including HTN, GERD, PPM. Pt was sitting at home yesterday when he said all of a sudden he felt like he was going to throw up. He went to the bathroom but never actually vomited. He made it back to the kitchen slowly - due to CP and SOB and started to sweat profusely so he called 911 because his was not home. Pt denied syncope. Pt said CP felt like an "elephant was on his chest." Pt pointed to the left side of his chest and denied radiation to left arm or jaw. He said right jaw area was slightly painful but is from the tooth that got pulled a few days ago. Pt denied taking nitro at home. When EMS arrived and took his BP he said it was very low, which is very unlike him because normally it runs high. Serial troponins have been negative. D dimer is [address] is negative for PE or pneumonia. CT abdomen/pelvis showed gastroenteritis. Pt today denies chest pain, shortness of breath, heart palpitations, dizziness/ lightheadedness. Pt complains of dyspnea on exertion but says is chronic. Pt said been having diarrhea for the last few days. Pt said in August 2016 he had this same chest pain and came to the ER. Pt had heart cath by Dr. Gooden during this time and did not need intervention. Pt had also had a heart cath in [address] Mario Raines and had no major blockages - angiogram from 2017 looked unchanged. Pt had echo November [address] Adilson Raines, which showed normal EF and LVH. Pt had PPM from Dr. Adilson Raines around November 2016 as well for bradycardia - pt was unable to decrease or discontinue propanolol due to headaches. Review of Systems All systems PM: 10-point ROS was reviewed, no additional remarkable complaints except PFSH Patient Stated Medical History Transient Ischemic Attacks ( Yes: POSSIBLY TIA) Cataracts Yes Cardiac Arrhythmia Yes: BRADYCARDIA - RESULTED IN [employer] Hypertension Yes Sleep Apnea Yes Gastroesophageal Reflux Yes Disease Clinic Medical History (Last Reviewed 12/09/16 @ 10:55 by Paola Grant RN) BCC (basal cell carcinoma of skin) (Resolved Medical) HTN (hypertension) (Acute Medical) GERD (gastroesophageal reflux disease) (Acute Medical) Migraine headache (Chronic Medical) Obstructive sleep apnea (Chronic Medical) Osteoarthritis (Chronic Medical) Tremor (Chronic Medical) Bronchitis (Resolved Medical) Cataracts, bilateral (Resolved Medical) Colon polyps (Resolved Medical) Surgical History: Heart cath 08/21/16: mild-moderate CAD, EF 45%. Excision of BCC L frontal scalp with complex closure: 10/29/16. Bilateral cataract removal. Colonoscopy with polypectomy. Back surgery. B/L knee replacements. Hernia repair. Cholecystectomy Family History: Family History (Last Reviewed 12/09/16 @ 10:56 by Paola Grant RN) Mother Stroke HTN (hypertension) Arthritis Aneurysm Father Stroke Melanoma HTN (hypertension) Aneurysm Brother Diabetes mellitus Colon cancer - Social History Smoking status: Never smoker Household members: spouse Current occupational status: retired Current residence: Apartment/Private Home Medications Home Medications Medication Instructions Recorded Confirmed Type Inderal LA (propranolol ER) 120 mg 120 mg PO DAILY #90 cap 06/30/17 08/12/17 Rx capsule,24 hr Zestoretic (lisinopril 20 1 tab PO DAILY #90 tab 06/30/17 08/12/17 Rx mg-hydrochlorothiazide 25 mg) tablet Amlodipine [Norvasc] 5 mg PO DAILY 08/12/17 08/12/17 History Aspirin [Adult Aspirin Regimen] 81 mg PO DAILY 08/12/17 08/12/17 History Fexofenadine/Pseudoephedrine 1 each PO DAILY PRN 08/12/17 08/12/17 History [[place]-D 24 Hour Tablet] Lisinopril [Prinivil] 20 mg PO DAILY 08/12/17 08/12/17 History Pantoprazole Tab [Protonix Tab] 40 mg PO BID 08/12/17 08/12/17 History Propranolol LA [Inderal LA] 80 mg PO Q2D 08/12/17 08/12/17 History Acetaminophen [Tylenol] 650 mg PO Q5H PRN tab 08/14/17 Rx Fluticasone Nasal [place] [Flonase] 2 spray EA NOSTRIL DAILY bottle 08/14/17 Rx Loperamide [Imodium] 2 mg PO PRN PRN cap 08/14/17 Rx Allergies Allergy/AdvReac Type Severity Reaction Status Date / Time No Known Drug Allergies Allergy Unknown Verified 12/09/16 10:54 Exam Vital signs: Temperature 98.1 F 08/13/17 07:46 Pulse Rate 59 L 08/13/17 08:00 Respiratory Rate 18 08/13/17 07:46 Blood Pressure 143/73 H 08/13/17 07:46 Pulse Oximetry 97 08/13/17 07:46 - Constitutional no acute distress, well developed, obese, cooperative - Routine HEENT Exam Head: Present: normocephalic, atraumatic Eye: Present: EOMI ENT: Present: mucous membranes moist - Routine Neck Exam Present: supple, full ROM, normal carotid upstroke. Absent: JVD, carotid bruit - Routine Chest/Breast/Axilla Exam Chest wall: Present: pacemaker (site well healed) - Routine Respiratory Exam Present: CTA bilaterally. Absent: rhonchi, wheezes, crackles - Routine Cardiovascular Exam Present: RRR, no murmur, S4 - Routine Abdominal Exam Present: soft, normoactive bowel sounds, tenderness (upon palpation), non distended. Absent: organomegaly, mass - Routine Extremities Exam Present: no edema, pulses intact, normal capillary refill. Absent: cyanosis, clubbing - Routine Skin Exam Present: intact, dry, warm. Absent: cyanosis, erythema - Routine Neurological Exam Present: alert, oriented X3, CN II-XII intact, moving all extremities, vision grossly intact, hearing grossly intact, normal speech. Absent: sensory deficit , motor deficit - Routine Psychiatric Exam Present: normal affect, cooperative Results 08/13/17 02:30 08/13/17 02:29 Cardiac Enzymes 08/12/17 08/13/17 Range/Units 18:53 02:29 AST 14 L (17-59) U/L Troponin I 0.014 0.014 (0-0.12) ng/ml CBC 08/12/17 08/13/17 Range/Units 20:44 02:30 WBC 18.0 H D (4.5-11.0) T/MM3 RBC 5.19 (4.50-5.90) M/MM3 Hgb 15.7 D 15.1 (13.5-17.5) GM/DL Hct 45.1 D (41-53) % Plt Count 211 (130-400) T/MM3 Neut # (Auto) Not performed Lymph # (Auto) Not performed [place] # (Auto) Not performed Eos # (Auto) Not performed Baso # (Auto) Not performed Comprehensive Metabolic Panel 08/13/17 Range/Units 02:29 Sodium 142 (134-144) MEQ/L Potassium 4.3 D (3.6-5) MEQ/L Chloride 105 (98-107) MEQ/L Carbon Dioxide 26 (22-30) MEQ/L BUN 25.0 H D (9-20) MG/DL Creatinine 1.6 H D (0.8-1.5) MG/DL Glucose 113 H (75-110) MG/DL Calcium 8.4 (8.4-10.2) MG/DL AST 14 L (17-59) U/L ALT 26 (21-72) U/L Alkaline Phosphatase 55 D (38-126) U/L Total Protein 6.0 L (6.3-8.2) G/DL Albumin 3.0 L (3.5-5.0) G/DL Intake and Output 08/12/17 08/13/17 08/13/17 22:59 06:59 14:59 Intake Total 0 / 350.65 1000 / 1000 Balance 0 / 350.65 1000 / 1000 Intake: IV 1000 / 1000 NS with KCL 20 mEq 1,000 ml @ 1000 / 1000 100 mls/hr IV .Q10H SHAI Rx#: [id number] Oral 0 / 0 Other: Stool Color Brown Blood Tinged Stool Consistency Liquid Liquid Loose Size of Bowel Movement Moderate Moderate # Incontinent Bowel Movements 1 1 Weight 123.6 kg 125.6 kg Patient Weight 08/14/17 06:59 Weight 125.6 kg - Imaging and Cardiology EKG results: image reviewed (V paced) Imaging & Cardiology Narrative: Chest CTA 08/12/17 Impression: no pulmonary embolus CT abdomen/pelvis 08/12/17 Impression: Findings of a gastroenteritis. No acute obstruction. Echo November 2016 Dr. Adilson Raines Normal EF. LVH PPM November 2016 Dr. Adilson Raines for bradycardia Assessment and Plan - Assessment and Plan non cardiac CP PPM No further cardiac workup. Will sign off. Please let us know if can be of further assistance. Thank you for the consult. Pt was personally seen and interviewed by Dr. Mario Raines who created the A&P. Hospital Course Summary Disclaimer: The visit summary below is not to be considered part of the above Progress Note. Hospital Course: 08/12/17 Admit, obs. status, Dr. Pennington attending. Chest pain - monitor tele, trend trop. Discussed with Dr. Mario Raines - he will see him in consultation. Monitor fluid balance closely, hx of mildly reduced LV function. Gastroenteritis/dehydration/hypernatremia/hemoconcentration - IVF with KCl. Check Mg. Check stool for occult blood (hold asa until we know this is neg). Hold amlodipine, lisinopril, HCTZ d/t dehydration and risk for hypotension + give time to monitor kidney function post-contrast. Elevated lactate - bacterial infection not suspected based on current results, though need to rule it out. Check UA and procalcitonin and blood cultures. Recheck lactate to ensure downward trend. Elevated d-dimer - consider doppler BLE. CTA chest neg for PE. Weakness and gait instability - consult PT/OT. GERD - cont home PPI. Recheck CBC and CMP in am to f/u on leukocytosis and hypernatremia and elevated total bili. Advanced directives: Names and 2 daughters as DPOAs; requests full code. Care to be returned to Dr. Banks at discharge. <Lauryn aRines - Last Filed: 08/17/17 22:35> [facility] Medical History (Last Reviewed 12/09/16 @ 10:55 by Paola Grant, GEORGE) BCC (basal cell carcinoma of skin) (Resolved Medical) HTN (hypertension) (Acute Medical) GERD (gastroesophageal reflux disease) (Acute Medical) Migraine headache (Chronic Medical) Obstructive sleep apnea (Chronic Medical) Osteoarthritis (Chronic Medical) Tremor (Chronic Medical) Bronchitis (Resolved Medical) Cataracts, bilateral (Resolved Medical) Colon polyps (Resolved Medical) Family History: Family History (Last Reviewed 12/09/16 @ 10:56 by Paola Grant, GEORGE) Mother Stroke HTN (hypertension) Arthritis Aneurysm Father Stroke Melanoma HTN (hypertension) Aneurysm Brother Diabetes mellitus Colon cancer Exam Vital signs: Temperature 97.6 F 08/14/17 07:50 Pulse Rate 59 L 08/14/17 08:00 Respiratory Rate 18 08/14/17 07:50 Blood Pressure 169/78 H 08/14/17 07:50 Pulse Oximetry 95 03/02/18 07:50 Results 08/14/17 05:55 08/14/17 05:55 Assessment and Plan - Attestation Attestation Narrative: 08/17/17 22:34 pt personally interviewed and examined and I agree with the above findings Hospital Course Summary Disclaimer: The visit summary below is not to be considered part of the above Progress Note.
--- NOTE | 2017-08-13 15:35 | Progress Note ---
- Date 08/13/17 Subjective: Says he feels better. Reports watery stool about every 3 hours. He denies n/v. Has not eaten much. No chest pain, soa. Objective Vital signs: Temperature 98.0 F 08/13/17 15:09 Pulse Rate 66 08/13/17 15:09 Respiratory Rate 18 08/13/17 15:09 Blood Pressure 143/85 H 08/13/17 15:09 Pulse Oximetry 94 08/13/17 15:09 Height/Weight/BMI: Height 6 ft Weight 125.6 kg Body Mass Index 36.9 - Constitutional Present: no acute distress - Routine HEENT Exam Head: Present: normocephalic, atraumatic Eye: Present: EOMI, PERRL - Routine Respiratory Exam Present: CTA bilaterally - Routine Cardiovascular Exam Present: RRR - Routine Abdominal Exam Present: soft, non distended, non tender - Routine Extremities Exam Present: no edema - Routine Neurological Exam Present: alert - Routine Psychiatric Exam Present: cooperative Results - Labs CBC & Chem 7: 08/13/17 02:30 08/13/17 02:29 Microbiology Results: Microbiology 08/13/17 04:32 Urine, Voided (Cc/notcc) Urine Culture - Preliminary Culture Initiated - Results Pending 08/12/17 19:13 Peripheral/Iv Start Blood Culture - Preliminary Culture Initiated - Results Pending 08/12/17 18:53 Peripheral/Iv Start Blood Culture - Preliminary Culture Initiated - Results Pending Assessment and Plan (1) Chest pain Current visit: Yes Status: Acute (2) Gastroenteritis Current visit: Yes Status: Acute Assessment and Plan: IMPRESSION Chest pain, resolved Gastroenteritis Dehydration, as evidenced by hgb of 18.8 and sodium of 146 with profuse GI losses Leukocytosis, mild Hypokalemia, POA Hyperbilirubinemia, POA Rule out severe sepsis - Elevated lactate of 2.7 without suspicion of bacterial etiology Elevated d-dimer with negative CT chest Weakness and gait instability CAD HTN GERD Migraine headache Obstructive sleep apnea - uses CPAP Osteoarthritis Tremor Allergic rhinitis Obesity, BMI 37.0 LOLY PLAN Chest pain resolved. Dr. Mario Raines consulted. Patient does not have systolic dysfunction. EF is 60%. Gastroenteritis/dehydration/hypernatremia/hemoconcentration - IVF with KCl. Continue IVF for LOLY. Patient had contrast. 1 of 2 stools positive for occult blood. Monitor hgb. Patient had a rectal tube at one point and ? trauma d/t rectal tube. HGB 15.7 to 15.1. Monitor Elevated lactate has normalized but procalcitonin is elevated. No clear bacterial infection. Blood cx pending. WBC is elevated. Monitor. Weakness and gait instability - consult PT/OT. GERD - cont home PPI. Recheck CBC and renal in am to f/u on leukocytosis and LOLY. Advanced directives: Names and 2 daughters as DPOAs; requests full code. Care to be returned to Dr. Banks at discharge. - Physician Narrative Narrative: Date: 08/13/17 Time: 1531 Hospital Course Summary Disclaimer: The visit summary below is not to be considered part of the above Progress Note. Hospital Course: 08/12/17 Admit, obs. status, Dr. Pennington attending. Chest pain - monitor tele, trend trop. Discussed with Dr. Mario Raines - he will see him in consultation. Monitor fluid balance closely, hx of mildly reduced LV function. Gastroenteritis/dehydration/hypernatremia/hemoconcentration - IVF with KCl. Check Mg. Check stool for occult blood (hold asa until we know this is neg). Hold amlodipine, lisinopril, HCTZ d/t dehydration and risk for hypotension + give time to monitor kidney function post-contrast. Elevated lactate - bacterial infection not suspected based on current results, though need to rule it out. Check UA and procalcitonin and blood cultures. Recheck lactate to ensure downward trend. Elevated d-dimer - consider doppler BLE. CTA chest neg for PE. Weakness and gait instability - consult PT/OT. GERD - cont home PPI. Recheck CBC and CMP in am to f/u on leukocytosis and hypernatremia and elevated total bili. Advanced directives: Names and 2 daughters as DPOAs; requests full code. Care to be returned to Dr. Banks at discharge. 3/ Chest pain resolved. Dr. Mario Raines consulted. Patient does not have systolic dysfunction. EF is 60%. Gastroenteritis/dehydration/hypernatremia/hemoconcentration - IVF with KCl. Continue IVF for LOLY. Patient had contrast. 1 of 2 stools positive for occult blood. Monitor hgb. Patient had a rectal tube at one point and ? trauma d/t rectal tube. HGB 15.7 to 15.1. Monitor Elevated lactate has normalized but procalcitonin is elevated. No clear bacterial infection. Blood cx pending. WBC is elevated. Monitor. Weakness and gait instability - consult PT/OT. GERD - cont home PPI. Recheck CBC and renal in am to f/u on leukocytosis and LOLY. Advanced directives: Names and 2 daughters as DPOAs; requests full code. Care to be returned to Dr. Banks at discharge.
[2017-08-13] MEDS ORDERED: LOPERAMIDE 2 MG CAPSULE PO PRN (15:49)
[2017-08-13] MEDS ORDERED: ACETAMINOPHEN 325 MG TABLET PO PRN (17:11)
[2017-08-13 17:20] VITALS: BMI 37.5
[2017-08-14] MEDS ORDERED: AMLODIPINE 5 MG TABLET PO ONE (00:14)
[2017-08-14] MEDS: AMLODIPINE 5 MG TABLET PO ONE ×2 (00:29→08:56)
[2017-08-14] MEDS: NS with KCL 20mEq 1,000ml IV SCH (02:24)
[2017-08-14] MEDS: --POM--PANTOPRAZOLE 40 MG TABLET PO SCH (06:01)
[2017-08-14 07:52] VITALS: BP 169/78; RESP 18; TEMP 97.6; O2SAT 95
[2017-08-14] MEDS ORDERED: PROPRANOLOL 80 MG PO SCH (09:00)
[2017-08-14] MEDS: FLUTICASONE NASAL SPRAY 50mcg EA NOSTRIL SCH (09:04)
[2017-08-14] MEDS: PROPRANOLOL 120 MG PO SCH (09:05)
[2017-08-14 10:00] VITALS: PULSE 59
--- NOTE | 2017-08-14 10:18 | Discharge Summary ---
Discharge Information Date of admission: 08/12/17 15:02 Attending Physician: Curtis Pennington IV, MD Primary care physician: Mason Banks MD Consults: 08/13/17 08:42 Physician Consult [CONS] Routine Consulting Provider: Lauryn Raines Reason For Exam: chest pain Ordering Provider has Notified Milk Of Lime Slaker: Yes - Discharge Diagnosis (1) Chest pain Status: Acute (2) Gastroenteritis Status: Acute - Laboratory Labs: 08/14/17 05:55 08/14/17 05:55 - Microbiology Microbiology 08/13/17 04:32 Urine, Voided (Cc/notcc) Urine Culture - Preliminary No Growth After 1 Day 08/12/17 19:13 Peripheral/Iv Start Blood Culture - Preliminary No Growth After 1 Day 08/12/17 18:53 Peripheral/Iv Start Blood Culture - Preliminary No Growth After 1 Day History of Present Illness HPI: "Magaly Dietz is a 81 y/o male who developed sudden onset shortness of breath while eating a sandwich. Over the next few minutes, it became much worse. He developed severe chest heaviness, and it felt like something was driving on top of his chest. He broke out into a "big horrible sweat". He felt nauseated and vomited. He reports "some" abdominal pain, and "sort of" diarrhea. He hasn't voided all day. He can't recall if he had a headache or felt dizzy at that time. He feels weak in general and complains of gait instability which he attributes to "age". He can't recall any numbness/tingling of late. His states that he's been ill with URI symptoms on and off since the beginning of the year, with a dry hacking cough, sinus drainage. He also had a tooth pulled in his right lower jaw and his family thinks that he probably hasn't been taking in PO as well as he usually would b/c of pain. He's had some low-grade temps just over 100 this past week. He took Amoxicillin x10 days the end of June, but no abx since then. Because of his chest pain and dyspnea, 911 was activated and he was transported to [facility] ED. He arrived on 15L NRB, and was weaned down quickly to 4L. He was hemodynamically stable. EKG showed paced rhythm. Trop was negative. D-dimer was 3595, and CTA was obtained, which was negative for PE or pneumonia. He also had profuse diarrhea, to the extent that a rectal tube was inserted to protect skin integrity. GI panel was negative. A CT scan of his abdomen was also done -- this revealed gastroenteritis. WBC was slightly elevated at 11.3, hgb was elevated at 18.8. Na was high at 146, K slightly low at 3.5. Renal function was stable with creatinine of 1.1 and BUN of 16. Total bili was 1.7 but other LFTs were normal. Lactate was elevated at 2.7 without a clear bacterial source. He received 3L of IVF in the ED, and multiple doses of antiemetics. Dr. Pennington was notified, and the patient was admitted to observation status to trend troponin, monitor electrolytes d/t GI losses, and provide hydration. Objective Vital signs: Temperature 97.6 F 08/14/17 07:50 Pulse Rate 59 L 08/14/17 08:00 Respiratory Rate 18 08/14/17 07:50 Blood Pressure 169/78 H 08/14/17 07:50 Pulse Oximetry 95 08/14/17 07:50 Height/Weight/BMI: Height 6 ft Weight 124.8 kg Body Mass Index 37.5 - Constitutional Present: no acute distress - Routine HEENT Exam Head: Present: normocephalic, atraumatic Eye: Present: EOMI, PERRL - Routine Respiratory Exam Present: CTA bilaterally - Routine Cardiovascular Exam Present: RRR - Routine Abdominal Exam Present: soft, normoactive bowel sounds, non distended, non tender Hospital Course This is a general summary of the patient's hospital course. For more details refer to the complete medical record. Hospital course: Patient received IVF to rehydrate. Diarrhea slowed down on day 2, and he has had no loose stools today. He did have some blood-tinged stools but had had a rectal tube in temporarily. He has had no further chest pain. He was seen by Dr. Raines. His chest pain is noncardiac. Antihypertensive agents were held initially with low BPs. They are resumed on dismissal. Patient has been ambulating in the room. He says he is ready to go home. Discharge Plan - Discharge Disposition Disposition: 01 Discharged Home, Self-Care *Condition: Stable Reason For Visit (Visit label in EMR): diarrhea - Discharge Medications *Discharge Medications: New Loperamide [Imodium] 2 mg PO PRN PRN cap PRN Reason: Diarrhea Acetaminophen [Tylenol] 650 mg PO Q5H PRN tab PRN Reason: Discomfort Fluticasone Nasal [place] [Flonase] 2 spray EA NOSTRIL DAILY bottle Continue Amlodipine [Norvasc] 5 mg PO DAILY Pantoprazole Tab [Protonix Tab] 40 mg PO BID Lisinopril [Prinivil] 20 mg PO DAILY Aspirin [Adult Aspirin Regimen] 81 mg PO DAILY Propranolol LA [Inderal LA] 80 mg PO Q2D Fexofenadine/Pseudoephedrine [[place]-D 24 Hour Tablet] 1 each PO DAILY PRN PRN Reason: Allergy Symptoms Zestoretic (lisinopril 20 mg-hydrochlorothiazide 25 mg) tablet 1 tab PO DAILY #90 tab Inderal LA (propranolol ER) 120 mg capsule,24 hr 120 mg PO DAILY #90 cap - Discharge Packet/Instructions *Diet: regular *Activity: as tolerated *Pain Management/Treatment: na *Wound Care: na *During Business Hours Contact: Dr. Banks - Referrals/Follow Up *Referrals/Follow Up: Mason Banks MD [Family Provider] - - Patient Handouts - Dismissal Complete Discharge Instructions are:: Complete Physician Narrative - Narrative Attestation Narrative: Date: 08/14/17 Time: 5504
[2017-08-14] MEDS ORDERED: LISINOPRIL 20 MG TABLET PO SCH (10:45)
[2017-08-14] MEDS ORDERED: ASPIRIN *EC* 81 MG TABLET PO SCH (10:45)
[2017-08-14] MEDS ORDERED: LISINOPRIL/HCTZ 20/25 MG TABLET PO SCH (10:45)
[2017-08-15] MEDS ORDERED: AMLODIPINE 5 MG TABLET PO SCH (09:00)
== END 2017-08-14 13:10 | disposition home or self-care (01) | DRG 392 ==
LOC: ED 10:31 → MED 10:31
PROVIDERS: ADMIT Hospitalist; ATTEND Hospitalist